=== PATIENT | female | born 1945 | race Caucasian/White ===

== ENCOUNTER 2023-04-01 00:38 | Outpatient (REF) | payer MEDICARE, MEDICAID, SELFPAY ==
[2023-04-01 10:27] LABS: Thyroid Stimulating Hormone <0.007 uIU/mL (0.358-3.740)
== END 2023-04-01 00:39 | disposition home or self-care (01) ==
LOC: LAB 00:38
PROVIDERS: PCP Family Medicine; Visit Provider Family Medicine
DX: E03.9 Hypothyroidism, unspecified (principal)
CPT/HCPCS: 36415; 84443

== ENCOUNTER 2023-05-11 02:02 | Outpatient (REF) | payer MEDICARE, MEDICAID, SELFPAY ==
[2023-05-11 13:11] LABS: Basophils Absolute Auto 0.1 10^3/uL (0.0-0.1); Basophils Percent Auto 0.7 % (0.2-2.0); Eosinophils Absolute Auto 0.3 10^3/uL (0.0-0.7); Eosinophils Percent Auto 3.5 % (0.9-7.0); Hematocrit 42.3 % (36.0-48.0); Hemoglobin 13.4 g/dL (12.0-16.0); Immature Granulocytes Abs Auto 0.02 10^3/uL (0.00-0.03); Immature Granulocytes Pct Auto 0.2 % (0.0-0.5); Lymphocytes Absolute Auto 2.3 10^3/uL (1.2-3.8); Lymphocytes Percent Auto 27.7 % (20.5-60.0); Mean Corpuscular HGB Conc 31.7 g/dL (29.9-35.2); Mean Corpuscular Hemoglobin 33.5 pg (26.7-34.0); Mean Platelet Volume 12.2 fL (9.5-13.5); Monocytes Absolute Auto 0.5 10^3/uL (0.3-0.8); Monocytes Percent Auto 6.5 % (1.7-12.0); Neutrophils Absolute Auto 5.1 10^3/uL (1.4-6.5); Neutrophils Percent Auto 61.4 % (43.0-75.0); Platelet Count 282 10^3/uL (150-450); Red Cell Distribution Width 14.4 % (11.0-15.0); White Blood Count 8.3 10^3/uL (4.0-11.0)
[2023-05-11 13:25] LABS: Mean Corpuscular Volume 105.8 fL (81.0-99.0)
[2023-05-11 15:18] LABS: Alanine Aminotransferase 18 U/L (14-59); Albumin Globulin Ratio 0.9; Albumin Level 3.4 g/dL (3.4-5.0); Alkaline Phosphatase 107 U/L (46-116); Anion Gap 8.5; Aspartate Amino Transferase 13 U/L (15-37); BUN Creatinine Ratio 16.9; Bilirubin Total 0.4 mg/dL (0.2-1.0); Carbon Dioxide 29.4 mmol/L (21.0-32.0); Chloride 104 mmol/L (98-107); Estimated GFR (African America >60 (>=60); Estimated GFR (Non-African Ame >60 (>=60); Globulin 3.7 g/dL; Glucose 87 mg/dL (74-106); Potassium 3.9 mmol/L (3.5-5.1); Sodium 138 mmol/L (136-145); Total Protein 7.1 g/dL (6.4-8.2)
== END 2023-05-11 02:03 | disposition home or self-care (01) ==
LOC: LAB 02:02
PROVIDERS: PCP Family Medicine; Visit Provider Family Medicine
DX: I25.119 Atherosclerotic heart disease of native coronary artery with unspecified angina pectoris (principal); J44.9 Chronic obstructive pulmonary disease, unspecified; I10 Essential (primary) hypertension; I47.1 Supraventricular tachycardia; K21.9 Gastro-esophageal reflux disease without esophagitis
CPT/HCPCS: 36415; 80053; 83880; 85025

== ENCOUNTER 2023-05-13 04:18 | Outpatient (REF) | payer MEDICARE, MEDICAID, SELFPAY ==
[2023-05-13 11:35] LABS: Free T4 1.21 ng/dL (0.76-1.46)
[2023-05-13 12:17] LABS: Thyroid Stimulating Hormone 0.017 uIU/mL (0.358-3.740)
== END 2023-05-13 04:19 | disposition home or self-care (01) ==
LOC: LAB 04:18
PROVIDERS: PCP Family Medicine; Visit Provider Family Medicine
DX: E03.9 Hypothyroidism, unspecified (principal)
CPT/HCPCS: 36415; 84439; 84443

== ENCOUNTER 2023-06-10 00:54 | Outpatient (REF) | payer MEDICARE, MEDICAID, SELFPAY | END 2023-06-10 00:55 | disposition home or self-care (01) | LOC: LAB 00:54 | PROVIDERS: PCP Family Medicine; Visit Provider Family Medicine | DX: E03.9 Hypothyroidism, unspecified (principal) | CPT/HCPCS: 36415; 84443 ==

== ENCOUNTER 2023-08-05 04:22 | Outpatient (REF) | payer MEDICARE, MEDICAID, SELFPAY ==
[2023-08-05 08:05] LABS: Basophils Absolute Auto 0.1 10^3/uL (0.0-0.1); Basophils Percent Auto 0.8 % (0.2-2.0); Eosinophils Absolute Auto 0.3 10^3/uL (0.0-0.7); Eosinophils Percent Auto 3.4 % (0.9-7.0); Immature Granulocytes Abs Auto 0.02 10^3/uL (0.00-0.03); Immature Granulocytes Pct Auto 0.2 % (0.0-0.5); Lymphocytes Absolute Auto 3.1 10^3/uL (1.2-3.8); Lymphocytes Percent Auto 36.4 % (20.5-60.0); Mean Corpuscular HGB Conc 32.5 g/dL (29.9-35.2); Mean Corpuscular Hemoglobin 35.7 pg (26.7-34.0); Mean Platelet Volume 12.3 fL (9.5-13.5); Monocytes Absolute Auto 0.5 10^3/uL (0.3-0.8); Neutrophils Absolute Auto 4.5 10^3/uL (1.4-6.5); Neutrophils Percent Auto 53.2 % (43.0-75.0); Platelet Count 248 10^3/uL (150-450); Red Blood Count 3.64 10^6/uL (4.20-5.40); Red Cell Distribution Width 14.3 % (11.0-15.0); White Blood Count 8.5 10^3/uL (4.0-11.0)
[2023-08-05 08:29] LABS: Mean Corpuscular Volume 109.9 fL (81.0-99.0)
[2023-08-05 08:30] LABS: Anion Gap 13.8; BUN Creatinine Ratio 21.1; Calcium 9.1 mg/dL (8.5-10.1); Carbon Dioxide 27.4 mmol/L (21.0-32.0); Chloride 107 mmol/L (98-107); Estimated GFR (African America >60 (>=60); Estimated GFR (Non-African Ame >60 (>=60); Glucose 83 mg/dL (74-106); Potassium 4.2 mmol/L (3.5-5.1); Sodium 144 mmol/L (136-145)
--- OUTSIDE RECORDS SUMMARY | 2023-09-06 20:02 | XMS_ITS | CCD ---
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 Name Role Phone HOUSE, DR ROSE Primary Care Unavailable PAY ., DR SANDOVAL Admitting Unavailable PAY ., DR SANDOVAL Attending Unavailable ZIEBER, DR ISAIAH Carey Consulting Unavailable PAY ., DR SANDOVAL Consulting Unavailable HOUSE, DR ROSE Primary Care Unavailable HAY ., DR SEGURA Admitting Unavailable HAY ., DR SEGURA Attending Unavailable HAY ., DR SEGURA Consulting Unavailable AILYN, MARIANA Consulting Unavailable TROTTI, RIMA Consulting Unavailable HOUSE, DR ROSE Primary Care Unavailable HOY ., DR GARCIA Admitting Unavailable HOY ., DR GARCIA Attending Unavailable HOY ., DR GARCIA Consulting Unavailable NADERER, DR SHARON Damico Consulting Unavailable MARKER ., DR COONEY Consulting Unavailable KLIPPER, PAPA Consulting Unavailable BERE FONTENOT Consulting Unavailable TISH JURADO Consulting Unavailable Problems Active Problems Problem Classification Problem Date Documented Da te Episodic/Chronic Chronic obstructive pulmonary disease and bronchiectasis (2 sources) Chronic obstructive pulmonary disease, unspecified; Translations: [COPD UNSPECIFIED] Onset: 08-16-2022 Chronic Delirium, dementia, and amnestic and other cognitive disorders (1 source) Unspecified dementia without behavioral disturbance; Translations: [UNSP SAMIRA UNS SEV W/O DSTRB ANXTY] Onset: 01-31-2023 Chronic Esophageal disorders (1 source) Gastro-esophageal reflux disease without esophagitis; Translations: [GERD WITHOUT ESOPHAGITIS] Onset: 08-04-2022 Chronic Menopausal disorders (1 source) Hormone replacement therapy; Translations: [HORMONE REPLACEMENT THERAPY] Onset: 01-31-2023 Episodic Other aftercare (1 source) Other care home (current) drug therapy; Translations: [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 DRUG THERAPY] Onset: 01-31-2023 Episodic Substance-related disorders (1 source) Nicotine dependence, cigarettes, uncomplicated; Translations: [NICOTINE DEPEND CIGARETTES UNCOMP] Onset: 08-04-2022 Chronic Syncope (4 sources) Syncope and collapse; Translations: [SYNCOPE AND COLLAPSE] Onset: 01-28-2023 Episodic Thyroid disorders (1 source) Hypothyroidism, unspecified; Translations: [HYPOTHYROIDISM UNSPECIFIED] Onset: 01-31-2023 Chronic Unclassified (1 source) ACIDOSIS UNSPECIFIED; Translations: [ACIDOSIS UNSPECIFIED] Onset: 08-04-2022 Unclassified (1 source) CONTACT W/AND (SUSP) EXPOS COVID-19; Translations: [CONTACT W/AND (SUSP) EXPOS COVID-19] Onset: 08-04-2022 Past or Other Problems Problem Classification Problem Date Documented Da te Episodic/Chronic Cardiac dysrhythmias (1 source) Tachycardia, unspecified; Translations: [TACHYCARDIA UNSPECIFIED] Onset: 08-04-2022 Episodic Fluid and electrolyte disorders (1 source) Hypokalemia; Translations: [HYPOKALEMIA] Onset: 08-04-2022 Episodic Nonspecific chest pain (4 sources) Chest pain, unspecified; Translations: [CHEST PAIN UNSPECIFIED] Onset: 08-04-2022 Episodic Other lower respiratory disease (1 source) Shortness of breath; Translations: [SHORTNESS OF BREATH] Onset: 08-04-2022 Episodic Other screening for suspected conditions (not mental disorders or infectious disease) (1 source) Other specified abnormal findings of blood chemistry; Translations: [OTH SPEC ABNORMAL FINDINGS BLD CHEM] Onset: 08-04-2022 Episodic Results Test Name Value Interpretation Reference Range Facil ity CBC AUTO DIFFon 01-28-2023 BASO # 0.1 103/ul Normal 0.0-0.1 [facility] Comment on above: Performed By: #### C BC #### [facility] [address] [place] [address] Dr. Mac Koenig Basophils/100 WBC (Bld) 0.7 % Normal 0.2-2.0 [facility] Comment on above: Performed By: #### C BC #### [facility] [address] [place] [address] Dr. aMc Koenig EO # 0.3 103/ul Normal 0.0-0.7 [facility] Comment on above: Performed By: #### C BC #### [facility] [address] [place] [address] Dr. Mac Koenig Eosinophils/100 WBC (Bld) 2.9 % Normal 0.9-7.0 [facility] Comment on above: Performed By: #### C BC #### [facility] [address] [place] [address] Dr. Mac Koenig Erythrocyte distribution wid th (RBC) [Ratio] 13.1 % Normal 11.0-15.0 [facility] Comment on above: Performed By: #### C BC #### [facility] [address] [place] [address] Dr. Mac Koenig Hematocrit (Bld) [Volume fraction] 42.7 % Normal 3 6.0-48.0 [facility] Comment on above: Performed By: #### C BC #### [facility] [address] [place] [address] Dr. Mac Koenig Hemoglobin (Bld) [Mass/Vol] 13.7 g/dL Normal 12.0-16. 0 [facility] Comment on above: Performed By: #### C BC #### [facility] [address] [place] [address] Dr. Mac Koenig IG # 0.04 10e3/ul Critically high 0.00-0.03 [facility] Comment on above: Performed By: #### C BC #### [facility] [address] [place] [address] Dr. Mac Koenig IG % 0.4 % Normal 0.0-0.5 [facility] Comment on above: Performed By: #### C BC #### [facility] [address] [place] [address] Dr. Mac Koenig LYMPH # 3.5 103/ul Normal 1.2-3.8 [facility] Comment on above: Performed By: #### C BC #### [facility] [address] [place] [address] Dr. Mac Koenig Lymphocytes/100 WBC (Bld) 35.1 % Normal 20.5-60.0 [facility] Comment on above: Performed By: #### C BC #### [facility] [address] [place] [address] Dr. Mac Koenig MANUAL DIFF REQ NO Normal [facility] Comment on above: Performed By: #### C BC #### [facility] [address] [place] [address] Dr. Mac Koenig MCH (RBC) [Entitic mass] 33.7 pg Normal 26.7-34.0 [facility] Comment on above: Performed By: #### C BC #### [facility] [address] [place] [address] Dr. Mac Koenig MCHC (RBC) [Mass/Vol] 32.1 g/dL Normal 29.9-35.2 [facility] Comment on above: Performed By: #### C BC #### [facility] [address] [place] [address] Dr. Mac Koenig MCV (RBC) [Entitic vol] 104.9 fL Critically high 81.0-99 .0 [facility] Comment on above: Performed By: #### C BC #### [facility] [address] [place] [address] Dr. Mac Koenig MONO # 0.8 103/ul Normal 0.3-0.8 [facility] Comment on above: Performed By: #### C BC #### [facility] [address] [place] [address] Dr. Mac Koenig Monocytes/100 WBC (Bld) 7.6 % Normal 1.7-12.0 [facility] Comment on above: Performed By: #### C BC #### [facility] [address] [place] [address] Dr. Mac Koenig NEUT # 5.3 103/ul Normal 1.4-6.5 [facility] Comment on above: Performed By: #### C BC #### [facility] [address] [place] [address] Dr. Mac Koenig Neutrophils/100 WBC (Bld) 53.3 % Normal 43.0-75.0 [facility] Comment on above: Performed By: #### C BC #### [facility] [address] [address] [address] Mac Koenig Platelet mean volume (Bld) [ Entitic vol] 12.7 fL Normal 9.5-13.5 [facility] Comment on above: Performed By: #### C BC #### [facility] [address] [address] [address] Mac Koenig PLT 320 103/ul Normal 150-450 [facility] Comment on above: Performed By: #### C BC #### [facility] [address] [address] [address] Mac Koenig RBC 4.07 106/ul Critically low 4.20-5.40 [facility] Comment on above: Performed By: #### C BC #### [facility] [address] [place] [address] Dr. Mac Koenig WBC 9.9 103/ul Normal 4.0-11.0 [facility] Comment on above: Performed By: #### C BC #### [facility] [address] [place] [address] Dr. Mac Koenig PROF 14(COMP METB)on 023 Albumin [Mass/Vol] 3.3 g/dL Critically low 3.4-5.0 [facility] Comment on above: Performed By: #### C BC #### [facility] [address] [place] [address] Dr. Mac Koenig Albumin/Globulin [Mass ratio] 0.8 {ratio} Normal [facility] Comment on above: Performed By: #### C BC #### [facility] [address] [address] [address] Mac Koenig ALP [Catalytic activity/Vol] 123 U/L Critically high 46 -116 [facility] Comment on above: Performed By: #### C BC #### [facility] [address] [place] [address] Dr. Mac Koenig ALT [Catalytic activity/Vol] 22 U/L Normal 14-59 [facility] Comment on above: Performed By: #### C BC #### [facility] [address] [address] [address] Mac Koenig Anion gap [Moles/Vol] 8.9 mmol/L Normal [facility] Comment on above: Performed By: #### C BC #### [facility] [address] [address] [address] Mac Koenig AST [Catalytic activity/Vol] 13 U/L Critically low 15- 37 [facility] Comment on above: Performed By: #### C BC #### [facility] [address] [address] [address] Mac Koenig Bilirubin [Mass/Vol] 0.3 mg/dL Normal 0.2-1.0 [facility] Comment on above: Performed By: #### C BC #### [facility] [address] [address] [address] Mac Koenig Calcium [Mass/Vol] 9.2 mg/dL Normal 8.5-10.1 [facility] Comment on above: Performed By: #### C BC #### [facility] [address] [address] [address] Mac Koenig Chloride [Moles/Vol] 105 mmol/L Normal 98-107 [facility] Comment on above: Performed By: #### C BC #### [facility] [address] [address] [address] Mac Koenig CO2 [Moles/Vol] 30.3 mmol/L Normal 21.0-32.0 [facility] Comment on above: Performed By: #### C BC #### [facility] [address] [address] [address] Mac Koenig Creatinine [Mass/Vol] 0.89 mg/dL Normal 0.55-1.02 [facility] Comment on above: Performed By: #### C BC #### [facility] [address] [address] [address] Mac Koenig EGFR-AF MALAYSIAN >60 Normal >=60 [facility] Comment on above: Performed By: #### C BC #### [facility] [address] [place] [address] Dr. Mac Koenig EGFR-NON AF MALAYSIAN >60 Normal >=60 [facility] Comment on above: Performed By: #### C BC #### [facility] [address] [place] [address] Dr. Mac Koenig Globulin (S) [Mass/Vol] 3.9 g/dL Normal [facility] Comment on above: Performed By: #### C BC #### [facility] [address] [address] [address] Mac Koenig Glucose [Mass/Vol] 81 mg/dL Normal 74-106 [facility] Comment on above: Performed By: #### C BC #### [facility] [address] [place] [address] Dr. Mac Koenig Potassium [Moles/Vol] 4.2 mmol/L Normal 3.5-5.1 [facility] Comment on above: Performed By: #### C BC #### [facility] [address] [place] [address] Dr. Mac Koenig Protein [Mass/Vol] 7.2 g/dL Normal 6.4-8.2 [facility] Comment on above: Performed By: #### C BC #### [facility] [address] [place] [address] Dr. Mac Koenig Sodium [Moles/Vol] 140 mmol/L Normal 136-145 [facility] Comment on above: Performed By: #### C BC #### [facility] [address] [place] [address] Dr. Mac Koenig Urea nitrogen [Mass/Vol] 14.0 mg/dL Normal 7.0-18.0 [facility] Comment on above: Performed By: #### C BC #### [facility] [address] [place] [address] Dr. Mac Koenig Urea nitrogen/Creatinine [Mass ratio] 15.7 mg/mg Normal [facility] Comment on above: Performed By: #### C BC #### [facility] [address] [place] [address] Dr. Mac Koenig TROPONIN, HIGH SENSITIVITYon 05-12-2023 HSTROP 6.4 pg/mL Normal 4.0-51.3 [facility] Comment on above: Result Comment: CUT- OFF POINTS HAVE BEEN ESTABLISHED BASED ON THE FOURTH UNIVERSAL DEFINITIONS OF MYOCARDIAL INFARCTION. THE UPPER REFERENCE LIMIT (URL) OF TROPONIN, DEFINED THE 99TH PERCENTILE OF cTnI DISTRIBUTION IN A REFERENCE POPULATION, HAS BEEN CONFIRMED THE DECISION THRESHOLD FOR HI DIAGNOSIS. Performed By: #### C BC #### [facility] [address] [place] [address] Dr. Mac Koenig XR CHEST 1 Von 01-28-2023 XR CHEST 1 V EXAMINATION: XR CHES T 1 V HISTORY: SHORTNESS OF BREATH COMPARISON: XR chest 08/09/2022 FINDINGS: LUNGS: Mild opacities and stranding within lung bases obscuring the heart margins. VASCULATURE: No increased pulmonary vasculature. PLEURA: No pneumothorax, effusion, or pleural thickening. CARDIAC: No cardiomegaly or cardiac silhouette abnormality. MEDIASTINUM: No visible mass or adenopathy. BONES: No fracture or visible bone lesion. OTHER: Negative. IMPRESSION: 1. Mild-moderate bibasilar infiltrates; new since prior study. Electronically authenticated by: ISAIAH MICHAELS Date: 2023-01-28 14:36 Normal [facility] BNPon 08-09-2022 Natriuretic peptide B (Bld) [Mass/Vol] 427.0 pg/mL Normal <=1,800.0 [facility] Comment on above: Performed By: #### L ACT #### [facility] [address] [place] [address] Dr. Mac Koenig CARDIAC KARINA 3-6on 2 CK [Catalytic activity/Vol] 30 U/L Normal 26-[address] [facility] Comment on above: Performed By: #### T 4 #### [facility] [address] [place] [address] Dr. Mac Koenig CK.MB [Mass/Vol] 1.65 ng/mL Normal <=3.60 [facility] Comment on above: Performed By: #### T 4 #### [facility] [address] [place] [address] Dr. Mac Koenig HSTROP 8.3 pg/mL Normal 4.0-51.3 [facility] Comment on above: Result Comment: CUT- OFF POINTS HAVE BEEN ESTABLISHED BASED ON THE FOURTH UNIVERSAL DEFINITIONS OF MYOCARDIAL INFARCTION. THE UPPER REFERENCE LIMIT (URL) OF TROPONIN, DEFINED THE 99TH PERCENTILE OF cTnI DISTRIBUTION IN A REFERENCE POPULATION, HAS BEEN CONFIRMED THE DECISION THRESHOLD FOR HI DIAGNOSIS. Performed By: #### T 4 #### [facility] [address] [place] [address] Dr. Mac Koenig CBC AUTO DIFFon 08-09-2022 BASO # 0.1 103/ul Normal 0.0-0.1 [facility] Comment on above: Performed By: #### C BC #### [facility] [address] [place] [address] Dr. Mac Koenig Basophils/100 WBC (Bld) 1.0 % Normal 0.2-2.0 [facility] Comment on above: Performed By: #### C BC #### [facility] [address] [place] [address] Dr. Mac Koenig EO # 0.2 103/ul Normal 0.0-0.7 [facility] Comment on above: Performed By: #### C BC #### [facility] [address] [place] [address] Dr. aMc Koenig Eosinophils/100 WBC (Bld) 2.1 % Normal 0.9-7.[address] [facility] Comment on above: Performed By: #### C BC #### [facility] [address] [place] [address] Dr. Mac Koenig Erythrocyte distribution wid th (RBC) [Ratio] 14.1 % Normal 11.0-15.0 [facility] Comment on above: Performed By: #### C BC #### [facility] [address] [place] [address] Dr. Mac Koenig Hematocrit (Bld) [Volume fraction] 45.2 % Normal 3 6.0-48.0 [facility] Comment on above: Performed By: #### C BC #### [facility] [address] [place] [address] Dr. Mac Koenig Hemoglobin (Bld) [Mass/Vol] 15.2 g/dL Normal 12.0-16. [address] [facility] Comment on above: Performed By: #### C BC #### [facility] [address] [place] [address] Dr. Mac Koenig IG # 0.02 10e3/ul Normal 0.00-0.03 [facility] Comment on above: Performed By: #### C BC #### [facility] [address] [place] [address] Dr. Mac Koenig IG % 0.3 % Normal 0.0-0.5 [facility] Comment on above: Performed By: #### C BC #### [facility] [address] [place] [address] Dr. Mac Koenig LYMPH # 2.7 103/ul Normal 1.2-3.8 [facility] Comment on above: Performed By: #### C BC #### [facility] [address] [place] [address] Dr. Mac Koenig Lymphocytes/100 WBC (Bld) 34.9 % Normal 20.5-60.[address] [facility] Comment on above: Performed By: #### C BC #### [facility] [address] [place] [address] Dr. Mac Koenig MANUAL DIFF REQ NO Normal [facility] Comment on above: Performed By: #### C BC #### [facility] [address] [place] [address] Dr. Mac Koenig MCH (RBC) [Entitic mass] 37.1 pg Critically high 26.7-[address] [facility] Comment on above: Performed By: #### C BC #### [facility] [address] [place] [address] Dr. Mac Koenig MCHC (RBC) [Mass/Vol] 33.6 g/dL Normal 29.9-35.[address] [facility] Comment on above: Performed By: #### C BC #### [facility] [address] [place] [address] Dr. Mac Koenig MCV (RBC) [Entitic vol] 110.2 fL Critically high 81.0-[address] [facility] Comment on above: Performed By: #### C BC #### [facility] [address] [address] [address] Mac Koenig MONO # 0.5 103/ul Normal 0.3-0.8 [facility] Comment on above: Performed By: #### C BC #### [facility] [address] [place] [address] Dr. Mac Koenig Monocytes/100 WBC (Bld) 6.3 % Normal 1.7-12.0 [facility] Comment on above: Performed By: #### C BC #### [facility] [address] [place] [address] Dr. Mac Koenig NEUT # 4.3 103/ul Normal 1.4-6.5 [facility] Comment on above: Performed By: #### C BC #### [facility] [address] [place] [address] Dr. Mac Koenig Neutrophils/100 WBC (Bld) 55.4 % Normal 43.0-75.0 [facility] Comment on above: Performed By: #### C BC #### [facility] [address] [place] [address] Dr. Mac Koenig Platelet mean volume (Bld) [ Entitic vol] 12.1 fL Normal 9.5-13.5 [facility] Comment on above: Performed By: #### C BC #### [facility] [address] [place] [address] Dr. Mac Koenig PLT 459 103/ul Critically high 150-450 [facility] Comment on above: Performed By: #### C BC #### [facility] [address] [place] [address] Dr. Mac Koenig RBC 4.10 106/ul Critically low 4.20-5.40 [facility] Comment on above: Performed By: #### C BC #### [facility] [address] [place] [address] Dr. Mac Koenig WBC 7.7 103/ul Normal 4.0-11.0 [facility] Comment on above: Performed By: #### C BC #### [facility] [address] [address] [address] Mac Koenig PROF 14(COMP METB)on 08-09- 022 Albumin [Mass/Vol] 3.7 g/dL Normal 3.4-5.0 [facility] Comment on above: Performed By: #### L ACT #### [facility] [address] [address] [address] Mac Koenig Albumin/Globulin [Mass ratio] 0.8 {ratio} Normal [facility] Comment on above: Performed By: #### L ACT #### [facility] [address] [place] [address] Dr. Mac Koenig ALP [Catalytic activity/Vol] 142 U/L Critically high 46 -116 [facility] Comment on above: Performed By: #### L ACT #### [facility] [address] [address] [address] Mac Koenig ALT [Catalytic activity/Vol] 32 U/L Normal 14-59 [facility] Comment on above: Performed By: #### L ACT #### [facility] [address] [place] [address] Dr. Mac Koenig Anion gap [Moles/Vol] 8.7 mmol/L Normal [facility] Comment on above: Performed By: #### L ACT #### [facility] [address] [address] [address] Mac Koenig AST [Catalytic activity/Vol] 63 U/L Critically high 15 -37 [facility] Comment on above: Performed By: #### L ACT #### [facility] [address] [address] [address] Mac Koenig Bilirubin [Mass/Vol] 0.4 mg/dL Normal 0.2-1.0 [facility] Comment on above: Performed By: #### L ACT #### [facility] [address] [address] [address] Mac Koenig Calcium [Mass/Vol] 10.0 mg/dL Normal 8.5-10.1 [facility] Comment on above: Performed By: #### L ACT #### [facility] [address] [address] [address] Mac Koenig Chloride [Moles/Vol] 99 mmol/L Normal 98-107 [facility] Comment on above: Performed By: #### L ACT #### [facility] [address] [address] [address] Mac Koenig CO2 [Moles/Vol] 31.5 mmol/L Normal 21.0-32.0 [facility] Comment on above: Performed By: #### L ACT #### [facility] [address] [place] [address] Dr. Mac Koenig Creatinine [Mass/Vol] 0.73 mg/dL Normal 0.55-1.02 [facility] Comment on above: Performed By: #### L ACT #### [facility] [address] [place] [address] Dr. Mac Koenig EGFR-AF MALAYSIAN >60 Normal >=60 [facility] Comment on above: Performed By: #### L ACT #### [facility] [address] [place] [address] Dr. Mac Koenig EGFR-NON AF MALAYSIAN >60 Normal >=60 [facility] Comment on above: Performed By: #### L ACT #### [facility] [address] [place] [address] Dr. Mac Koenig Globulin (S) [Mass/Vol] 4.6 g/dL Normal [facility] Comment on above: Performed By: #### L ACT #### [facility] [address] [address] [address] Mac Koenig Glucose [Mass/Vol] 110 mg/dL Critically high 74-106 [facility] Comment on above: Performed By: #### L ACT #### [facility] [address] [place] [address] Dr. Mac Koenig Potassium [Moles/Vol] 4.2 mmol/L Normal 3.5-5.1 [facility] Comment on above: Performed By: #### L ACT #### [facility] [address] [place], [place] [address] Dr. Mac Koenig Protein [Mass/Vol] 8.3 g/dL Critically high 6.4-8.2 [facility] Comment on above: Performed By: #### L ACT #### [facility] [address] [place], [place] [address] Dr. Mac Koenig Sodium [Moles/Vol] 135 mmol/L Critically low 136-145 Th [facility] Comment on above: Performed By: #### L ACT #### [facility] [address] [address] [address] Mac Koenig Urea nitrogen [Mass/Vol] 10.0 mg/dL Normal 7.0-18.0 [facility] Comment on above: Performed By: #### L ACT #### [facility] [address] [address] [address] Mac Koenig Urea nitrogen/Creatinine [Mass ratio] 13.7 mg/mg Normal [facility] Comment on above: Performed By: #### L ACT #### [facility] [id number] Mac Koenig TROPONIN, HIGH SENSITIVITYon 08-09-2022 HSTROP 9.1 pg/mL Normal 4.0-51.3 [facility] Comment on above: Result Comment: CUT- OFF POINTS HAVE BEEN ESTABLISHED BASED ON THE FOURTH UNIVERSAL DEFINITIONS OF MYOCARDIAL INFARCTION. THE UPPER REFERENCE LIMIT (URL) OF TROPONIN, DEFINED THE 99TH PERCENTILE OF cTnI DISTRIBUTION IN A REFERENCE POPULATION, HAS BEEN CONFIRMED THE DECISION THRESHOLD FOR HI DIAGNOSIS. Performed By: #### L ACT #### [facility] [address] [id number] Mac Koenig XR CHEST 1 Von 08-09-2022 XR CHEST 1 V ONE-VIEW CHEST RADIO GRAPH, 08/09/2022 5:01 PM EST COMPARISON: Chest, 07/22/2022. CLINICAL HISTORY: CHEST PAIN, UNSPECIFIED Findings and impression: 1. No acute cardiopulmonary disease. 2. Normal heart size. 3. No acute osseous abnormality. Electronically authenticated by: Aida BLAKE Date: 2022-08-09 17:54 Normal [facility] CBC AUTO DIFFon 07-26-2022 BASO # 0.0 103/ul Normal 0.0-0.1 [facility] Comment on above: Performed By: #### C BC #### [facility] [address] [place] [address] Dr. Mac Koenig Basophils/100 WBC (Bld) 0.3 % Normal 0.2-2.0 [facility] Comment on above: Performed By: #### C BC #### [facility] [address] [place] [address] Dr. Mac Koenig EO # 0.1 103/ul Normal 0.0-0.7 [facility] Comment on above: Performed By: #### C BC #### [facility] [address] [place] [address] Dr. Mac Koenig Eosinophils/100 WBC (Bld) 0.5 % Critically low 0.9-7. 0 [facility] Comment on above: Performed By: #### C BC #### [facility] [address] [place] [address] Dr. Mac Koenig Erythrocyte distribution wid th (RBC) [Ratio] 13.5 % Normal 11.0-15.0 [facility] Comment on above: Performed By: #### C BC #### [facility] [address] [place] [address] Dr. Mac Koenig Hematocrit (Bld) [Volume fraction] 35.5 % Critically low 36.0-48.0 [facility] Comment on above: Performed By: #### C BC #### [facility] [address] [place] [address] Dr. Mac Koenig Hemoglobin (Bld) [Mass/Vol] 12.2 g/dL Normal 12.0-16. 0 [facility] Comment on above: Performed By: #### C BC #### [facility] [address] [place] [address] Dr. Mac Koenig IG # 0.03 10e3/ul Normal 0.00-0.03 [facility] Comment on above: Performed By: #### C BC #### [facility] [address] [address] [address] Mac Koenig IG % 0.3 % Normal 0.0-0.5 [facility] Comment on above: Performed By: #### C BC #### [facility] [address] [address] [address] Mac Koenig LYMPH # 1.4 103/ul Normal 1.2-3.8 [facility] Comment on above: Performed By: #### C BC #### [facility] [address] [place] [address] Dr. Mac Koenig Lymphocytes/100 WBC (Bld) 13.8 % Critically low 20.5-6 0.0 [facility] Comment on above: Performed By: #### C BC #### [facility] [address] [place] [address] Dr. Mac Koenig MANUAL DIFF REQ NO Normal [facility] Comment on above: Performed By: #### C BC #### [facility] [address] [address] [address] Mac Koenig MCH (RBC) [Entitic mass] 36.9 pg Critically high 26.7-3 4.0 [facility] Comment on above: Performed By: #### C BC #### [facility] [address] [place] [address] Dr. Mac Koenig MCHC (RBC) [Mass/Vol] 34.4 g/dL Normal 29.9-35.2 [facility] Comment on above: Performed By: #### C BC #### [facility] [address] [address] [address] Mac Koenig MCV (RBC) [Entitic vol] 107.3 fL Critically high 81.0-99 .0 [facility] Comment on above: Performed By: #### C BC #### [facility] [address] [address] [address] Mac Koenig MONO # 0.6 103/ul Normal 0.3-0.8 [facility] Comment on above: Performed By: #### C BC #### [facility] [address] [place] [address] Dr. Mac Koenig Monocytes/100 WBC (Bld) 5.8 % Normal 1.7-12.0 [facility] Comment on above: Performed By: #### C BC #### [facility] [address] [place] [address] Dr. Mac Koenig NEUT # 8.0 103/ul Critically high 1.4-6.5 [facility] Comment on above: Performed By: #### C BC #### [facility] [address] [place] [address] Dr. Mac Koenig Neutrophils/100 WBC (Bld) 79.3 % Critically high 43.0- 75.0 [facility] Comment on above: Performed By: #### C BC #### [facility] [address] [place] [address] Dr. Mac Koenig Platelet mean volume (Bld) [ Entitic vol] 12.9 fL Normal 9.5-13.5 [facility] Comment on above: Performed By: #### C BC #### [facility] [address] [place] [address] Dr. Mac Koenig PLT 199 103/ul Normal 150-450 [facility] Comment on above: Performed By: #### C BC #### [facility] [address] [place] [address] Dr. Mac Koenig RBC 3.31 106/ul Critically low 4.20-5.40 [facility] Comment on above: Performed By: #### C BC #### [facility] [address] [place] [address] Dr. Mac Koenig WBC 10.0 103/ul Normal 4.0-11.[address] [facility] Comment on above: Performed By: #### C BC #### [facility] [address] [place] [address] Dr. Mac Koenig ECHOCARDIO M/2D COMPLETEon 1 09-25-2021 ECHOCARDIO M/2D COMPLETE Patient: MICHEAL DAVE Exam Date: 07/26/2022 : 1945 Gender:F Ordering : DR RADHA PETERS . Admission #: [id number] Family : DR ROSE DIAZ D.O. Order #: [id number] CLICK HERE TO VIEW EXAM ECHOCARDIOGRAM REPORT PROCEDURE: CARDIO PULMONARY ECHOCARDIO M/2D COMP INDICATIONS: Chest pain, tachycardia COMPARISON: None. DESCRIPTION: COMPLETE ECHOCARDIOGRAM Real-time transthoracic echocardiography with 2D, M-mode, spectral and color flow Doppler performed. QUALITY: Technical quality was good. LEFT VENTRICLE: Normal chamber size. Thickened septal wall. Global left ventricular systolic function is normal. LV EF: Calculated left ventricular ejection fraction is 69% DIASTOLIC: Diastolic function is indeterminate. ATRIAL SEPTUM: LEFT ATRIUM: Mild dilatation. RIGHT ATRIUM: Mild dilatation. RIGHT VENTRICLE: Normal chamber size. Normal right ventricular systolic function. TRICUSPID VALVE: Normal mobility and thickness. No stenosis with mild to moderate regurgitation. No evidence of pulmonary hypertension. RVSP 28 mmHg MITRAL VALVE: Normal mobility and thickness. No mitral valve prolapse. No evidence of mitral valve stenosis. There is no mitral annular calcification. Mild mitral regurgitation. AORTIC VALVE: Normal trileaflet appearance. No visible sclerosis. Normal leaflet mobility. No evidence of aortic valve stenosis. Mild aortic regurgitation. AORTIC ROOT: Normal diameter and appearance. PULMONIC VALVE: Normal thickness and mobility. No stenosis. No regurgitation. PERICARDIUM: No evidence of pericardial effusion. IVC: Collapses with inspirations. Normal size. PLEURA: CONCLUSION: 1. Ventricular systolic function is normal. LVEF is 65 to 70%. 2. Mild biatrial dilatation. 3. Mild to moderate tricuspid regurgitation. 4. Mild mitral and aortic regurgitation. 5. Normal right-sided pressures. 6. No pericardial effusion. Adult Echocardiography Procedure Report Left Ventricle LVEDD (3.7 - 5.6 cm): 3.93 cm LVESD (2.2 - 4.0 cm): 2.53 cm LVIVS thickness (0.6 - 1.2 cm): 1.26 cm LVPW thickness (0.5 - 1.0 cm): 0.90 cm e': 0.08 m/s E - e': 7.69 LVOT Max Gradient: 2.91 mm[Hg] Peak Velocity (LVOT): 0.85 m/s LVOT Diameter 1.97 cm Left Ventricular Ejection Fraction: 65-70% Left Atrium LA Volume Index (2D A2C): 45.52 ml, 45.52 ml Left Atrium Systolic Dimension: 3.32 cm Mitral Valve MV E to A Ratio: 0.73 Mitral Valve A-Wave Peak Velocity: 0.81 m/s Mitral Valve E-Wave Peak Velocity: 0.59 m/s Right Ventricle RV Internal Diastolic Dimension: 2.90 cm Aorta AO Root Diam: 3.05 cm Ascending Ao Diam: 2.60 cm Aortic Valve AoV Area (Peak Sancho): 2.03 cm2, 2.03 cm2 Deceleration Casey: 1.52 m/s2 Pressure Half-Time: 594.74 ms Peak Velocity(Antegrade Flow): 1.28 m/s Peak Gradient(Antegrade Flow): 6.58 mm[Hg] Tricuspid Valve Peak Velocity (Regurgitant Flow): 2.46 m/s, 2.50 m/s, 2.49 m/s Pulmonic Valve Mean Gradient: 2.19 mm[Hg], 2.10 mm[Hg] Mean Velocity: 0.68 m/s, 0.66 m/s Peak Velocity: 1.05 m/s, 1.05 m/s, 1.10 m/s Peak Gradient: 4.85 mm[Hg], 4.39 mm[Hg], 4.39 mm[Hg] Right Atrium Right Atrium Systolic Pressure: 36.62 ml, 36.62 ml Dictated by: Enoc Sofia M.D. on 07/27/2022 at 15:33 Approved by: Enoc Sofia M.D. on 07/27/2022 at 15:37 Normal [facility] PROF 14(COMP METB)on 022 Albumin [Mass/Vol] 2.4 g/dL Critically low 3.4-5.[address] [facility] Comment on above: Performed By: #### C MP #### [facility] [address] [place] [address] Dr. Mac Koenig Albumin/Globulin [Mass ratio] 0.6 {ratio} Normal [facility] Comment on above: Performed By: #### C MP #### [facility] [address] [place] [address] Dr. Mac Koenig ALP [Catalytic activity/Vol] 140 U/L Critically high 46 -116 [facility] Comment on above: Performed By: #### C MP #### [facility] [address] [address] [address] Mac Koenig ALT [Catalytic activity/Vol] 54 U/L Normal 14-59 [facility] Comment on above: Performed By: #### C MP #### [facility] [address] [address] [address] Mac Koenig Anion gap [Moles/Vol] 11.1 mmol/L Normal Th [facility] Comment on above: Performed By: #### C MP #### [facility] [address] [address] [address] Mac Koenig AST [Catalytic activity/Vol] 37 U/L Normal 15-37 [facility] Comment on above: Performed By: #### C MP #### [facility] [address] [address] [address] Mac Koenig Bilirubin [Mass/Vol] 0.6 mg/dL Normal 0.2-1.0 [facility] Comment on above: Performed By: #### C MP #### [facility] [address] [address] [address] Mac Koenig Calcium [Mass/Vol] 8.5 mg/dL Normal 8.5-10.1 [facility] Comment on above: Performed By: #### C MP #### [facility] [address] [address] [address] Mac Koenig Chloride [Moles/Vol] 99 mmol/L Normal 98-107 [facility] Comment on above: Performed By: #### C MP #### [facility] [address] [address] [address] Mac Koenig CO2 [Moles/Vol] 27.5 mmol/L Normal 21.0-32.0 [facility] Comment on above: Performed By: #### C MP #### [facility] [address] [address] [address] Mac Koenig Creatinine [Mass/Vol] 0.57 mg/dL Normal 0.55-1.02 [facility] Comment on above: Performed By: #### C MP #### [facility] [address] [address] [address] Mac Koenig EGFR-AF MALAYSIAN >60 Normal >=60 [facility] Comment on above: Performed By: #### C MP #### [facility] [address] [address] [address] Mac Koenig EGFR-NON AF MALAYSIAN >60 Normal >=60 [facility] Comment on above: Performed By: #### C MP #### [facility] [address] [address] [address] Mac Koengi Globulin (S) [Mass/Vol] 3.7 g/dL Normal T [facility] Comment on above: Performed By: #### C MP #### [facility] [address] [address] [address] Mac Koenig Glucose [Mass/Vol] 96 mg/dL Normal 74-106 [facility] Comment on above: Performed By: #### C MP #### [facility] [address] [address] [address] Mac Koenig Potassium [Moles/Vol] 3.6 mmol/L Normal 3.5-5.1 [facility] Comment on above: Performed By: #### C MP #### [facility] [address] [address] [address] Mac Koenig Protein [Mass/Vol] 6.1 g/dL Critically low 6.4-8.2 [facility] Comment on above: Performed By: #### C MP #### [facility] [address] [address] [address] Mac Koenig Sodium [Moles/Vol] 134 mmol/L Critically low 136-145 [facility] Comment on above: Performed By: #### C MP #### [facility] [address] [address] [address] Mac Koenig Urea nitrogen [Mass/Vol] 7.0 mg/dL Normal 7.0-18.0 [facility] Comment on above: Performed By: #### C MP #### [facility] [address] [place] [address] Dr. Mac Koenig Urea nitrogen/Creatinine [Mass ratio] 12.3 mg/mg Normal [facility] Comment on above: Performed By: #### C MP #### [facility] [address] [place] [address] Dr. Mac Koenig CBC AUTO DIFFon 07-25-2022 BASO # 0.0 103/ul Normal 0.0-0.1 [facility] Comment on above: Performed By: #### C BC #### [facility] [address] [place] [address] Dr. Mac Koenig Basophils/100 WBC (Bld) 0.5 % Normal 0.2-2.0 [facility] Comment on above: Performed By: #### C BC #### [facility] [address] [place] [address] Dr. Mac Koenig EO # 0.1 103/ul Normal 0.0-0.7 [facility] Comment on above: Performed By: #### C BC #### [facility] [address] [place] [address] Dr. Mac Koenig Eosinophils/100 WBC (Bld) 1.0 % Normal 0.9-7.[address] [facility] Comment on above: Performed By: #### C BC #### [facility] [address] [place] [address] Dr. Mac Koenig Erythrocyte distribution wid th (RBC) [Ratio] 13.7 % Normal 11.0-15.0 [facility] Comment on above: Performed By: #### C BC #### [facility] [address] [place] [address] Dr. Mac Koenig Hematocrit (Bld) [Volume fraction] 34.7 % Critically low 36.0-48.0 [facility] Comment on above: Performed By: #### C BC #### [facility] [address] [place] [address] Dr. Mac Koenig Hemoglobin (Bld) [Mass/Vol] 11.7 g/dL Critically low 12.0 -16.[address] [facility] Comment on above: Performed By: #### C BC #### [facility] [address] [address] [address] Mac Koenig IG # 0.02 10e3/ul Normal 0.00-0.03 [facility] Comment on above: Performed By: #### C BC #### [facility] [address] [address] [address] Mac Koenig IG % 0.3 % Normal 0.0-0.5 [facility] Comment on above: Performed By: #### C BC #### [facility] [address] [place] [address] Dr. Mac Koenig LYMPH # 1.2 103/ul Normal 1.2-3.8 [facility] Comment on above: Performed By: #### C BC #### [facility] [address] [place] [address] Dr. Mac Koenig Lymphocytes/100 WBC (Bld) 15.6 % Critically low 20.5-6 0.0 [facility] Comment on above: Performed By: #### C BC #### [facility] [address] [place] [address] Dr. Mac Koenig MANUAL DIFF REQ NO Normal [facility] Comment on above: Performed By: #### C BC #### [facility] [address] [place] [address] Dr. Mac Koenig MCH (RBC) [Entitic mass] 36.8 pg Critically high 26.7-3 4.0 [facility] Comment on above: Performed By: #### C BC #### [facility] [address] [place] [address] Dr. Mac Koenig MCHC (RBC) [Mass/Vol] 33.7 g/dL Normal 29.9-35.[address] [facility] Comment on above: Performed By: #### C BC #### [facility] [address] [place] [address] Dr. Mac Koenig MCV (RBC) [Entitic vol] 109.1 fL Critically high 81.0-99 .0 [facility] Comment on above: Performed By: #### C BC #### [facility] [address] [address] [address] Mac Koenig MONO # 0.5 103/ul Normal 0.3-0.8 [facility] Comment on above: Performed By: #### C BC #### [facility] [address] [place] [address] Dr. Mac Koenig Monocytes/100 WBC (Bld) 5.9 % Normal 1.7-12.0 [facility] Comment on above: Performed By: #### C BC #### [facility] [address] [place] [address] Dr. Mac Koenig NEUT # 6.0 103/ul Normal 1.4-6.5 [facility] Comment on above: Performed By: #### C BC #### [facility] [address] [place] [address] Dr. Mac Koenig Neutrophils/100 WBC (Bld) 76.7 % Critically high 43.0- 75.0 [facility] Comment on above: Performed By: #### C BC #### [facility] [address] [place] [address] Dr. Mac Koenig Platelet mean volume (Bld) [ Entitic vol] 12.4 fL Normal 9.5-13.5 [facility] Comment on above: Performed By: #### C BC #### [facility] [address] [place] [address] Dr. Mac Koenig PLT 166 103/ul Normal 150-450 [facility] Comment on above: Performed By: #### C BC #### [facility] [address] [place] [address] Dr. Mac Koenig RBC 3.18 106/ul Critically low 4.20-5.40 [facility] Comment on above: Performed By: #### C BC #### [facility] [address] [place] [address] Dr. Mac Koenig WBC 7.8 103/ul Normal 4.0-11.0 [facility] Comment on above: Performed By: #### C BC #### [facility] [address] [address] [address] Mac Koenig PROF 14(COMP METB)on 022 Albumin [Mass/Vol] 1.9 g/dL Critically low 3.4-5.[address] [facility] Comment on above: Performed By: #### T 4 #### [facility] [address] [place] [address] Dr. Mac Koenig Albumin/Globulin [Mass ratio] 0.5 {ratio} Normal [facility] Comment on above: Performed By: #### T 4 #### [facility] [address] [place] [address] Dr. Mac Koenig ALP [Catalytic activity/Vol] 153 U/L Critically high 46 -116 [facility] Comment on above: Performed By: #### T 4 #### [facility] [address] [place] [address] Dr. Mac Koenig ALT [Catalytic activity/Vol] 63 U/L Critically high 14 -59 [facility] Comment on above: Performed By: #### T 4 #### [facility] [address] [place] [address] Dr. Mac Koenig Anion gap [Moles/Vol] 7.0 mmol/L Normal [facility] Comment on above: Performed By: #### T 4 #### [facility] [address] [place] [address] Dr. Mac Koenig AST [Catalytic activity/Vol] 44 U/L Critically high 15 -37 [facility] Comment on above: Performed By: #### T 4 #### [facility] [address] [place] [address] Dr. Mac Koenig Bilirubin [Mass/Vol] 0.6 mg/dL Normal 0.2-1.0 [facility] Comment on above: Performed By: #### T 4 #### [facility] [address] [place] [address] Dr. Mac Koenig Calcium [Mass/Vol] 8.7 mg/dL Normal 8.5-10.1 [facility] Comment on above: Performed By: #### T 4 #### [facility] [address] [place] [address] Dr. Mac Koenig Chloride [Moles/Vol] 104 mmol/L Normal 98-107 [facility] Comment on above: Performed By: #### T 4 #### [facility] [address] [place] [address] Dr. Mac Koenig CO2 [Moles/Vol] 25.4 mmol/L Normal 21.0-32.0 [facility] Comment on above: Performed By: #### T 4 #### [facility] [address] [place] [address] Dr. Mac Koenig Creatinine [Mass/Vol] 0.74 mg/dL Normal 0.55-1.02 [facility] Comment on above: Performed By: #### T 4 #### [facility] [address] [place] [address] Dr. Mac Koenig EGFR-AF MALAYSIAN >60 Normal >=60 [facility] Comment on above: Performed By: #### T 4 #### [facility] [address] [place] [address] Dr. Mac Koenig EGFR-NON AF MALAYSIAN >60 Normal >=60 [facility] Comment on above: Performed By: #### T 4 #### [facility] [address] [place] [address] Dr. Mac Koenig Globulin (S) [Mass/Vol] 3.5 g/dL Normal T [facility] Comment on above: Performed By: #### T 4 #### [facility] [address] [place] [address] Dr. Mac Koenig Glucose [Mass/Vol] 80 mg/dL Normal 74-106 [facility] Comment on above: Performed By: #### T 4 #### [facility] [address] [place] [address] Dr. Mac Koenig Potassium [Moles/Vol] 3.4 mmol/L Critically low 3.5-5.1 [facility] Comment on above: Performed By: #### T 4 #### [facility] [address] [place] [address] Dr. Mac Koenig Protein [Mass/Vol] 5.4 g/dL Critically low 6.4-8.2 [facility] Comment on above: Performed By: #### T 4 #### [facility] [address] [place] [address] Dr. Mac Koenig Sodium [Moles/Vol] 133 mmol/L Critically low 136-145 Th [facility] Comment on above: Performed By: #### T 4 #### [facility] [address] [place] [address] Dr. Mac Koenig Urea nitrogen [Mass/Vol] 12.0 mg/dL Normal 7.0-18.0 [facility] Comment on above: Performed By: #### T 4 #### [facility] [address] [place] [address] Dr. Mac Koenig Urea nitrogen/Creatinine [Mass ratio] 16.2 mg/mg Normal [facility] Comment on above: Performed By: #### T 4 #### [facility] [address] [place] [address] Dr. Mac Koenig CBC AUTO DIFFon 07-24-2022 BASO # 0.1 103/ul Normal 0.0-0.1 [facility] Comment on above: Performed By: #### T 4 #### [facility] [address] [place] [address] Dr. Mac Koenig Basophils/100 WBC (Bld) 0.6 % Normal 0.2-2.0 [facility] Comment on above: Performed By: #### T 4 #### [facility] [address] [place] [address] Dr. Mac Koenig EO # 0.0 103/ul Normal 0.0-0.7 [facility] Comment on above: Performed By: #### T 4 #### [facility] [address] [place] [address] Dr. Mac Koenig Eosinophils/100 WBC (Bld) 0.1 % Critically low 0.9-7. 0 [facility] Comment on above: Performed By: #### T 4 #### [facility] [address] [place] [address] Dr. Mac Koenig Erythrocyte distribution wid th (RBC) [Ratio] 13.6 % Normal 11.0-15.0 [facility] Comment on above: Performed By: #### T 4 #### [facility] [address] [place] [address] Dr. Mac Koenig Hematocrit (Bld) [Volume fraction] 34.6 % Critically low 36.0-48.0 [facility] Comment on above: Performed By: #### T 4 #### [facility] [address] [place] [address] Dr. Mac Koenig Hemoglobin (Bld) [Mass/Vol] 11.7 g/dL Critically low 12.0 -16.0 [facility] Comment on above: Performed By: #### T 4 #### [facility] [address] [place] [address] Dr. Mac Koenig IG # 0.04 10e3/ul Critically high 0.00-0.03 [facility] Comment on above: Performed By: #### T 4 #### [facility] [address] [place] [address] Dr. Mac Koenig IG % 0.4 % Normal 0.0-0.5 [facility] Comment on above: Performed By: #### T 4 #### [facility] [address] [place] [address] Dr. Mac Koenig LYMPH # 1.1 103/ul Critically low 1.2-3.8 [facility] Comment on above: Performed By: #### T 4 #### [facility] [address] [place] [address] Dr. Mac Koenig Lymphocytes/100 WBC (Bld) 10.1 % Critically low 20.5-6 0.0 [facility] Comment on above: Performed By: #### T 4 #### [facility] [address] [place] [address] Dr. Mac Koenig MANUAL DIFF REQ NO Normal [facility] Comment on above: Performed By: #### T 4 #### [facility] [address] [address] [address] Mac Koenig MCH (RBC) [Entitic mass] 36.7 pg Critically high 26.7-3 4.0 [facility] Comment on above: Performed By: #### T 4 #### [facility] [address] [place] [address] Dr. Mac Koenig MCHC (RBC) [Mass/Vol] 33.8 g/dL Normal 29.9-35.2 [facility] Comment on above: Performed By: #### T 4 #### [facility] [address] [address] [address] Mac Koenig MCV (RBC) [Entitic vol] 108.5 fL Critically high 81.0-99 .0 [facility] Comment on above: Performed By: #### T 4 #### [facility] [address] [place] [address] Dr. Mac Koenig MONO # 0.7 103/ul Normal 0.3-0.8 [facility] Comment on above: Performed By: #### T 4 #### [facility] [address] [place] [address] Dr. Mac Koenig Monocytes/100 WBC (Bld) 6.5 % Normal 1.7-12.0 [facility] Comment on above: Performed By: #### T 4 #### [facility] [address] [place] [address] Dr. Mac Koenig NEUT # 8.6 103/ul Critically high 1.4-6.5 [facility] Comment on above: Performed By: #### T 4 #### [facility] [address] [place] [address] Dr. Mac Koenig Neutrophils/100 WBC (Bld) 82.3 % Critically high 43.0- 75.[address] [facility] Comment on above: Performed By: #### T 4 #### [facility] [address] [place] [address] Dr. Mac Koenig Platelet mean volume (Bld) [ Entitic vol] 12.7 fL Normal 9.5-13.5 [facility] Comment on above: Performed By: #### T 4 #### [facility] [address] [place] [address] Dr. Mac Koenig PLT 204 103/ul Normal 150-450 [facility] Comment on above: Performed By: #### T 4 #### [facility] [address] [place] [address] Dr. Mac Koenig RBC 3.19 106/ul Critically low 4.20-5.40 [facility] Comment on above: Performed By: #### T 4 #### [facility] [address] [place] [address] Dr. Mac Koenig WBC 10.4 103/ul Normal 4.0-11.0 [facility] Comment on above: Performed By: #### T 4 #### [facility] [address] [place] [address] Dr. Mac Koenig FREE T3on 07-24-2022 FREE T3 1.50 pg/mlL Critically low 2.18-3.98 [facility] Comment on above: Performed By: #### C BC #### [facility] [address] [place] [address] Dr. Mac Koenig PROF 14(COMP METB)on 022 Albumin [Mass/Vol] 2.4 g/dL Critically low 3.4-5.0 [facility] Comment on above: Performed By: #### T 4 #### [facility] [address] [place] [address] Dr. Mac Koenig Albumin/Globulin [Mass ratio] 0.7 {ratio} Normal [facility] Comment on above: Performed By: #### T 4 #### [facility] [address] [place] [address] Dr. Mac Koenig ALP [Catalytic activity/Vol] 195 U/L Critically high 46 -116 [facility] Comment on above: Performed By: #### T 4 #### [facility] [address] [place] [address] Dr. Mac Koenig ALT [Catalytic activity/Vol] 97 U/L Critically high 14 -59 [facility] Comment on above: Performed By: #### T 4 #### [facility] [address] [place] [address] Dr. Mac Koenig Anion gap [Moles/Vol] 6.2 mmol/L Normal [facility] Comment on above: Performed By: #### T 4 #### [facility] [address] [address] [address] Mac Koenig AST [Catalytic activity/Vol] 93 U/L Critically high 15 -37 [facility] Comment on above: Performed By: #### T 4 #### [facility] [address] [address] [address] Mac Koenig Bilirubin [Mass/Vol] 1.2 mg/dL Critically high 0.2-1.0 [facility] Comment on above: Performed By: #### T 4 #### [facility] [address] [place] [address] Dr. Mac Koenig Calcium [Mass/Vol] 8.7 mg/dL Normal 8.5-10.1 [facility] Comment on above: Performed By: #### T 4 #### [facility] [address] [place] [address] Dr. Mac Koenig Chloride [Moles/Vol] 100 mmol/L Normal 98-107 [facility] Comment on above: Performed By: #### T 4 #### [facility] [address] [place] [address] Dr. Mac Koenig CO2 [Moles/Vol] 31.4 mmol/L Normal 21.0-32.0 [facility] Comment on above: Performed By: #### T 4 #### [facility] [address] [place] [address] Dr. Mac Koenig Creatinine [Mass/Vol] 0.72 mg/dL Normal 0.55-1.02 [facility] Comment on above: Performed By: #### T 4 #### [facility] [address] [place] [address] Dr. Mac Koenig EGFR-AF MALAYSIAN >60 Normal >=60 [facility] Comment on above: Performed By: #### T 4 #### [facility] [address] [place] [address] Dr. Mac Koenig EGFR-NON AF MALAYSIAN >60 Normal >=60 [facility] Comment on above: Performed By: #### T 4 #### [facility] [address] [place] [address] Dr. Mac Koenig Globulin (S) [Mass/Vol] 3.5 g/dL Normal T [facility] Comment on above: Performed By: #### T 4 #### [facility] [address] [address] [address] Mac Koenig Glucose [Mass/Vol] 94 mg/dL Normal 74-106 [facility] Comment on above: Performed By: #### T 4 #### [facility] [address] [place] [address] Dr. Mac Koenig Potassium [Moles/Vol] 3.6 mmol/L Normal 3.5-5.1 [facility] Comment on above: Performed By: #### T 4 #### [facility] [address] [place] [address] Dr. Mac Koenig Protein [Mass/Vol] 5.9 g/dL Critically low 6.4-8.2 [facility] Comment on above: Performed By: #### T 4 #### [facility] [address] [place] [address] Dr. Mac Koenig Sodium [Moles/Vol] 134 mmol/L Critically low 136-145 [facility] Comment on above: Performed By: #### T 4 #### [facility] [address] [place] [address] Dr. Mac Koenig Urea nitrogen [Mass/Vol] 8.0 mg/dL Normal 7.0-18.0 [facility] Comment on above: Performed By: #### T 4 #### [facility] [address] [place] [address] Dr. Mac Koenig Urea nitrogen/Creatinine [Mass ratio] 11.1 mg/mg Normal [facility] Comment on above: Performed By: #### T 4 #### [facility] [address] [place] [address] Dr. Mac Koenig T4on 07-24-2022 T4 [Mass/Vol] 11.00 ug/dL Normal 4.80-13.90 [facility] Comment on above: Performed By: #### T 4 #### [facility] [address] [place] [address] Dr. Mac Koenig TSHon 07-24-2022 TSH 0.596 uIU/mL Normal 0.358-3.740 [facility] Comment on above: Performed By: #### C BC #### [facility] [address] [place] [address] ABD/PELV W CONon 07-23-[address] ABD/PELV W CON EXAM: CT ABDOMEN PEL VIS WITH IV CONTRAST HISTORY: cardiac arrhythmia, chest pain COMPARISON: None. TECHNIQUE: Axial CT images were obtained through the abdomen and pelvis with IV contrast. Coronal and sagittal reformats were obtained. Dose reduction techniques were achieved by using automated exposure control and/or adjustment of mA and/or kV according to patient size and/or use of iterative reconstruction technique. FINDINGS: Motion limited exam. Lower thorax: A chest CT performed will be reported separately. Liver: Unremarkable as seen. Biliary: The gallbladder is grossly unremarkable. No abnormal biliary dilatation seen. Spleen: Unremarkable. Pancreas: Unremarkable. Adrenals: Unremarkable. Kidneys and bladder: Unremarkable. GI Tract: No gross evidence of obstruction. Mild/moderate stool in the colon. The appendix is not readily visualized. Lymph Nodes: No lymphadenopathy. Mesentery/peritoneum: No free fluid or free air. Retroperitoneum: No mass or fluid collection. Vasculature: Atherosclerotic disease of the aorta and branches without evidence of AAA. Pelvis: No mass visible. Uterus is likely absent. Bones/Soft Tissues: No clearly acute bony abnormalities. Mild degenerative changes. No significant soft tissue abnormality. IMPRESSION: No acute abnormality demonstrated, given the significant constraints of patient motion. Electronically authenticated by: TISH JURADO Date: 2022-07-23 05:08 Normal Th [facility] CTA CHEST WO W CONon 022 CTA CHEST WO W CON EXAMINATION: CTA KELVIN ST WO W CON, 07/23/2022 1:39 AM EDT HISTORY: cardiac arrhythmia COMPARISON: Same day chest x-ray. TECHNIQUE: CT angiography of the chest was performed with IV contrast. MIP (maximum intensity projection) images or 3D post processing was performed. CT dose reduction technique was used, including Automated Exposure Control. FINDINGS: Motion limited exam. PULMONARY ARTERIES: There is good opacification of the pulmonary vasculature. No abnormal vascular cut-offs or filing defects identified to suggest presence of pulmonary emboli. Pulmonary trunk measures 2 CM. AORTA: Thoracic aorta is normal in course and caliber. Moderate atherosclerotic calcifications are seen. MEDIASTINUM: Left thyroid lobe could be enlarged, assessment is limited by motion. Trachea and central airways are grossly patent as seen. Heart appears upper normal in size. Mild/moderate coronary arterial calcifications. No significant pericardial effusion. No visible mediastinal or hilar lymphadenopathy. PLEURAL CAVITY: No pneumothorax. No pleural effusion. LUNGS: Mild dependent atelectasis. Lungs are otherwise grossly clear. CHEST WALL/AXILLA: No visible axillary lymphadenopathy VISUALIZED UPPER ABDOMEN: Please refer to separate CT abdomen report. BONES: No visualized acute abnormality or destructive bone lesion, given exam limitations. Mild degenerative changes. IMPRESSION: Limited study shows no evidence of pulmonary embolus. Electronically authenticated by: TISH JURADO Date: 2022-07-23 05:01 Normal [facility] ER URINE PROFILEon 2 Bilirubin Ql (U) Negative Normal NEGATIVE [facility] Comment on above: Performed By: #### T 4 #### [facility] [address] [place] [address] Dr. Mac Koenig Clarity (U) CLEAR Normal CLEAR [facility] Comment on above: Performed By: #### T 4 #### [facility] [address] [place] [address] Dr. Mac Koenig Color (U) LT. YELLOW Normal YELLOW [facility] Comment on above: Performed By: #### T 4 #### [facility] [address] [place] [address] Dr. Mac Koenig ERUAHD A micrscopic examina tion will be performed if indicated. Normal [facility] Comment on above: Performed By: #### T 4 #### [facility] [address] [place] [address] Dr. Mac Koenig Glucose Ql (U) Negative Normal NEGATIVE [facility] Comment on above: Performed By: #### T 4 #### [facility] [address] [place] [address] Dr. Mac Koenig Hemoglobin Ql (U) Negative Normal NEGATIVE [facility] Comment on above: Performed By: #### T 4 #### [facility] [address] [place] [address] Dr. Mac Koenig Ketones Ql (U) Negative Normal NEGATIVE [facility] Comment on above: Performed By: #### T 4 #### [facility] [address] [place] [address] Dr. Mac Koenig LEUKOCYTES Negative Normal NEGATIVE [facility] Comment on above: Performed By: #### T 4 #### [facility] [address] [place] [address] Dr. Mac Koenig Nitrite Ql (U) Negative Normal NEGATIVE [facility] Comment on above: Performed By: #### T 4 #### [facility] [address] [place] [address] Dr. Mac Koenig pH (U) 6.0 [pH] Normal 5-9 [facility] Comment on above: Performed By: #### T 4 #### [facility] [address] [place] [address] Dr. Mac Koenig SPEC GRAVITY <=1.005 Abnormal 1.005-<=1.025 [facility] Comment on above: Performed By: #### T 4 #### [facility] [address] [place] [address] Dr. Mac Koenig UA PROTEIN Negative Normal NEGATIVE/ TRACE [facility] Comment on above: Performed By: #### T 4 #### [facility] [address] [place] [address] Dr. Mac Koenig UR MICRO IND NOT INDICATED Normal [facility] Comment on above: Performed By: #### T 4 #### [facility] [address] [place] [address] Dr. Mac Koenig Urobilinogen Qn (U) 1.0 {Jd'U}/dL Normal 0.2 - 1. 0 [facility] Comment on above: Performed By: #### T 4 #### [facility] [address] [place] [address] Dr. Mac Koenig LACTATE/LACTIC ACIDon 2021 Lactate [Moles/Vol] 3.1 mmol/L Critically high 0.4-1.9 [facility] Comment on above: Performed By: #### L ACT #### [facility] [address] [place] [address] Dr. Mac Koenig Lactate [Moles/Vol] 3.7 mmol/L Critically high 0.4-1.9 [facility] Comment on above: Performed By: #### T 4 #### [facility] [address] [place] [address] Dr. Mac Koenig Lactate [Moles/Vol] 4.1 mmol/L Critically high 0.4-1.9 [facility] Comment on above: Performed By: #### L ACT #### [facility] [address] [place] [address] Dr. Mac Koenig PROF CHEM 8 (BAS METB)on Anion gap [Moles/Vol] 9.0 mmol/L Normal [facility] Comment on above: Performed By: #### T 4 #### [facility] [address] [place] [address] Dr. Mac Koenig Calcium [Mass/Vol] 8.9 mg/dL Normal 8.5-10.1 [facility] Comment on above: Performed By: #### T 4 #### [facility] [address] [place] [address] Dr. Mac Koenig Chloride [Moles/Vol] 101 mmol/L Normal 98-[address] [facility] Comment on above: Performed By: #### T 4 #### [facility] [address] [place] [address] Dr. Mac Koenig CO2 [Moles/Vol] 30.0 mmol/L Normal 21.0-32.0 [facility] Comment on above: Performed By: #### T 4 #### [facility] [address] [place] [address] Dr. Mac Koenig Creatinine [Mass/Vol] 0.74 mg/dL Normal 0.55-1.02 [facility] Comment on above: Performed By: #### T 4 #### [facility] [address] [place] [address] Dr. Mac Koenig EGFR-AF MALAYSIAN >60 Normal >=60 [facility] Comment on above: Performed By: #### T 4 #### [facility] [address] [address] [address] Mac Koenig EGFR-NON AF MALAYSIAN >60 Normal >=60 [facility] Comment on above: Performed By: #### T 4 #### [facility] [address] [address] [address] Mac Koenig Glucose [Mass/Vol] 133 mg/dL Critically high 74-106 [facility] Comment on above: Performed By: #### T 4 #### [facility] [address] [place] [address] Dr. Mac Koenig Potassium [Moles/Vol] 3.0 mmol/L Critically low 3.5-5.1 [facility] Comment on above: Performed By: #### T 4 #### [facility] [address] [address] [address] Mac Koenig Sodium [Moles/Vol] 137 mmol/L Normal 136-145 [facility] Comment on above: Performed By: #### T 4 #### [facility] [address] [place] [address] Dr. Mac Koenig Urea nitrogen [Mass/Vol] 8.0 mg/dL Normal 7.0-18.0 [facility] Comment on above: Performed By: #### T 4 #### [facility] [address] [place] [address] Dr. Mac Koenig Urea nitrogen/Creatinine [Mass ratio] 10.8 mg/mg Normal [facility] Comment on above: Performed By: #### T 4 #### [facility] [address] [place] [address] Dr. Mac Koenig TROPONIN, HIGH SENSITIVITYon 07-23-2022 HSTROP 26.8 pg/mL Normal 4.0-51.3 [facility] Comment on above: Result Comment: CUT- OFF POINTS HAVE BEEN ESTABLISHED BASED ON THE FOURTH UNIVERSAL DEFINITIONS OF MYOCARDIAL INFARCTION. THE UPPER REFERENCE LIMIT (URL) OF TROPONIN, DEFINED THE 99TH PERCENTILE OF cTnI DISTRIBUTION IN A REFERENCE POPULATION, HAS BEEN CONFIRMED THE DECISION THRESHOLD FOR HI DIAGNOSIS. Performed By: #### H STROPN #### [facility] [address] [place] [address] Dr. Mac Koenig HSTROP 12.0 pg/mL Normal 4.0-51.3 [facility] Comment on above: Result Comment: CUT- OFF POINTS HAVE BEEN ESTABLISHED BASED ON THE FOURTH UNIVERSAL DEFINITIONS OF MYOCARDIAL INFARCTION. THE UPPER REFERENCE LIMIT (URL) OF TROPONIN, DEFINED THE 99TH PERCENTILE OF cTnI DISTRIBUTION IN A REFERENCE POPULATION, HAS BEEN CONFIRMED THE DECISION THRESHOLD FOR HI DIAGNOSIS. Performed By: #### T 4 #### [facility] [address] [place] [address] Dr. Mac Koenig BNPon 07-22-2022 Natriuretic peptide B (Bld) [Mass/Vol] 347.0 pg/mL Normal <=1,800.0 [facility] Comment on above: Performed By: #### L ACT #### [facility] [address] [place] [address] Dr. Mac Koenig CBC AUTO DIFFon 07-22-2022 BASO # 0.1 103/ul Normal 0.0-0.1 [facility] Comment on above: Performed By: #### T 4 #### [facility] [address] [place] [address] Dr. Mac Koenig Basophils/100 WBC (Bld) 0.7 % Normal 0.2-2.0 [facility] Comment on above: Performed By: #### T 4 #### [facility] [address] [place] [address] Dr. Mac Koenig EO # 0.1 103/ul Normal 0.0-0.7 [facility] Comment on above: Performed By: #### T 4 #### [facility] [address] [place] [address] Dr. Mac Koenig Eosinophils/100 WBC (Bld) 1.7 % Normal 0.9-7.0 [facility] Comment on above: Performed By: #### T 4 #### [facility] [address] [place] [address] Dr. Mac Koenig Erythrocyte distribution wid th (RBC) [Ratio] 13.2 % Normal 11.0-15.0 [facility] Comment [facility] above: Performed By: #### T 4 #### [facility] [address] [place] [address] Dr. Mac Koenig Hematocrit (Bld) [Volume fraction] 37.7 % Normal 3 6.0-48.[address] [facility] Comment on above: Performed By: #### T 4 #### [facility] [address] [place] [address] Dr. Mac Koenig Hemoglobin (Bld) [Mass/Vol] 12.6 g/dL Normal 12.0-16. 0 [facility] Comment on above: Performed By: #### T 4 #### [facility] [address] [place] [address] Dr. Mac Koenig IG # 0.03 10e3/ul Normal 0.00-0.03 [facility] Comment on above: Performed By: #### T 4 #### [facility] [address] [place] [address] Dr. Mac Koenig IG % 0.4 % Normal 0.0-0.5 [facility] Comment on above: Performed By: #### T 4 #### [facility] [address] [place] [address] Dr. Mac Koenig LYMPH # 2.6 103/ul Normal 1.2-3.8 [facility] Comment on above: Performed By: #### T 4 #### [facility] [address] [place] [address] Dr. Mac Koenig Lymphocytes/100 WBC (Bld) 31.2 % Normal 20.5-60.0 [facility] Comment on above: Performed By: #### T 4 #### [facility] [address] [place] [address] Dr. Mac Koenig MANUAL DIFF REQ NO Normal [facility] Comment on above: Performed By: #### T 4 #### [facility] [address] [place] [address] Dr. Mac Koenig MCH (RBC) [Entitic mass] 36.5 pg Critically high 26.7-3 4.0 [facility] Comment on above: Performed By: #### T 4 #### [facility] [address] [place] [address] Dr. Mac Koenig MCHC (RBC) [Mass/Vol] 33.4 g/dL Normal 29.9-35.2 [facility] Comment on above: Performed By: #### T 4 #### [facility] [address] [place] [address] Dr. Mac Koenig MCV (RBC) [Entitic vol] 109.3 fL Critically high 81.0-99 .0 [facility] Comment on above: Performed By: #### T 4 #### [facility] [address] [place] [address] Dr. Mac Koenig MONO # 0.5 103/ul Normal 0.3-0.8 [facility] Comment on above: Performed By: #### T 4 #### [facility] [address] [place] [address] Dr. Mac Koenig Monocytes/100 WBC (Bld) 5.5 % Normal 1.7-12.0 [facility] Comment on above: Performed By: #### T 4 #### [facility] [address] [place] [address] Dr. Mac Koenig NEUT # 5.1 103/ul Normal 1.4-6.5 [facility] Comment on above: Performed By: #### T 4 #### [facility] [address] [place] [address] Dr. Mac Koenig Neutrophils/100 WBC (Bld) 60.5 % Normal 43.0-75.0 [facility] Comment on above: Performed By: #### T 4 #### [facility] [address] [place] [address] Dr. Mac Koenig Platelet mean volume (Bld) [ Entitic vol] 12.5 fL Normal 9.5-13.5 [facility] Comment on above: Performed By: #### T 4 #### [facility] [address] [place] [address] Dr. Mac Koenig PLT 309 103/ul Normal 150-450 [facility] Comment on above: Performed By: #### T 4 #### [facility] [address] [address] [address] Mac Koenig RBC 3.45 106/ul Critically low 4.20-5.40 [facility] Comment on above: Performed By: #### T 4 #### [facility] [address] [place] [address] Dr. Mca Koenig WBC 8.4 103/ul Normal 4.0-11.0 [facility] Comment on above: Performed By: #### T 4 #### [facility] [address] [place] [address] HEAD WO CONon 07-22-2022 CT HEAD WO CON Study: CT HEAD WO CO N HISTORY: DISORIENTATION, UNSPECIFIED Technique: CT images of the head were acquired without intravenous contrast. Dose reduction technique used: Automatic exposure control and/or adjustment of the mA and/or kV according to patient size and/or use of degenerative reconstruction technique. Comparisons: None. Findings: BRAIN PARENCHYMA: No acute hemorrhage. No mass effect or herniation. Periventricular and deep white matter patchy hypoattenuation favors chronic microangiopathic changes. Generalized parenchymal volume loss is associated with ex vacuo prominence of the ventricles and CSF spaces.The sellar contents appear normal. VENTRICLE/EXTRA-AXIAL SPACES: No extra-axial fluid collections. EXTRACRANIAL STRUCTURES: No destructive osseous lesion. Normal soft tissues. Mastoids are clear. ORBITS: [place] lenses are surgically absent. PARANASAL SINUSES: Normal. IMPRESSION: 1. No acute intracranial abnormality. 2. 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 Electronically authenticated by: BERE FONTENOT Date: 2022-07-22 21:39 Normal [facility] Covid-19 PCR (CVDTBH)on SARS-CoV-2 (COVID-19) RNA CHIQUITA+probe Ql (Unsp spec) Not detected Normal NOT DETECTED [facility] Comment on above: Result Comment: When diagnostic testing is negative, the possibility of a false negative should be considered in the context of a patient's recent exposures and the presence of clinical signs and symptoms consistent with SARS-CoV-2. This test is not yet approved or cleared by the [place] FDA. When there are no FDA-approved or cleared tests available, and other criteria are met, FDA can make tests available under an emergency access mechanism called an Emergency Use Authorization (EUA). The EUA for this test is supported by the [employer] of Health and Human Service's declaration that circumstances exist to justify the emergency use of in vitro diagnostics for the detection and/or diagnosis of the virus that causes COVID-19. This EUA will remain in effect for the duration of the COVID-19 declaration justifying emergency of IVDs, unless it is terminated or revoked by the FDA (after which the test may no longer be used). Performed By: #### L ACT #### [facility] [address] [place] [address] Dr. Mac Koenig D-DIMERon 07-22-2022 D-DIMER 1.76 mg/L FEU Critically high <=0.59 [facility] Comment on above: Performed By: #### D DIM #### [facility] [address] [place] [address] Dr. Mac Koenig D-DIMER COMMENTS SEE BELOW Normal [facility] Comment on above: Result Comment: Incr eases in D-Dimer concentration observed with thromboembolic events can be variable due to localization, size, and age of the thrombus. Therefore, a thromboembolic event cannot be diagnosed with certainty on the basis of the reference range. D-Dimers may also be elevated for a variety of disorders including: advanced age, , coronary disease, cancer, liver disease, infection, inflammation, hematoma, DIC, trauma, post-surgery, diabetes, thrombolytic or anticoagulant therapy, stress, and generalized hospitalization. Performed By: #### D DIM #### [facility] [address] [place] [address] Dr. Mac Koenig LACTATE/LACTIC ACIDon 2021 Lactate [Moles/Vol] 1.4 mmol/L Normal 0.4-1.9 [facility] Comment on above: Performed By: #### L ACT #### [facility] [address] [place] [address] Dr. Mac Koenig PROF 14(COMP METB)on 022 Albumin [Mass/Vol] 2.8 g/dL Critically low 3.4-5.0 Th [facility] Comment on above: Performed By: #### L ACT #### [facility] [address] [place] [address] Dr. Mac Koenig Albumin/Globulin [Mass ratio] 0.8 {ratio} Normal [facility] Comment on above: Performed By: #### L ACT #### [facility] [address] [place] [address] Dr. Mac Koenig ALP [Catalytic activity/Vol] 120 U/L Critically high 46 -116 [facility] Comment on above: Performed By: #### L ACT #### [facility] [address] [place] [address] Dr. Mac Koenig ALT [Catalytic activity/Vol] 41 U/L Normal 14-59 [facility] Comment on above: Performed By: #### L ACT #### [facility] [address] [place] [address] Dr. Mac Koenig Anion gap [Moles/Vol] 6.2 mmol/L Normal [facility] Comment on above: Performed By: #### L ACT #### [facility] [address] [place] [address] Dr. Mac Koenig AST [Catalytic activity/Vol] 85 U/L Critically high 15 -37 [facility] Comment on above: Performed By: #### L ACT #### [facility] [address] [place] [address] Dr. Mac Koenig Bilirubin [Mass/Vol] 0.8 mg/dL Normal 0.2-1.0 [facility] Comment on above: Performed By: #### L ACT #### [facility] [address] [place] [address] Dr. Mac Koenig Calcium [Mass/Vol] 8.8 mg/dL Normal 8.5-10.1 [facility] Comment on above: Performed By: #### L ACT #### [facility] [address] [place] [address] Dr. Mac Koenig Chloride [Moles/Vol] 99 mmol/L Normal 98-107 [facility] Comment on above: Performed By: #### L ACT #### [facility] [address] [place] [address] Dr. Mac Koenig CO2 [Moles/Vol] 32.3 mmol/L Critically high 21.0-32.0 [facility] Comment on above: Performed By: #### L ACT #### [facility] [address] [place] [address] Dr. Mac Koenig Creatinine [Mass/Vol] 0.68 mg/dL Normal 0.55-1.02 [facility] Comment on above: Performed By: #### L ACT #### [facility] [address] [place] [address] Dr. Mac Koenig EGFR-AF MALAYSIAN >60 Normal >=60 [facility] Comment on above: Performed By: #### L ACT #### [facility] [address] [place] [address] Dr. Mac Koenig EGFR-NON AF MALAYSIAN >60 Normal >=60 [facility] Comment on above: Performed By: #### L ACT #### [facility] [address] [place] [address] Dr. Mac Koenig Globulin (S) [Mass/Vol] 3.6 g/dL Normal [facility] Comment on above: Performed By: #### L ACT #### [facility] [address] [place] [address] Dr. Mac Koenig Glucose [Mass/Vol] 118 mg/dL Critically high 74-106 [facility] Comment on above: Performed By: #### L ACT #### [facility] [address] [place] [address] Dr. Mac Koenig Potassium [Moles/Vol] 2.5 mmol/L Critically low 3.5-5.1 [facility] Comment on above: Performed By: #### L ACT #### [facility] [address] [place], [place] [address] Dr. Mac Koenig Protein [Mass/Vol] 6.4 g/dL Normal 6.4-8.2 [facility] Comment on above: Performed By: #### L ACT #### [facility] [address] [place], [place] [address] Dr. Mac Koenig Sodium [Moles/Vol] 133 mmol/L Critically low 136-145 Th [facility] Comment on above: Performed By: #### L ACT #### [facility] [address] [address] [address] Mac Koenig Urea nitrogen [Mass/Vol] 9.0 mg/dL Normal 7.0-18.0 [facility] Comment on above: Performed By: #### L ACT #### [facility] [address] [place] [address] [address] Mac Koenig Urea nitrogen/Creatinine [Mass ratio] 13.2 mg/mg Normal [facility] Comment on above: Performed By: #### L ACT #### [facility] [address] [place] [address] [address] Mac Koenig TROPONIN, HIGH SENSITIVITYon 07-22-2022 HSTROP 12.3 pg/mL Normal 4.0-51.3 [facility] Comment on above: Result Comment: CUT- OFF POINTS HAVE BEEN ESTABLISHED BASED ON THE FOURTH UNIVERSAL DEFINITIONS OF MYOCARDIAL INFARCTION. THE UPPER REFERENCE LIMIT (URL) OF TROPONIN, DEFINED THE 99TH PERCENTILE OF cTnI DISTRIBUTION IN A REFERENCE POPULATION, HAS BEEN CONFIRMED THE DECISION THRESHOLD FOR HI DIAGNOSIS. Performed By: #### L ACT #### [facility] [address] [place] [address] [address] Mac Koenig XR CHEST 1 Von 07-22-2022 XR CHEST 1 V EXAMINATION: XR CHES T 1 V HISTORY: Shortness of breath COMPARISON: Chest x-ray 08/30/2021 TECHNIQUE: Portable chest FINDINGS: The lung parenchyma is free of consolidation or infiltrate. No pneumothorax or pleural effusion. The cardiac, mediastinal and hilar contours are normal. The visualized osseous structures exhibit no gross abnormality. IMPRESSION: No acute cardiopulmonary abnormality. Electronically authenticated by: PAPA COMER Date: 2022-07-22 21:15 Normal [facility] Encounters Encounter Date Encounter Type Care Provider Facility Start: 01-28-2023 End: 01-28-[address] ROSE DIAZ Facility:[facility] Start: 08-09-2022 End: 08-10-[address] ROSE DIAZ Facility:[facility] Start: 07-23-2022 End: 07-26-[address] ROSE DIAZ Facility:[facility] Payers Date Payer Category Payer Medicaid [id number] 1958 Medicare [id number] 1945 Unknown [id number] 1945 Unknown [id number] 1945 Unknown [id number] Summary Purpose Family History No Family History Records Found Advance Directives No Advanced Directives Records Found Additional Source Comments INFORMATION SOURCE (unrecogn ized section and content) DATE CREATED AUTHOR 02/01/2023 [facility] FOR RECORDS PERTAINING TO PATIENTS WHO ARE OR HAVE BEEN ENROLLED IN A CHEMICAL DEPENDENCY/SUBSTANCEABUSE PROGRAM, SOME INFORMATION MAY BE OMITTED. This clinical summary was aggregated from multiple sources. Caution should be exercised in using it in the provision of clinical care. This summary normalizes information from multiple sources, and as a consequence, information in this document may materially change the coding, format and clinical context of patient data. In addition, data may be omitted in some cases. CLINICAL DECISIONS SHOULD BE BASED ON THE PRIMARY CLINICAL RECORDS. [employer] provides no warranty or guarantee of the accuracy or completeness of information in this document.
== END 2023-08-05 04:23 | disposition home or self-care (01) ==
LOC: LAB 04:22
PROVIDERS: PCP Family Medicine; Visit Provider Family Medicine
DX: M54.9 Dorsalgia, unspecified (principal)
CPT/HCPCS: 36415; 80048; 85025

== ENCOUNTER 2023-08-08 08:42 | Outpatient (REF) | payer MEDICARE, MEDICAID, SELFPAY ==
[2023-08-08 09:33] LABS: Bilirubin Urine NEGATIVE (NEGATIVE); Blood Urine NEGATIVE (NEGATIVE); Clarity Urine CLEAR (CLEAR); Color Urine YELLOW (YELLOW); Glucose Urine UA NEGATIVE (NEGATIVE); Ketones Urine NEGATIVE (NEGATIVE); Leukocyte Esterase Urine NEGATIVE (NEGATIVE); Nitrite Urine NEGATIVE (NEGATIVE); Protein Urine NEGATIVE (NEG/TRACE); Specific Gravity Urine >=1.030 (1.005-1.025); Urine Microscopic Indicated NO; Urobilinogen Urine 0.2 EU/dL (0.2-1.0)
== END 2023-08-08 08:43 | disposition home or self-care (01) ==
LOC: LAB 08:42
PROVIDERS: PCP Family Medicine; Visit Provider Family Medicine
DX: R41.0 Disorientation, unspecified (principal); R35.0 Frequency of micturition; R30.0 Dysuria
CPT/HCPCS: 81003

== ENCOUNTER 2023-09-07 03:43 | Outpatient (REF) | payer MEDICARE, MEDICAID, SELFPAY ==
[2023-09-07 09:31] LABS: Basophils Absolute Auto 0.1 10^3/uL (0.0-0.1); Basophils Percent Auto 1.1 % (0.2-2.0); Eosinophils Absolute Auto 0.3 10^3/uL (0.0-0.7); Eosinophils Percent Auto 4.2 % (0.9-7.0); Hematocrit 39.2 % (36.0-48.0); Hemoglobin 12.5 g/dL (12.0-16.0); Immature Granulocytes Abs Auto 0.02 10^3/uL (0.00-0.03); Immature Granulocytes Pct Auto 0.3 % (0.0-0.5); Lymphocytes Percent Auto 39.7 % (20.5-60.0); Mean Corpuscular HGB Conc 31.9 g/dL (29.9-35.2); Mean Corpuscular Hemoglobin 36.5 pg (26.7-34.0); Mean Platelet Volume 12.4 fL (9.5-13.5); Monocytes Absolute Auto 0.5 10^3/uL (0.3-0.8); Monocytes Percent Auto 6.6 % (1.7-12.0); Neutrophils Absolute Auto 3.7 10^3/uL (1.4-6.5); Neutrophils Percent Auto 48.1 % (43.0-75.0); Platelet Count 240 10^3/uL (150-450); Red Blood Count 3.42 10^6/uL (4.20-5.40); Red Cell Distribution Width 13.6 % (11.0-15.0); White Blood Count 7.6 10^3/uL (4.0-11.0)
[2023-09-07 10:06] LABS: Anion Gap 11.4; BUN Creatinine Ratio 19.4; Calcium 9.2 mg/dL (8.5-10.1); Carbon Dioxide 29.4 mmol/L (21.0-32.0); Chloride 108 mmol/L (98-107); Estimated GFR (African America >60 (>=60); Estimated GFR (Non-African Ame >60 (>=60); Glucose 88 mg/dL (74-106); Potassium 3.8 mmol/L (3.5-5.1); Sodium 145 mmol/L (136-145)
[2023-09-07 10:33] LABS: Free T4 0.65 ng/dL (0.76-1.46)
[2023-09-07 11:29] LABS: Mean Corpuscular Volume 114.6 fL (81.0-99.0)
== END 2023-09-07 03:44 | disposition home or self-care (01) ==
LOC: LAB 03:43
PROVIDERS: PCP Family Medicine; Visit Provider Nurse Practitioner Family
DX: I25.119 Atherosclerotic heart disease of native coronary artery with unspecified angina pectoris (principal); J44.9 Chronic obstructive pulmonary disease, unspecified
CPT/HCPCS: 36415; 80048; 83880; 84439; 84443; 85025

== ENCOUNTER 2024-05-04 03:09 | Outpatient (RCR) | payer MEDICARE, MEDICAID, SELFPAY ==
[2024-05-04 10:04] LABS: Basophils Absolute Auto 0.1 10^3/uL (0.0-0.1); Basophils Percent Auto 0.6 % (0.2-2.0); Eosinophils Absolute Auto 0.1 10^3/uL (0.0-0.7); Eosinophils Percent Auto 0.6 % (0.9-7.0); Hematocrit 42.8 % (36.0-48.0); Hemoglobin 13.9 g/dL (12.0-16.0); Immature Granulocytes Abs Auto 0.03 10^3/uL (0.00-0.03); Immature Granulocytes Pct Auto 0.2 % (0.0-0.5); Lymphocytes Absolute Auto 4.1 10^3/uL (1.2-3.8); Lymphocytes Percent Auto 32.6 % (20.5-60.0); Mean Corpuscular HGB Conc 32.5 g/dL (29.9-35.2); Mean Corpuscular Hemoglobin 33.5 pg (26.7-34.0); Mean Corpuscular Volume 103.1 fL (81.0-99.0); Mean Platelet Volume 12.3 fL (9.5-13.5); Monocytes Absolute Auto 0.7 10^3/uL (0.3-0.8); Monocytes Percent Auto 5.9 % (1.7-12.0); Neutrophils Absolute Auto 7.5 10^3/uL (1.4-6.5); Neutrophils Percent Auto 60.1 % (43.0-75.0); Platelet Count 278 10^3/uL (150-450); Red Blood Count 4.15 10^6/uL (4.20-5.40); Red Cell Distribution Width 12.1 % (11.0-15.0); White Blood Count 12.5 10^3/uL (4.0-11.0)
[2024-05-04 10:49] LABS: Alanine Aminotransferase 21 U/L (14-59); Albumin Globulin Ratio 0.9; Albumin Level 3.3 g/dL (3.4-5.0); Alkaline Phosphatase 104 U/L (46-116); Anion Gap 10.3; Aspartate Amino Transferase 20 U/L (15-37); BUN Creatinine Ratio 13.6; Bilirubin Total 0.5 mg/dL (0.2-1.0); Calcium 9.8 mg/dL (8.5-10.1); Carbon Dioxide 30.6 mmol/L (21.0-32.0); Chloride 105 mmol/L (98-107); Estimated GFR (African America >60 (>=60); Estimated GFR (Non-African Ame >60 (>=60); Globulin 3.8 g/dL; Glucose 94 mg/dL (74-106); Potassium 3.9 mmol/L (3.5-5.1); Sodium 142 mmol/L (136-145); Total Protein 7.1 g/dL (6.4-8.2)
== END 2024-05-19 23:59 | disposition home or self-care (01) ==
LOC: LAB 03:09
PROVIDERS: Visit Provider Family Medicine
DX: J44.1 Chronic obstructive pulmonary disease with (acute) exacerbation (principal); R41.82 Altered mental status, unspecified
CPT/HCPCS: 36415; 80053; 85025

== ENCOUNTER 2024-05-04 11:13 | Outpatient (REF) | payer MEDICARE, MEDICAID, SELFPAY ==
--- OUTSIDE RECORDS SUMMARY | 2024-05-04 11:21 | XMS_ITS | CCD ---
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 Comment on above: Performed By: #### C BC #### [facility] [address] [place] [address] Dr. Mac Koenig Basophils/100 WBC (Bld) 0.7 % Normal 0.2-2.[address] [facility] Comment on above: Performed By: #### C BC #### [facility] [address] [place] [address] Dr. Mac Koenig EO # 0.3 103/ul Normal 0.0-0.[address] [facility] Comment on above: Performed By: #### C BC #### [facility] [address] [place] [address] Dr. Mac Koenig Eosinophils/100 WBC (Bld) 2.9 % Normal 0.9-7.[address] [facility] Comment on above: Performed By: #### C BC #### [facility] [address] [place] [address] Dr. Mac Koenig Erythrocyte distribution width (RBC) [Ratio] 13.1 % Normal 11.0-15.[address] [facility] Comment on above: Performed By: #### C BC #### [facility] [address] [place] [address] Dr. Mac Koenig Hematocrit (Bld) [Volume fraction] 42.7 % Normal 36.0-48.[address] [facility] Comment on above: Performed By: #### C BC #### [facility] [address] [place] [address] Dr. Mac Koenig Hemoglobin (Bld) [Mass/Vol] 13.7 g/dL Normal 12.0-16.[address] [facility] Comment on above: Performed By: #### C BC #### [facility] [address] [place] [address] Dr. Mac Koenig IG # 0.04 10e3/ul Critically high 0.00-0.03 [facility] Comment on above: Performed By: #### C BC #### [facility] [address] [place] [address] Dr. Mac Koenig IG % 0.4 % Normal 0.0-0.5 [facility] Comment on above: Performed By: #### C BC #### [facility] [address] [place] [address] Dr. Mac Koenig LYMPH # 3.5 103/ul Normal 1.2-3.8 [facility] Comment on above: Performed By: #### C BC #### [facility] [address] [place] [address] Dr. Mac Koenig Lymphocytes/100 WBC (Bld) 35.1 % Normal 20.5-60.[address] [facility] Comment on above: Performed By: #### C BC #### [facility] [address] [place] [address] Dr. Mac Koenig MANUAL DIFF REQ NO Normal [facility] Comment on above: Performed By: #### C BC #### [facility] [address] [place] [address] Dr. aMc Koenig MCH (RBC) [Entitic mass] 33.7 pg Normal 26.7-34.[address] [facility] Comment on above: Performed By: #### C BC #### [facility] [address] [place] [address] Dr. Mac Koenig MCHC (RBC) [Mass/Vol] 32.1 g/dL Normal 29.9-35.2 [facility] Comment on above: Performed By: #### C BC #### [facility] [address] [place] [address] Dr. Mac Koenig MCV (RBC) [Entitic vol] 104.9 fL Critically high 81.0-99.[address] [facility] Comment on above: Performed By: #### C BC #### [facility] [address] [place] [address] Dr. Mac Koenig MONO # 0.8 103/ul Normal 0.3-0.[address] [facility] Comment on above: Performed By: #### C BC #### [facility] [address] [place] [address] Dr. Mac Koenig Monocytes/100 WBC (Bld) 7.6 % Normal 1.7-12.[address] [facility] Comment on above: Performed By: #### C BC #### [facility] [address] [place] [address] Dr. Mac Koenig NEUT # 5.3 103/ul Normal 1.4-6.5 [facility] Comment on above: Performed By: #### C BC #### [facility] [address] [place] [address] Dr. Mac Koenig Neutrophils/100 WBC (Bld) 53.3 % Normal 43.0-75.[address] [facility] Comment on above: Performed By: #### C BC #### [facility] [address] [place] [address] Dr. Mac Koenig Platelet mean volume (Bld) [Entitic vol] 12.7 fL Normal 9.5-13.[address] [facility] Comment on above: Performed By: #### C BC #### [facility] [address] [place] [address] Dr. Mac Koenig PLT 320 103/ul Normal 150-[address] [facility] Comment on above: Performed By: #### C BC #### [facility] [address] [place] [address] Dr. Mac Koenig RBC 4.07 106/ul Critically low 4.20-5.40 [facility] Comment on above: Performed By: #### C BC #### [facility] [address] [place] [address] Dr. Mac Koenig WBC 9.9 103/ul Normal 4.0-11.[address] [facility] Comment on above: Performed By: #### C BC #### [facility] [address] [place] [address] Dr. Mac Koenig PROF 14(COMP METB)on 023 Albumin [Mass/Vol] 3.3 g/dL Critically low 3.4-5.0 [facility] Comment on above: Performed By: #### C BC #### [facility] [address] [place] [address] Dr. Mac Koenig Albumin/Globulin [Mass ratio] 0.8 {ratio} Normal [facility] Comment on above: Performed By: #### C BC #### [facility] [address] [place] [address] Dr. Mac Koenig ALP [Catalytic activity/Vol] 123 U/L Critically high 46-[address] [facility] Comment on above: Performed By: #### C BC #### [facility] [address] [place] [address] Dr. Mac Koenig ALT [Catalytic activity/Vol] 22 U/L Normal 14-[address] [facility] Comment on above: Performed By: #### C BC #### [facility] [address] [place] [address] Dr. Mac Koenig Anion gap [Moles/Vol] 8.9 mmol/L Normal [facility] Comment on above: Performed By: #### C BC #### [facility] [address] [address] [address] Mac Koenig AST [Catalytic activity/Vol] 13 U/L Critically low 15-[address] [facility] Comment on above: Performed By: #### C BC #### [facility] [address] [address] [address] Mac Koenig Bilirubin [Mass/Vol] 0.3 mg/dL Normal 0.2-1.[address] [facility] Comment on above: Performed By: #### C BC #### [facility] [address] [address] [address] Mac Koenig Calcium [Mass/Vol] 9.2 mg/dL Normal 8.5-10.1 [facility] Comment on above: Performed By: #### C BC #### [facility] [address] [address] [address] Mac Koenig Chloride [Moles/Vol] 105 mmol/L Normal 98-[address] [facility] Comment on above: Performed By: #### C BC #### [facility] [address] [address] [address] Mac Koenig CO2 [Moles/Vol] 30.3 mmol/L Normal 21.0-32.0 [facility] Comment on above: Performed By: #### C BC #### [facility] [address] [address] [address] Mac Koenig Creatinine [Mass/Vol] 0.89 mg/dL Normal 0.55-1.[address] [facility] Comment on above: Performed By: #### C BC #### [facility] [address] [address] [address] Mac Koenig EGFR-AF YEMENI >60 Normal >=60 [facility] Comment on above: Performed By: #### C BC #### [facility] [address] [address] [address] Mac Koenig EGFR-NON AF YEMENI >60 Normal >=[address] [facility] Comment on above: Performed By: #### C BC #### [facility] [address] [address] [address] Mac Koenig Globulin (S) [Mass/Vol] 3.9 g/dL Normal [facility] Comment on above: Performed By: #### C BC #### [facility] [address] [address] [address] Mac Koenig Glucose [Mass/Vol] 81 mg/dL Normal 74-106 [facility] Comment on above: Performed By: #### C BC #### [facility] [address] [address] [address] Mac Koenig Potassium [Moles/Vol] 4.2 mmol/L Normal 3.5-5.[address] [facility] Comment on above: Performed By: #### C BC #### [facility] [address] [address] [address] Mac Koenig Protein [Mass/Vol] 7.2 g/dL Normal 6.4-8.2 [facility] Comment on above: Performed By: #### C BC #### [facility] [address] [address] [address] Mac Koenig Sodium [Moles/Vol] 140 mmol/L Normal 136-145 [facility] Comment on above: Performed By: #### C BC #### [facility] [address] [address] [address] Mac Koenig Urea nitrogen [Mass/Vol] 14.0 mg/dL Normal 7.0-18.0 [facility] Comment on above: Performed By: #### C BC #### [facility] [address] [address] [address] Mac Koenig Urea nitrogen/Creatinine [Mass ratio] 15.7 mg/mg Normal [facility] Comment on above: Performed By: #### C BC #### [facility] [address] [place] [address] Dr. Mac Koenig TROPONIN, HIGH SENSITIVITYon 01-28-2023 HSTROP 6.4 pg/mL Normal 4.0-51.3 [facility] Comment on above: Result Comment: CUT- OFF POINTS HAVE BEEN ESTABLISHED BASED ON THE FOURTH UNIVERSAL DEFINITIONS OF MYOCARDIAL INFARCTION. THE UPPER REFERENCE LIMIT (URL) OF TROPONIN, DEFINED THE 99TH PERCENTILE OF cTnI DISTRIBUTION IN A REFERENCE POPULATION, HAS BEEN CONFIRMED THE DECISION THRESHOLD FOR [place] DIAGNOSIS. Performed By: #### C BC #### [facility] [address] [place] [address] Dr. Mac Koenig XR CHEST 1 Von [...] ISAIAH MICHAELS Date: 2023-01-28 14:36 Normal [facility] BNPon 08-09-2022 Natriuretic peptide B (Bld) [Mass/Vol] 427.0 pg/mL Normal <=1,800.0 [facility] Comment on above: Performed By: #### L ACT #### [facility] [address] [place] [address] Dr. Mac Koenig CARDIAC KARINA 3-6on 2 CK [Catalytic activity/Vol] 30 U/L Normal 26-192 [facility] Comment on above: Performed By: #### T 4 #### [facility] [address] [place] [address] Dr. Mac Koenig CK.MB [Mass/Vol] 1.65 ng/mL Normal <=3.60 [facility] Comment on above: Performed By: #### T 4 #### [facility] [address] [place] [address] Dr. Mac Koenig HSTROP 8.3 pg/mL Normal 4.0-51.[address] [facility] Comment on above: Result Comment: CUT- OFF POINTS HAVE BEEN ESTABLISHED BASED ON THE FOURTH UNIVERSAL DEFINITIONS OF MYOCARDIAL INFARCTION. THE UPPER REFERENCE LIMIT (URL) OF TROPONIN, DEFINED THE 99TH PERCENTILE OF cTnI DISTRIBUTION IN A REFERENCE POPULATION, HAS BEEN CONFIRMED THE DECISION THRESHOLD FOR [place] DIAGNOSIS. Performed By: #### T 4 #### [facility] [address] [place] [address] Dr. Mac oKenig CBC AUTO DIFFon 08-09-2022 BASO # 0.1 103/ul Normal 0.0-0.[address] [facility] Comment on above: Performed By: #### C BC #### [facility] [address] [place] [address] Dr. Mac Koenig Basophils/100 WBC (Bld) 1.0 % Normal 0.2-2.0 [facility] Comment on above: Performed By: #### C BC #### [facility] [address] [place] [address] Dr. Mac Koenig EO # 0.2 103/ul Normal 0.0-0.[address] [facility] Comment on above: Performed By: #### C BC #### [facility] [address] [place] [address] Dr. Mac Koenig Eosinophils/100 WBC (Bld) 2.1 % Normal 0.9-7.0 [facility] Comment on above: Performed By: #### C BC #### [facility] [address] [place] [address] Dr. Mac Koenig Erythrocyte distribution width (RBC) [Ratio] 14.1 % Normal 11.0-15.[address] [facility] Comment on above: Performed By: #### C BC #### [facility] [address] [place] [address] Dr. Mac Koenig Hematocrit (Bld) [Volume fraction] 45.2 % Normal 36.0-48.0 [facility] Comment on above: Performed By: #### C BC #### [facility] [address] [place] [address] Dr. Mac Koenig Hemoglobin (Bld) [Mass/Vol] 15.2 g/dL Normal 12.0-16.[address] [facility] Comment on above: Performed By: #### C BC #### [facility] [address] [place] [address] Dr. Mac Koenig IG # 0.02 10e3/ul Normal 0.00-0.[address] [facility] Comment on above: Performed By: #### C BC #### [facility] [address] [place] [address] Dr. Mac Koenig IG % 0.3 % Normal 0.0-0.[address] [facility] Comment on above: Performed By: #### C BC #### [facility] [address] [place] [address] Dr. Mac Koenig LYMPH # 2.7 103/ul Normal 1.2-3.[address] [facility] Comment on above: Performed By: #### C BC #### [facility] [address] [place] [address] Dr. Mac Koenig Lymphocytes/100 WBC (Bld) 34.9 % Normal 20.5-60.[address] [facility] Comment on above: Performed By: #### C BC #### [facility] [address] [place] [address] Dr. Mac Koenig MANUAL DIFF REQ NO Normal [facility] Comment on above: Performed By: #### C BC #### [facility] [address] [place] [address] Dr. Mac Koenig MCH (RBC) [Entitic mass] 37.1 pg Critically high 26.7-34.[address] [facility] Comment on above: Performed By: #### C BC #### [facility] [address] [place] [address] Dr. Mac Koenig MCHC (RBC) [Mass/Vol] 33.6 g/dL Normal 29.9-35.[address] [facility] Comment on above: Performed By: #### C BC #### [facility] [address] [place] [address] Dr. Mac Koenig MCV (RBC) [Entitic vol] 110.2 fL Critically high 81.0-99.[address] [facility] Comment on above: Performed By: #### C BC #### [facility] [address] [place] [address] Dr. Mac Koenig MONO # 0.5 103/ul Normal 0.3-0.[address] [facility] Comment on above: Performed By: #### C BC #### [facility] [address] [place] [address] Dr. Mac Koenig Monocytes/100 WBC (Bld) 6.3 % Normal 1.7-12.[address] [facility] Comment on above: Performed By: #### C BC #### [facility] [address] [place] [address] Dr. Mac Koenig NEUT # 4.3 103/ul Normal 1.4-6.[address] [facility] Comment on above: Performed By: #### C BC #### [facility] [address] [place] [address] Dr. Mac Koenig Neutrophils/100 WBC (Bld) 55.4 % Normal 43.0-75.[address] [facility] Comment on above: Performed By: #### C BC #### [facility] [address] [place] [address] Dr. Mac Koenig Platelet mean volume (Bld) [Entitic vol] 12.1 fL Normal 9.5-13.[address] [facility] Comment on above: Performed By: #### C BC #### [facility] [address] [place] [address] Dr. Mac Koenig PLT 459 103/ul Critically high 150-450 [facility] Comment on above: Performed By: #### C BC #### [facility] [address] [place] [address] Dr. Mac Koenig RBC 4.10 106/ul Critically low 4.20-5.40 [facility] Comment on above: Performed By: #### C BC #### [facility] [address] [place] [address] Dr. Mac Koenig WBC 7.7 103/ul Normal 4.0-11.0 [facility] Comment on above: Performed By: #### C BC #### [facility] [address] [place] [address] Dr. Mac Koenig PROF 14(COMP METB)on 11-21-2 022 Albumin [Mass/Vol] 3.7 g/dL Normal 3.4-5.0 [facility] Comment on above: Performed By: #### L ACT #### [facility] [address] [place] [address] Dr. Mac Koenig Albumin/Globulin [Mass ratio] 0.8 {ratio} Normal [facility] Comment on above: Performed By: #### L ACT #### [facility] [address] [address] [address] Mac Koenig ALP [Catalytic activity/Vol] 142 U/L Critically high 46-[address] [facility] Comment on above: Performed By: #### L ACT #### [facility] [address] [place] [address] Dr. Mac Koenig ALT [Catalytic activity/Vol] 32 U/L Normal 14-[address] [facility] Comment on above: Performed By: #### L ACT #### [facility] [address] [place] [address] Dr. Mac Koenig Anion gap [Moles/Vol] 8.7 mmol/L Normal [facility] Comment on above: Performed By: #### L ACT #### [facility] [address] [place] [address] Dr. Mac Koenig AST [Catalytic activity/Vol] 63 U/L Critically high 15-[address] [facility] Comment on above: Performed By: #### L ACT #### [facility] [address] [place] [address] Dr. Mac Koenig Bilirubin [Mass/Vol] 0.4 mg/dL Normal 0.2-1.[address] [facility] Comment on above: Performed By: #### L ACT #### [facility] [address] [place] [address] Dr. Mac Koenig Calcium [Mass/Vol] 10.0 mg/dL Normal 8.5-10.1 [facility] Comment on above: Performed By: #### L ACT #### [facility] [address] [place] [address] Dr. Mac Koenig Chloride [Moles/Vol] 99 mmol/L Normal 98-[address] [facility] Comment on above: Performed By: #### L ACT #### [facility] [address] [address] [address] Mac Koenig CO2 [Moles/Vol] 31.5 mmol/L Normal 21.0-32.0 [facility] Comment on above: Performed By: #### L ACT #### [facility] [address] [address] [address] Mac Koenig Creatinine [Mass/Vol] 0.73 mg/dL Normal 0.55-1.[address] [facility] Comment on above: Performed By: #### L ACT #### [facility] [address] [address] [address] Mac Koenig EGFR-AF YEMENI >60 Normal >=60 [facility] Comment on above: Performed By: #### L ACT #### [facility] [address] [place] [address] Dr. Mac Koenig EGFR-NON AF YEMENI >60 Normal >=[address] [facility] Comment on above: Performed By: #### L ACT #### [facility] [address] [place] [address] Dr. Mac Koenig Globulin (S) [Mass/Vol] 4.6 g/dL Normal [facility] Comment on above: Performed By: #### L ACT #### [facility] [address] [place] [address] Dr. Mac Koenig Glucose [Mass/Vol] 110 mg/dL Critically high 74-106 [facility] Comment on above: Performed By: #### L ACT #### [facility] [address] [place] [address] Dr. Mac Koenig Potassium [Moles/Vol] 4.2 mmol/L Normal 3.5-5.[address] [facility] Comment on above: Performed By: #### L ACT #### [facility] [address] [place] [address] Dr. Mac Koenig Protein [Mass/Vol] 8.3 g/dL Critically high 6.4-8.2 [facility] Comment on above: Performed By: #### L ACT #### [facility] [address] [address] [address] Mac Koenig Sodium [Moles/Vol] 135 mmol/L Critically low 136-145 [facility] Comment on above: Performed By: #### L ACT #### [facility] [address] [address] [address] Mac Koenig Urea nitrogen [Mass/Vol] 10.0 mg/dL Normal 7.0-18.[address] [facility] Comment on above: Performed By: #### L ACT #### [facility] [address] [address] [address] Mac Koenig Urea nitrogen/Creatinine [Mass ratio] 13.7 mg/mg Normal [facility] Comment on above: Performed By: #### L ACT #### [facility] [address] [address] [address] Mac Koenig TROPONIN, HIGH SENSITIVITYon 08-09-2022 HSTROP 9.1 pg/mL Normal 4.0-51.3 [facility] Comment on above: Result Comment: CUT- OFF POINTS HAVE BEEN ESTABLISHED BASED ON THE FOURTH UNIVERSAL DEFINITIONS OF MYOCARDIAL INFARCTION. THE UPPER REFERENCE LIMIT (URL) OF TROPONIN, DEFINED THE 99TH PERCENTILE OF cTnI DISTRIBUTION IN A REFERENCE POPULATION, HAS BEEN CONFIRMED THE DECISION THRESHOLD FOR [place] DIAGNOSIS. Performed By: #### L ACT #### [facility] [address] [place] [address] Dr. Mac Koenig XR CHEST 1 Von 08-09-2022 XR CHEST 1 V ONE-VIEW CHEST RADIOGRAPH, 08/09/2022 5:01 PM EST COMPARISON: Chest, 07/22/2022. CLINICAL HISTORY: CHEST PAIN, UNSPECIFIED Findings and impression: 1. No acute cardiopulmonary disease. 2. Normal heart size. 3. No acute osseous abnormality. Electronically authenticated by: Aida BLAKE Date: 2022-08-09 17:54 Normal [facility] CBC AUTO DIFFon 07-26-2022 BASO # 0.0 103/ul Normal 0.0-0.[address] [facility] Comment on above: Performed By: #### C BC #### [facility] [address] [address] [address] Mac Koenig Basophils/100 WBC (Bld) 0.3 % Normal 0.2-2.[address] [facility] Comment on above: Performed By: #### C BC #### [facility] [address] [place] [address] Dr. Mac Koenig EO # 0.1 103/ul Normal 0.0-0.[address] [facility] Comment on above: Performed By: #### C BC #### [facility] [address] [place] [address] Dr. Mac Koenig Eosinophils/100 WBC (Bld) 0.5 % Critically low 0.9-7.[address] [facility] Comment on above: Performed By: #### C BC #### [facility] [address] [place] [address] Dr. Mac Koenig Erythrocyte distribution width (RBC) [Ratio] 13.5 % Normal 11.0-15.[address] [facility] Comment on above: Performed By: #### C BC #### [facility] [address] [place] [address] Dr. Mac Koenig Hematocrit (Bld) [Volume fraction] 35.5 % Critically low 36.0-48.[address] [facility] Comment on above: Performed By: #### C BC #### [facility] [address] [place] [address] Dr. Mac Koenig Hemoglobin (Bld) [Mass/Vol] 12.2 g/dL Normal 12.0-16.[address] [facility] Comment on above: Performed By: #### C BC #### [facility] [address] [place] [address] Dr. Mac Koenig IG # 0.03 10e3/ul Normal 0.00-0.[address] [facility] Comment on above: Performed By: #### C BC #### [facility] [address] [place] [address] Dr. Mac Koenig IG % 0.3 % Normal 0.0-0.[address] [facility] Comment on above: Performed By: #### C BC #### [facility] [address] [place] [address] Dr. Mac Koenig LYMPH # 1.4 103/ul Normal 1.2-3.[address] [facility] Comment on above: Performed By: #### C BC #### [facility] [address] [place] [address] Dr. Mac Koenig Lymphocytes/100 WBC (Bld) 13.8 % Critically low 20.5-60.[address] [facility] Comment on above: Performed By: #### C BC #### [facility] [address] [place] [address] Dr. Mac Koenig MANUAL DIFF REQ NO Normal [facility] Comment on above: Performed By: #### C BC #### [facility] [address] [place] [address] Dr. Mac Koenig MCH (RBC) [Entitic mass] 36.9 pg Critically high 26.7-34.[address] [facility] Comment on above: Performed By: #### C BC #### [facility] [address] [place] [address] Dr. Mac Koenig MCHC (RBC) [Mass/Vol] 34.4 g/dL Normal 29.9-35.[address] [facility] Comment on above: Performed By: #### C BC #### [facility] [address] [place] [address] Dr. Mac Koenig MCV (RBC) [Entitic vol] 107.3 fL Critically high 81.0-99.[address] [facility] Comment on above: Performed By: #### C BC #### [facility] [address] [place] [address] Dr. Mac Koenig MONO # 0.6 103/ul Normal 0.3-0.[address] [facility] Comment on above: Performed By: #### C BC #### [facility] [address] [place] [address] Dr. Mac Koenig Monocytes/100 WBC (Bld) 5.8 % Normal 1.7-12.[address] [facility] Comment on above: Performed By: #### C BC #### [facility] [address] [place] [address] Dr. Mac Koenig NEUT # 8.0 103/ul Critically high 1.4-6.5 [facility] Comment on above: Performed By: #### C BC #### [facility] [address] [address] [address] Mac Koenig Neutrophils/100 WBC (Bld) 79.3 % Critically high 43.0-75.[address] [facility] Comment on above: Performed By: #### C BC #### [facility] [address] [address] [address] Mac Koenig Platelet mean volume (Bld) [Entitic vol] 12.9 fL Normal 9.5-13.[address] [facility] Comment on above: Performed By: #### C BC #### [facility] [address] [place] [address] Dr. Mac Koenig PLT 199 103/ul Normal 150-[address] [facility] Comment on above: Performed By: #### C BC #### [facility] [address] [place] [address] Dr. Mac Koenig RBC 3.31 106/ul Critically low 4.20-5.40 [facility] Comment on above: Performed By: #### C BC #### [facility] [address] [place] [address] Dr. Mac Koenig WBC 10.0 103/ul Normal 4.0-11.[address] [facility] Comment on above: Performed By: #### C BC #### [facility] [address] [place] [address] Dr. Mac Koenig ECHOCARDIO M/2D COMPLETEon 1 09-25-2021 ECHOCARDIO M/2D COMPLETE Patient: MICHEAL DAVE Exam Date: 07/26/2022 : 1945 Gender:F Ordering : DR RADHA PETERS . Admission #: [id number] Family : DR ROSE DIAZ D.O. Order #: [id number] CLICK HERE TO VIEW EXAM ECHOCARDIOGRAM REPORT [...] (Peak Sancho): 2.03 cm2, 2.03 cm2 Deceleration Haralson: 1.52 m/s2 Pressure Half-Time: 594.74 ms Peak [...] Sofia M.D. on 07/27/2022 at 15:[address] [facility] PROF 14(COMP METB)on 022 Albumin [Mass/Vol] 2.4 g/dL Critically low 3.4-5.0 [facility] Comment on above: Performed By: #### C MP #### [facility] [address] [place] [address] Dr. Mac Koenig Albumin/Globulin [Mass ratio] 0.6 {ratio} Normal [facility] Comment on above: Performed By: #### C MP #### [facility] [address] [place] [address] Dr. Mac Koenig ALP [Catalytic activity/Vol] 140 U/L Critically high 46-[address] [facility] Comment on above: Performed By: #### C MP #### [facility] [address] [place] [address] Dr. Mac Koenig ALT [Catalytic activity/Vol] 54 U/L Normal 14-[address] [facility] Comment on above: Performed By: #### C MP #### [facility] [address] [place] [address] Dr. Mac Koenig Anion gap [Moles/Vol] 11.1 mmol/L Normal [facility] Comment on above: Performed By: #### C MP #### [facility] [address] [address] [address] Mac Koenig AST [Catalytic activity/Vol] 37 U/L Normal 15-[address] [facility] Comment on above: Performed By: #### C MP #### [facility] [address] [address] [address] Mac Koenig Bilirubin [Mass/Vol] 0.6 mg/dL Normal 0.2-1.[address] [facility] Comment on above: Performed By: #### C MP #### [facility] [address] [address] [address] Mac Koenig Calcium [Mass/Vol] 8.5 mg/dL Normal 8.5-10.1 [facility] Comment on above: Performed By: #### C MP #### [facility] [address] [address] [address] Mac Koenig Chloride [Moles/Vol] 99 mmol/L Normal 98-[address] [facility] Comment on above: Performed By: #### C MP #### [facility] [address] [address] [address] Mac Koenig CO2 [Moles/Vol] 27.5 mmol/L Normal 21.0-32.0 [facility] Comment on above: Performed By: #### C MP #### [facility] [address] [address] [address] Mac Koenig Creatinine [Mass/Vol] 0.57 mg/dL Normal 0.55-1.[address] [facility] Comment on above: Performed By: #### C MP #### [facility] [address] [address] [address] Mac Koenig EGFR-AF YEMENI >60 Normal >=60 [facility] Comment on above: Performed By: #### C MP #### [facility] [address] [address] [address] Mac Koenig EGFR-NON AF YEMENI >60 Normal >=[address] [facility] Comment on above: Performed By: #### C MP #### [facility] [address] [address] [address] Mac Koenig Globulin (S) [Mass/Vol] 3.7 g/dL Normal [facility] Comment on above: Performed By: #### C MP #### [facility] [address] [address] [address] Mac Koenig Glucose [Mass/Vol] 96 mg/dL Normal 74-106 [facility] Comment on above: Performed By: #### C MP #### [facility] [address] [address] [address] Mac Koenig Potassium [Moles/Vol] 3.6 mmol/L Normal 3.5-5.[address] [facility] Comment on above: Performed By: #### C MP #### [facility] [address] [address] [address] Mac Koenig Protein [Mass/Vol] 6.1 g/dL Critically low 6.4-8.2 [facility] Comment on above: Performed By: #### C MP #### [facility] [address] [place] [address] Dr. Mac Koenig Sodium [Moles/Vol] 134 mmol/L Critically low 136-145 [facility] Comment on above: Performed By: #### C MP #### [facility] [address] [place] [address] Dr. Mac Koenig Urea nitrogen [Mass/Vol] 7.0 mg/dL Normal 7.0-18.[address] [facility] Comment on above: Performed By: #### C MP #### [facility] [address] [place] [address] Dr. Mac Koenig Urea nitrogen/Creatinine [Mass ratio] 12.3 mg/mg Normal [facility] Comment on above: Performed By: #### C MP #### [facility] [address] [place] [address] Dr. Mac Koenig CBC AUTO DIFFon 07-25-2022 BASO # 0.0 103/ul Normal 0.0-0.[address] [facility] Comment on above: Performed By: #### C BC #### [facility] [address] [place] [address] Dr. Mac Koenig Basophils/100 WBC (Bld) 0.5 % Normal 0.2-2.[address] [facility] Comment on above: Performed By: #### C BC #### [facility] [address] [place] [address] Dr. Mac Koenig EO # 0.1 103/ul Normal 0.0-0.7 [facility] Comment on above: Performed By: #### C BC #### [facility] [address] [place] [address] Dr. Mac Koenig Eosinophils/100 WBC (Bld) 1.0 % Normal 0.9-7.[address] [facility] Comment on above: Performed By: #### C BC #### [facility] [address] [place] [address] Dr. Mac Koenig Erythrocyte distribution width (RBC) [Ratio] 13.7 % Normal 11.0-15.[address] [facility] Comment on above: Performed By: #### C BC #### [facility] [address] [place] [address] Dr. Mac Koenig Hematocrit (Bld) [Volume fraction] 34.7 % Critically low 36.0-48.[address] [facility] Comment on above: Performed By: #### C BC #### [facility] [address] [place] [address] Dr. Mac Koenig Hemoglobin (Bld) [Mass/Vol] 11.7 g/dL Critically low 12.0-16.0 [facility] Comment on above: Performed By: #### C BC #### [facility] [address] [place] [address] Dr. Mac Koenig IG # 0.02 10e3/ul Normal 0.00-0.03 [facility] Comment on above: Performed By: #### C BC #### [facility] [address] [place] [address] Dr. Mac Koenig IG % 0.3 % Normal 0.0-0.5 [facility] Comment on above: Performed By: #### C BC #### [facility] [address] [address] [address] Mac Koenig LYMPH # 1.2 103/ul Normal 1.2-3.[address] [facility] Comment on above: Performed By: #### C BC #### [facility] [address] [address] [address] Mac Koenig Lymphocytes/100 WBC (Bld) 15.6 % Critically low 20.5-60.[address] [facility] Comment on above: Performed By: #### C BC #### [facility] [address] [address] [address] Mac Koenig MANUAL DIFF REQ NO Normal [facility] Comment on above: Performed By: #### C BC #### [facility] [address] [place] [address] Dr. Mac Koenig MCH (RBC) [Entitic mass] 36.8 pg Critically high 26.7-34.[address] [facility] Comment on above: Performed By: #### C BC #### [facility] [address] [place] [address] Dr. Mac Koenig MCHC (RBC) [Mass/Vol] 33.7 g/dL Normal 29.9-35.[address] [facility] Comment on above: Performed By: #### C BC #### [facility] [address] [place] [address] Dr. Mac Koenig MCV (RBC) [Entitic vol] 109.1 fL Critically high 81.0-99.[address] [facility] Comment on above: Performed By: #### C BC #### [facility] [address] [place] [address] Dr. Mac Koenig MONO # 0.5 103/ul Normal 0.3-0.8 [facility] Comment on above: Performed By: #### C BC #### [facility] [address] [place] [address] Dr. Mac Koenig Monocytes/100 WBC (Bld) 5.9 % Normal 1.7-12.[address] [facility] Comment on above: Performed By: #### C BC #### [facility] [address] [address] [address] Mac Koenig NEUT # 6.0 103/ul Normal 1.4-6.[address] [facility] Comment on above: Performed By: #### C BC #### [facility] [address] [place] [address] Dr. Mac Koenig Neutrophils/100 WBC (Bld) 76.7 % Critically high 43.0-75.[address] [facility] Comment on above: Performed By: #### C BC #### [facility] [address] [place] [address] Dr. Mac Koenig Platelet mean volume (Bld) [Entitic vol] 12.4 fL Normal 9.5-13.[address] [facility] Comment on above: Performed By: #### C BC #### [facility] [address] [place] [address] Dr. Mac Koenig PLT 166 103/ul Normal 150-[address] [facility] Comment on above: Performed By: #### C BC #### [facility] [address] [place] [address] Dr. Mac Koenig RBC 3.18 106/ul Critically low 4.20-5.40 [facility] Comment on above: Performed By: #### C BC #### [facility] [address] [place] [address] Dr. Mac Koenig WBC 7.8 103/ul Normal 4.0-11.[address] [facility] Comment on above: Performed By: #### C BC #### [facility] [address] [place] [address] Dr. Mac Koenig PROF 14(COMP METB)on 022 Albumin [Mass/Vol] 1.9 g/dL Critically low 3.4-5.0 [facility] Comment on above: Performed By: #### T 4 #### [facility] [address] [place] [address] Dr. Mac Koenig Albumin/Globulin [Mass ratio] 0.5 {ratio} Normal [facility] Comment on above: Performed By: #### T 4 #### [facility] [address] [place], [place] [id number] Dr. Mac Koenig ALP [Catalytic activity/Vol] 153 U/L Critically high 46-[address] [facility] Comment on above: Performed By: #### T 4 #### [facility] [address] [place] [address] Dr. Mac Koenig ALT [Catalytic activity/Vol] 63 U/L Critically high 14-[address] [facility] Comment on above: Performed By: #### T 4 #### [facility] [address] [address] [address] Mac Koenig Anion gap [Moles/Vol] 7.0 mmol/L Normal [facility] Comment on above: Performed By: #### T 4 #### [facility] [address] [place] [address] Dr. Mac Koenig AST [Catalytic activity/Vol] 44 U/L Critically high 15-[address] [facility] Comment on above: Performed By: #### T 4 #### [facility] [address] [place] [address] Dr. Mac Koenig Bilirubin [Mass/Vol] 0.6 mg/dL Normal 0.2-1.[address] [facility] Comment on above: Performed By: #### T 4 #### [facility] [address] [place] [address] Dr. Mac Koenig Calcium [Mass/Vol] 8.7 mg/dL Normal 8.5-10.1 [facility] Comment on above: Performed By: #### T 4 #### [facility] [address] [place] [address] Dr. Mac Koenig Chloride [Moles/Vol] 104 mmol/L Normal 98-107 [facility] Comment on above: Performed By: #### T 4 #### [facility] [address] [place] [address] Dr. Mac Koenig CO2 [Moles/Vol] 25.4 mmol/L Normal 21.0-32.0 [facility] Comment on above: Performed By: #### T 4 #### [facility] [address] [place] [address] Dr. Mac Koenig Creatinine [Mass/Vol] 0.74 mg/dL Normal 0.55-1.[address] [facility] Comment on above: Performed By: #### T 4 #### [facility] [address] [address] [address] Mac Koenig EGFR-AF YEMENI >60 Normal >=60 [facility] Comment on above: Performed By: #### T 4 #### [facility] [address] [address] [address] Mac Koenig EGFR-NON AF YEMENI >60 Normal >=[address] [facility] Comment on above: Performed By: #### T 4 #### [facility] [address] [address] [address] Mac Koenig Globulin (S) [Mass/Vol] 3.5 g/dL Normal [facility] Comment on above: Performed By: #### T 4 #### [facility] [address] [place] [address] Dr. Mac Koenig Glucose [Mass/Vol] 80 mg/dL Normal 74-106 [facility] Comment on above: Performed By: #### T 4 #### [facility] [address] [place] [address] Dr. Mac Koenig Potassium [Moles/Vol] 3.4 mmol/L Critically low 3.5-5.[address] [facility] Comment on above: Performed By: #### T 4 #### [facility] [address] [place] [address] Dr. Mac Koenig Protein [Mass/Vol] 5.4 g/dL Critically low 6.4-8.2 [facility] Comment on above: Performed By: #### T 4 #### [facility] [address] [place] [address] Dr. Mac Koenig Sodium [Moles/Vol] 133 mmol/L Critically low 136-145 [facility] Comment on above: Performed By: #### T 4 #### [facility] [address] [place] [address] Dr. Mac Koenig Urea nitrogen [Mass/Vol] 12.0 mg/dL Normal 7.0-18.[address] [facility] Comment on above: Performed By: #### T 4 #### [facility] [address] [address] [address] Mac Koenig Urea nitrogen/Creatinine [Mass ratio] 16.2 mg/mg Normal [facility] Comment on above: Performed By: #### T 4 #### [facility] [address] [place] [address] Dr. Mac Koenig CBC AUTO DIFFon 07-24-2022 BASO # 0.1 103/ul Normal 0.0-0.[address] [facility] Comment on above: Performed By: #### T 4 #### [facility] [address] [place] [address] Dr. Mac Koenig Basophils/100 WBC (Bld) 0.6 % Normal 0.2-2.[address] [facility] Comment on above: Performed By: #### T 4 #### [facility] [address] [place] [address] Dr. Mac Koenig EO # 0.0 103/ul Normal 0.0-0.[address] [facility] Comment on above: Performed By: #### T 4 #### [facility] [address] [place] [address] Dr. Mac Koenig Eosinophils/100 WBC (Bld) 0.1 % Critically low 0.9-7.[address] [facility] Comment on above: Performed By: #### T 4 #### [facility] [address] [place] [address] Dr. Mac Koenig Erythrocyte distribution width (RBC) [Ratio] 13.6 % Normal 11.0-15.[address] [facility] Comment on above: Performed By: #### T 4 #### [facility] [address] [place] [address] Dr. Mac Koenig Hematocrit (Bld) [Volume fraction] 34.6 % Critically low 36.0-48.[address] [facility] Comment on above: Performed By: #### T 4 #### [facility] [address] [place] [address] Dr. Mac Koenig Hemoglobin (Bld) [Mass/Vol] 11.7 g/dL Critically low 12.0-16.[address] [facility] Comment on above: Performed By: #### T 4 #### [facility] [address] [address] [address] Mac Koenig IG # 0.04 10e3/ul Critically high 0.00-0.03 [facility] Comment on above: Performed By: #### T 4 #### [facility] [address] [address] [address] Mac Koenig IG % 0.4 % Normal 0.0-0.[address] [facility] Comment on above: Performed By: #### T 4 #### [facility] [address] [address] [address] Mac Koenig LYMPH # 1.1 103/ul Critically low 1.2-3.8 [facility] Comment on above: Performed By: #### T 4 #### [facility] [address] [place] [address] Dr. Mac Koenig Lymphocytes/100 WBC (Bld) 10.1 % Critically low 20.5-60.[address] [facility] Comment on above: Performed By: #### T 4 #### [facility] [address] [address] [address] Mac Koenig MANUAL DIFF REQ NO Normal [facility] Comment on above: Performed By: #### T 4 #### [facility] [address] [place] [address] Dr. Mac Koenig MCH (RBC) [Entitic mass] 36.7 pg Critically high 26.7-34.[address] [facility] Comment on above: Performed By: #### T 4 #### [facility] [address] [address] [address] Mac Koenig MCHC (RBC) [Mass/Vol] 33.8 g/dL Normal 29.9-35.[address] [facility] Comment on above: Performed By: #### T 4 #### [facility] [address] [place] [address] Dr. Mac Koenig MCV (RBC) [Entitic vol] 108.5 fL Critically high 81.0-99.[address] [facility] Comment on above: Performed By: #### T 4 #### [facility] [address] [address] [address] Mac Koenig MONO # 0.7 103/ul Normal 0.3-0.[address] [facility] Comment on above: Performed By: #### T 4 #### [facility] [address] [address] [address] Mac Koenig Monocytes/100 WBC (Bld) 6.5 % Normal 1.7-12.[address] [facility] Comment on above: Performed By: #### T 4 #### [facility] [address] [place] [address] Dr. Mac Koenig NEUT # 8.6 103/ul Critically high 1.4-6.5 [facility] Comment on above: Performed By: #### T 4 #### [facility] [address] [place] [address] Dr. Mac Koenig Neutrophils/100 WBC (Bld) 82.3 % Critically high 43.0-75.[address] [facility] Comment on above: Performed By: #### T 4 #### [facility] [address] [place] [address] Dr. Mac Koenig Platelet mean volume (Bld) [Entitic vol] 12.7 fL Normal 9.5-13.[address] [facility] Comment on above: Performed By: #### T 4 #### [facility] [address] [place] [address] Dr. Mac Koenig PLT 204 103/ul Normal 150-450 [facility] Comment on above: Performed By: #### T 4 #### [facility] [address] [place] [address] Dr. Mac Koenig RBC 3.19 106/ul Critically low 4.20-5.40 [facility] Comment on above: Performed By: #### T 4 #### [facility] [address] [place] [address] Dr. Mac Koenig WBC 10.4 103/ul Normal 4.0-11.0 [facility] Comment on above: Performed By: #### T 4 #### [facility] [address] [place] [address] Dr. Mac Koenig FREE T3on 07-24-2022 FREE T3 1.50 pg/mlL Critically low 2.18-3.98 [facility] Comment on above: Performed By: #### C BC #### [facility] [address] [place] [address] Dr. Mac Koenig PROF 14(COMP METB)on 022 Albumin [Mass/Vol] 2.4 g/dL Critically low 3.4-5.0 [facility] Comment on above: Performed By: #### T 4 #### [facility] [address] [place] [address] Dr. Mac Koenig Albumin/Globulin [Mass ratio] 0.7 {ratio} Normal [facility] Comment on above: Performed By: #### T 4 #### [facility] [address] [place] [address] Dr. Mac Koenig ALP [Catalytic activity/Vol] 195 U/L Critically high 46-[address] [facility] Comment on above: Performed By: #### T 4 #### [facility] [address] [place] [address] Dr. Mac Koenig ALT [Catalytic activity/Vol] 97 U/L Critically high 14-[address] [facility] Comment on above: Performed By: #### T 4 #### [facility] [address] [place] [address] Dr. Mac Koenig Anion gap [Moles/Vol] 6.2 mmol/L Normal [facility] Comment on above: Performed By: #### T 4 #### [facility] [address] [place] [address] Dr. Mac Koenig AST [Catalytic activity/Vol] 93 U/L Critically high 15-[address] [facility] Comment on above: Performed By: #### T 4 #### [facility] [address] [place] [address] Dr. Mac Koenig Bilirubin [Mass/Vol] 1.2 mg/dL Critically high 0.2-1.[address] [facility] Comment on above: Performed By: #### T 4 #### [facility] [address] [address] [address] Mac Koenig Calcium [Mass/Vol] 8.7 mg/dL Normal 8.5-10.1 [facility] Comment on above: Performed By: #### T 4 #### [facility] [address] [address] [address] Mac Koenig Chloride [Moles/Vol] 100 mmol/L Normal 98-107 [facility] Comment on above: Performed By: #### T 4 #### [facility] [address] [place] [address] Dr. Mac Koenig CO2 [Moles/Vol] 31.4 mmol/L Normal 21.0-32.0 [facility] Comment on above: Performed By: #### T 4 #### [facility] [address] [place] [address] Dr. Mac Koenig Creatinine [Mass/Vol] 0.72 mg/dL Normal 0.55-1.[address] [facility] Comment on above: Performed By: #### T 4 #### [facility] [address] [place] [address] Dr. Mac Koenig EGFR-AF YEMENI >60 Normal >=60 [facility] Comment on above: Performed By: #### T 4 #### [facility] [address] [place] [address] Dr. Mac Koenig EGFR-NON AF YEMENI >60 Normal >=60 [facility] Comment on above: Performed By: #### T 4 #### [facility] [address] [place] [address] Dr. Mac Koenig Globulin (S) [Mass/Vol] 3.5 g/dL Normal [facility] Comment on above: Performed By: #### T 4 #### [facility] [address] [place] [address] Dr. Mac Koenig Glucose [Mass/Vol] 94 mg/dL Normal 74-106 [facility] Comment on above: Performed By: #### T 4 #### [facility] [address] [place] [address] Dr. Mac Koenig Potassium [Moles/Vol] 3.6 mmol/L Normal 3.5-5.[address] [facility] Comment on above: Performed By: #### T 4 #### [facility] [address] [place] [address] Dr. Mac Koenig Protein [Mass/Vol] 5.9 g/dL Critically low 6.4-8.2 [facility] Comment on above: Performed By: #### T 4 #### [facility] [address] [place] [address] Dr. Mac Koenig Sodium [Moles/Vol] 134 mmol/L Critically low 136-145 [facility] Comment on above: Performed By: #### T 4 #### [facility] [address] [place] [address] Dr. Mac Koenig Urea nitrogen [Mass/Vol] 8.0 mg/dL Normal 7.0-18.[address] [facility] Comment on above: Performed By: #### T 4 #### [facility] [address] [place] [address] Dr. Mac Koenig Urea nitrogen/Creatinine [Mass ratio] 11.1 mg/mg Normal [facility] Comment on above: Performed By: #### T 4 #### [facility] [address] [place] [address] Dr. Mac Koenig T4on 07-24-2022 T4 [Mass/Vol] 11.00 ug/dL Normal 4.80-13.90 [facility] Comment on above: Performed By: #### T 4 #### [facility] [address] [place] [address] Dr. Mac Koenig TSHon 07-24-2022 TSH 0.596 uIU/mL Normal 0.358-3.740 [facility] Comment on above: Performed By: #### C BC #### [facility] [address] [place] [address] ABD/PELV W CONon 07-23-[address] ABD/PELV W CON EXAM: CT ABDOMEN PELVIS WITH IV CONTRAST HISTORY: cardiac arrhythmia, chest [...] by: TISH JURADO Date: 2022-07-23 05:[address] [facility] CTA CHEST WO W CONon 022 CTA CHEST WO W CON EXAMINATION: CTA [facility] WO W CON, 07/23/2022 1:39 AM [...] TISH JURADO Date: 2022-07-23 05:01 Normal [facility] URINE PROFILEon 2 Bilirubin Ql (U) Negative Normal NEGATIVE [facility] Comment on above: Performed By: #### T 4 #### [facility] [address] [place] [address] Dr. Mac Koenig Clarity (U) CLEAR Normal CLEAR [facility] Comment on above: Performed By: #### T 4 #### [facility] [address] [place] [address] Dr. Mac Koenig Color (U) LT. YELLOW Normal YELLOW [facility] Comment on above: Performed By: #### T 4 #### [facility] [address] [place] [address] Dr. Mac DEAN A micrscopic examination will be performed if indicated. Normal [facility] Comment on above: Performed By: #### T 4 #### [facility] [address] [place] [address] Dr. Mac Koenig Glucose Ql (U) Negative Normal NEGATIVE [facility] Comment on above: Performed By: #### T 4 #### [facility] [address] [place] [address] Dr. Mac Koenig Hemoglobin Ql (U) Negative Normal NEGATIVE [facility] Comment on above: Performed By: #### T 4 #### [facility] [address] [place] [address] Dr. Mac Koenig Ketones Ql (U) Negative Normal NEGATIVE [facility] Comment on above: Performed By: #### T 4 #### [facility] [address] [place] [address] Dr. Mac Koenig LEUKOCYTES Negative Normal NEGATIVE [facility] Comment on above: Performed By: #### T 4 #### [facility] [address] [place] [address] Dr. Mac Koenig Nitrite Ql (U) Negative Normal NEGATIVE [facility] Comment on above: Performed By: #### T 4 #### [facility] [address] [place] [address] Dr. Mac Koenig pH (U) 6.0 [pH] Normal 5-9 [facility] Comment on above: Performed By: #### T 4 #### [facility] [address] [place] [address] Dr. Mac Koenig SPEC GRAVITY <=1.005 Abnormal 1.005-<=1.025 [facility] Comment on above: Performed By: #### T 4 #### [facility] [address] [place] [address] Dr. Mac Koenig UA PROTEIN Negative Normal NEGATIVE/ TRACE [facility] Comment on above: Performed By: #### T 4 #### [facility] [address] [place] [address] Dr. Mac Koenig UR MICRO IND NOT INDICATED Normal [facility] Comment on above: Performed By: #### T 4 #### [facility] [address] [place] [address] Dr. Mac Koenig Urobilinogen Qn (U) 1.0 {Jd'U}/dL Normal 0.2 - 1. [address] [facility] Comment on above: Performed By: #### T 4 #### [facility] [address] [place] [address] Dr. Mac Koenig LACTATE/LACTIC ACIDon 2021 Lactate [Moles/Vol] 3.1 mmol/L Critically high 0.4-1.[address] [facility] Comment on above: Performed By: #### L ACT #### [facility] [address] [place] [address] Dr. Mac Koenig Lactate [Moles/Vol] 3.7 mmol/L Critically high 0.4-1.[address] [facility] Comment on above: Performed By: #### T 4 #### [facility] [address] [place] [address] Dr. Mac Koenig Lactate [Moles/Vol] 4.1 mmol/L Critically high 0.4-1.[address] [facility] Comment on above: Performed By: #### L ACT #### [facility] [address] [address] [address] Mac Koenig PROF CHEM 8 (BAS METB)on Anion gap [Moles/Vol] 9.0 mmol/L Normal [facility] Comment on above: Performed By: #### T 4 #### [facility] [address] [place] [address] Dr. Mac Koenig Calcium [Mass/Vol] 8.9 mg/dL Normal 8.5-10.1 [facility] Comment on above: Performed By: #### T 4 #### [facility] [address] [place] [address] Dr. Mac Koenig Chloride [Moles/Vol] 101 mmol/L Normal 98-[address] [facility] Comment on above: Performed By: #### T 4 #### [facility] [address] [place] [address] Dr. Mac Koenig CO2 [Moles/Vol] 30.0 mmol/L Normal 21.0-32.0 [facility] Comment on above: Performed By: #### T 4 #### [facility] [address] [place] [address] Dr. Mac Koenig Creatinine [Mass/Vol] 0.74 mg/dL Normal 0.55-1.[address] [facility] Comment on above: Performed By: #### T 4 #### [facility] [address] [place] [address] Dr. Mac Koenig EGFR-AF YEMENI >60 Normal >=60 [facility] Comment on above: Performed By: #### T 4 #### [facility] [address] [place] [address] Dr. Mac Koenig EGFR-NON AF YEMENI >60 Normal >=[address] [facility] Comment on above: Performed By: #### T 4 #### [facility] [address] [place] [address] Dr. Mac Koenig Glucose [Mass/Vol] 133 mg/dL Critically high 74-106 [facility] Comment on above: Performed By: #### T 4 #### [facility] [address] [address] [address] Mac Koenig Potassium [Moles/Vol] 3.0 mmol/L Critically low 3.5-5.1 [facility] Comment on above: Performed By: #### T 4 #### [facility] [address] [place] [address] Dr. Mac Koenig Sodium [Moles/Vol] 137 mmol/L Normal 136-145 [facility] Comment on above: Performed By: #### T 4 #### [facility] [address] [place] [address] Dr. Mac Koenig Urea nitrogen [Mass/Vol] 8.0 mg/dL Normal 7.0-18.[address] [facility] Comment on above: Performed By: #### T 4 #### [facility] [address] [place] [address] Dr. Mac Koenig Urea nitrogen/Creatinine [Mass ratio] 10.8 mg/mg Normal [facility] Comment on above: Performed By: #### T 4 #### [facility] [address] [place] [address] Dr. Mac Koenig TROPONIN, HIGH SENSITIVITYon 07-23-2022 HSTROP 26.8 pg/mL Normal 4.0-51.3 [facility] Comment on above: Result Comment: CUT- OFF POINTS HAVE BEEN ESTABLISHED BASED ON THE FOURTH UNIVERSAL DEFINITIONS OF MYOCARDIAL INFARCTION. THE UPPER REFERENCE LIMIT (URL) OF TROPONIN, DEFINED THE 99TH PERCENTILE OF cTnI DISTRIBUTION IN A REFERENCE POPULATION, HAS BEEN CONFIRMED THE DECISION THRESHOLD FOR [place] DIAGNOSIS. Performed By: #### H STROPN #### [facility] [address] [place] [address] Dr. Mac Koenig HSTROP 12.0 pg/mL Normal 4.0-51.3 [facility] Comment on above: Result Comment: CUT- OFF POINTS HAVE BEEN ESTABLISHED BASED ON THE FOURTH UNIVERSAL DEFINITIONS OF MYOCARDIAL INFARCTION. THE UPPER REFERENCE LIMIT (URL) OF TROPONIN, DEFINED THE 99TH PERCENTILE OF cTnI DISTRIBUTION IN A REFERENCE POPULATION, HAS BEEN CONFIRMED THE DECISION THRESHOLD FOR [place] DIAGNOSIS. Performed By: #### T 4 #### [facility] [address] [place] [address] Dr. Mac Koenig BNPon 07-22-2022 Natriuretic peptide B (Bld) [Mass/Vol] 347.0 pg/mL Normal <=1,800.0 [facility] Comment on above: Performed By: #### L ACT #### [facility] [address] [place] [address] Dr. Mac Koenig CBC AUTO DIFFon 07-22-2022 BASO # 0.1 103/ul Normal 0.0-0.[address] [facility] Comment on above: Performed By: #### T 4 #### [facility] [address] [place] [address] Dr. Mac Koenig Basophils/100 WBC (Bld) 0.7 % Normal 0.2-2.[address] [facility] Comment on above: Performed By: #### T 4 #### [facility] [address] [place] [address] Dr. Mac Koenig EO # 0.1 103/ul Normal 0.0-0.7 [facility] Comment on above: Performed By: #### T 4 #### [facility] [address] [place] [address] Dr. Mac Koenig Eosinophils/100 WBC (Bld) 1.7 % Normal 0.9-7.[address] [facility] Comment on above: Performed By: #### T 4 #### [facility] [address] [place] [address] Dr. Mac Koenig Erythrocyte distribution width (RBC) [Ratio] 13.2 % Normal 11.0-15.0 [facility] Comment on above: Performed By: #### T 4 #### [facility] [address] [place] [address] Dr. Mac Koenig Hematocrit (Bld) [Volume fraction] 37.7 % Normal 36.0-48.[address] [facility] Comment on above: Performed By: #### T 4 #### [facility] [address] [place] [address] Dr. Mac Koenig Hemoglobin (Bld) [Mass/Vol] 12.6 g/dL Normal 12.0-16.0 [facility] Comment on above: Performed By: #### T 4 #### [facility] [address] [place] [address] Dr. Mac Koenig IG # 0.03 10e3/ul Normal 0.00-0.[address] [facility] Comment on above: Performed By: #### T 4 #### [facility] [address] [place] [address] Dr. Mac Koenig IG % 0.4 % Normal 0.0-0.[address] [facility] Comment on above: Performed By: #### T 4 #### [facility] [address] [place] [address] Dr. Mac Koenig LYMPH # 2.6 103/ul Normal 1.2-3.[address] [facility] Comment on above: Performed By: #### T 4 #### [facility] [address] [place] [address] Dr. Mac Koenig Lymphocytes/100 WBC (Bld) 31.2 % Normal 20.5-60.[address] [facility] Comment on above: Performed By: #### T 4 #### [facility] [address] [place] [address] Dr. Mac Koenig MANUAL DIFF REQ NO Normal [facility] Comment on above: Performed By: #### T 4 #### [facility] [address] [place] [address] Dr. Mac Koenig MCH (RBC) [Entitic mass] 36.5 pg Critically high 26.7-34.[address] [facility] Comment on above: Performed By: #### T 4 #### [facility] [address] [place] [address] Dr. Mac Koenig MCHC (RBC) [Mass/Vol] 33.4 g/dL Normal 29.9-35.2 [facility] Comment on above: Performed By: #### T 4 #### [facility] [address] [place] [address] Dr. Mac Koenig MCV (RBC) [Entitic vol] 109.3 fL Critically high 81.0-99.[address] [facility] Comment on above: Performed By: #### T 4 #### [facility] [address] [place] [address] Dr. Mac Koenig MONO # 0.5 103/ul Normal 0.3-0.8 [facility] Comment on above: Performed By: #### T 4 #### [facility] [address] [place] [address] Dr. Mac Koenig Monocytes/100 WBC (Bld) 5.5 % Normal 1.7-12.0 [facility] Comment on above: Performed By: #### T 4 #### [facility] [address] [place] [address] Dr. Mac Koenig NEUT # 5.1 103/ul Normal 1.4-6.5 [facility] Comment on above: Performed By: #### T 4 #### [facility] [address] [place] [address] Dr. Mac Koenig Neutrophils/100 WBC (Bld) 60.5 % Normal 43.0-75.0 [facility] Comment on above: Performed By: #### T 4 #### [facility] [address] [place] [address] Dr. Mac Koenig Platelet mean volume (Bld) [Entitic vol] 12.5 fL Normal 9.5-13.5 [facility] Comment on above: Performed By: #### T 4 #### [facility] [address] [place] [address] Dr. Mac Koenig PLT 309 103/ul Normal 150-450 [facility] Comment on above: Performed By: #### T 4 #### [facility] [address] [place] [address] Dr. Mac Koenig RBC 3.45 106/ul Critically low 4.20-5.40 [facility] Comment on above: Performed By: #### T 4 #### [facility] [address] [place] [address] Dr. Mac Koenig WBC 8.4 103/ul Normal 4.0-11.0 [facility] Comment on above: Performed By: #### T 4 #### [facility] [address] [place] [address] HEAD WO CONon [...] Normal soft tissues. Mastoids are clear. ORBITS: [place] lenses are surgically absent. PARANASAL SINUSES: Normal. IMPRESSION: 1. No acute intracranial abnormality. 2. 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 Electronically authenticated by: BERE FONTENOT Date: 2022-07-22 21:39 Normal [facility] Covid-19 PCR (CVDTBH)on SARS-CoV-2 (COVID-19) RNA CHIQUITA+probe Ql (Unsp spec) Not detected Normal NOT DETECTED [facility] Comment on above: Result Comment: When diagnostic [...] for this test is supported by the [employer] of [employer] and Human Service's declaration that [...] used). Performed By: #### L ACT #### [facility] [address] [place] [address] Dr. Mac Koenig D-DIMERon 07-22-2022 D-DIMER 1.76 mg/L FEU Critically high <=0.59 [facility] Comment on above: Performed By: #### D DIM #### [facility] [address] [place] [address] Dr. Mac Koenig D-DIMER COMMENTS SEE BELOW Normal [facility] Comment on above: Result Comment: Incr eases [...] hospitalization. Performed By: #### D DIM #### [facility] [address] [place] [address] Dr. Mac Koenig LACTATE/LACTIC ACIDon 2021 Lactate [Moles/Vol] 1.4 mmol/L Normal 0.4-1.9 [facility] Comment on above: Performed By: #### L ACT #### [facility] [address] [place] [address] Dr. Mac Koenig PROF 14(COMP METB)on 022 Albumin [Mass/Vol] 2.8 g/dL Critically low 3.4-5.0 [facility] Comment on above: Performed By: #### L ACT #### [facility] [address] [place] [address] Dr. Mac Koenig Albumin/Globulin [Mass ratio] 0.8 {ratio} Normal [facility] Comment on above: Performed By: #### L ACT #### [facility] [address] [place] [address] Dr. Mac Koenig ALP [Catalytic activity/Vol] 120 U/L Critically high 46-[address] [facility] Comment on above: Performed By: #### L ACT #### [facility] [address] [place] [address] Dr. Mac Koenig ALT [Catalytic activity/Vol] 41 U/L Normal 14-[address] [facility] Comment on above: Performed By: #### L ACT #### [facility] [address] [address] [address] Mac Koenig Anion gap [Moles/Vol] 6.2 mmol/L Normal [facility] Comment on above: Performed By: #### L ACT #### [facility] [address] [address] [address] Mac Koenig AST [Catalytic activity/Vol] 85 U/L Critically high 15-[address] [facility] Comment on above: Performed By: #### L ACT #### [facility] [address] [address] [address] Mac Koenig Bilirubin [Mass/Vol] 0.8 mg/dL Normal 0.2-1.[address] [facility] Comment on above: Performed By: #### L ACT #### [facility] [address] [address] [address] Mac Koenig Calcium [Mass/Vol] 8.8 mg/dL Normal 8.5-10.1 [facility] Comment on above: Performed By: #### L ACT #### [facility] [address] [address] [address] Mac Koenig Chloride [Moles/Vol] 99 mmol/L Normal 98-[address] [facility] Comment on above: Performed By: #### L ACT #### [facility] [address] [address] [address] Mac Koenig CO2 [Moles/Vol] 32.3 mmol/L Critically high 21.0-32.0 [facility] Comment on above: Performed By: #### L ACT #### [facility] [address] [address] [address] Mac Koenig Creatinine [Mass/Vol] 0.68 mg/dL Normal 0.55-1.[address] [facility] Comment on above: Performed By: #### L ACT #### [facility] [address] [address] [address] Mac Koenig EGFR-AF YEMENI >60 Normal >=60 [facility] Comment on above: Performed By: #### L ACT #### [facility] [address] [address] [address] Mac Koenig EGFR-NON AF YEMENI >60 Normal >=[address] [facility] Comment on above: Performed By: #### L ACT #### [facility] [address] [address] [address] Mac Koenig Globulin (S) [Mass/Vol] 3.6 g/dL Normal [facility] Comment on above: Performed By: #### L ACT #### [facility] [address] [address] [address] Mac Koenig Glucose [Mass/Vol] 118 mg/dL Critically high 74-[address] [facility] Comment on above: Performed By: #### L ACT #### [facility] [address] [address] [address] Mac Koenig Potassium [Moles/Vol] 2.5 mmol/L Critically low 3.5-5.[address] [facility] Comment on above: Performed By: #### L ACT #### [facility] [address] [address] [address] Mac Koenig Protein [Mass/Vol] 6.4 g/dL Normal 6.4-8.2 [facility] Comment on above: Performed By: #### L ACT #### [facility] [address] [address] [address] Mac Koenig Sodium [Moles/Vol] 133 mmol/L Critically low 136-145 [facility] Comment on above: Performed By: #### L ACT #### [facility] [address] [address] [address] Mac Koenig Urea nitrogen [Mass/Vol] 9.0 mg/dL Normal 7.0-18.[address] [facility] Comment on above: Performed By: #### L ACT #### [facility] [address] [address] [address] Mac Koenig Urea nitrogen/Creatinine [Mass ratio] 13.2 mg/mg Normal [facility] Comment on above: Performed By: #### L ACT #### [facility] [address] [place], [place] [address] Dr. Mac Koenig TROPONIN, HIGH SENSITIVITYon 07-22-2022 HSTROP 12.3 pg/mL Normal 4.0-51.[address] [facility] Comment on above: Result Comment: CUT- OFF POINTS HAVE BEEN ESTABLISHED BASED ON THE FOURTH UNIVERSAL DEFINITIONS OF MYOCARDIAL INFARCTION. THE UPPER REFERENCE LIMIT (URL) OF TROPONIN, DEFINED THE 99TH PERCENTILE OF cTnI DISTRIBUTION IN A REFERENCE POPULATION, HAS BEEN CONFIRMED THE DECISION THRESHOLD FOR [place] DIAGNOSIS. Performed By: #### L ACT #### [facility] [address], [place] [address] Dr. Mac Koenig XR CHEST 1 Von [...] by: PAPA COMER Date: 2022-07-22 21:[address] [facility] Encounters Encounter Date Encounter Type Care Provider Facility Start: 01-28-2023 End: 01-28-[address] ROSE DIAZ Facility:[facility] Start: 08-09-2022 End: 08-10-[address] ROSE DIAZ Facility:[facility] Start: 07-23-2022 End: 07-26-[address] ROSE DIAZ Facility:[facility] Payers Date Payer Category Payer Medicaid [id number] 1958 Medicare [id number] 1945 Unknown [id number] 1945 Unknown [id number] 1945 Unknown [id number] Summary Purpose Family History No Family History Records Found Advance Directives No Advanced Directives Records Found Additional Source Comments INFORMATION SOURCE (unrecogn ized section and content) DATE CREATED AUTHOR 02/01/2023 The Jeff maciel FOR RECORDS PERTAINING TO PATIENTS WHO ARE [...] BE BASED ON THE PRIMARY CLINICAL RECORDS. [facility] [employer] [facility]. provides no warranty or guarantee of the accuracy or completeness of information in this document.
[2024-05-04 16:43] LABS: Bilirubin Urine NEGATIVE (NEGATIVE); Blood Urine NEGATIVE (NEGATIVE); Clarity Urine CLEAR (CLEAR); Color Urine LT. YELLOW (YELLOW); Glucose Urine UA NEGATIVE (NEGATIVE); Ketones Urine NEGATIVE (NEGATIVE); Leukocyte Esterase Urine NEGATIVE (NEGATIVE); Nitrite Urine NEGATIVE (NEGATIVE); Protein Urine NEGATIVE (NEG/TRACE); Specific Gravity Urine 1.015 (1.005-1.025); Urobilinogen Urine 0.2 EU/dL (0.2-1.0)
[2024-05-04 17:19] LABS: Urine Microscopic Indicated NO
== END 2024-05-04 11:14 | disposition home or self-care (01) ==
LOC: LAB 11:13
PROVIDERS: Visit Provider Family Medicine
DX: J44.1 Chronic obstructive pulmonary disease with (acute) exacerbation (principal); R41.82 Altered mental status, unspecified; R53.81 Other malaise
CPT/HCPCS: 36415; 80053; 81003; 85025

== ENCOUNTER 2024-09-19 09:11 | Inpatient (IN) | payer MEDICARE, MEDICAID, SELFPAY ==
[2024-09-19] VITALS (77 sets, daily range): BP systolic 104–141; BP diastolic 51–88; PULSE 78–116; RESP 16; TEMP 36.2–37; O2SAT 87–100; BMI 29.2; BMI 24.0
--- NOTE | 2024-09-19 09:13 | ECG_ITS ---
The [facility] Test Date: 2024-09-19 Pat Name: MICHEAL DAVE Department: Room: - Gender: Female [employer]: : 1945 Requested By: [id number] Order Number: [id number] Reading MD: YEISON VALVERDE Measurements Intervals Closplint Rate: 101 P: -71 MD: 146 QRS: 47 QRSD: 72 T: 60 QT: 330 QTc: 388 Interpretive Statements 1220 Rapid atrial rhythm 8102 Low QRS voltage in chest leads 9140 abnormal rhythm ECG Compared to ECG 01/28/2023 13:40:25 Low QRS voltage now present Sinus bradycardia no longer present Electronically Signed On 09-20-2024 16:31:57 EST by YEISON VALVERDE
--- NOTE | 2024-09-19 09:13 | XR_ITS ---
The [address] [address] Patient Name: MICHEAL DAVE MRN: [id number] date: 1945 Sex: F Assigned Patient Location: ED.MAIN Current Patient Location: ED.MAIN Accession/Order Number: [id number] Exam Date: 09/19/2024 09:22 Report Date: 09/19/2024 09:43 At the request of: GENE GILLIAM Procedure: XR chest 1V EXAM: XR chest 1V HISTORY: sob COMPARISON: 01/28/2023 TECHNIQUE: AP portable FINDINGS: LUNGS: Minimal right and mild left basilar infiltrates. VASCULATURE: No increased pulmonary vasculature. PLEURA: No pneumothorax, effusion, or pleural thickening. CARDIAC: No cardiomegaly or cardiac silhouette abnormality. MEDIASTINUM: No visible mass or adenopathy. BONES: No fracture or visible bone lesion. OTHER: Negative. XR/XR chest 1V IMPRESSION: Bibasilar infiltrates, left greater than right Electronically authenticated by: PAPA BURK Date: 09/19/2024 09:43
[2024-09-19] MEDS: IPRATROPIUM/ALBUTEROL SULFATE 3 ML AMPUL.NEB IH ×4 (09:16→22:23)
--- NOTE | 2024-09-19 09:31 | RESP.RT ---
Pt wears 2L NC at home
--- OUTSIDE RECORDS SUMMARY | 2024-09-19 09:37 | XMS_ITS | CCD ---
Author Organization [facility] Care Team Providers Care Programmer Analyst Name Role Phone HOUSE, DR ROSE Primary [...] 01-31-2023 Episodic Other aftercare (1 source) Other snf (current) drug therapy; Translations: [OTH GROOVER AND TURNER CURRENT DRUG THERAPY] Onset: 01-31-2023 Episodic Substance-related [...] 01-28-2023 BASO # 0.1 103/ul Normal 0.0-0.1 [facility] Comment on above: Performed By: #### C BC #### [facility] [address] [place] [address] Dr. Mac Koenig Basophils/100 WBC (Bld) 0.7 % Normal 0.2-2.0 [facility] Comment on above: Performed By: #### C BC #### [facility] [address] [place] [address] Dr. Mac Koenig EO # 0.3 103/ul Normal 0.0-0.7 [facility] Comment on above: Performed By: #### C BC #### [facility] [address] [place] [address] Dr. Mac Koenig Eosinophils/100 WBC (Bld) 2.9 % Normal 0.9-7.0 [facility] Comment on above: Performed By: #### C BC #### [facility] [address] [place] [address] Dr. Mac Koenig Erythrocyte distribution width (RBC) [Ratio] 13.1 % Normal 11.0-15.0 [facility] Comment on above: Performed By: #### C BC #### [facility] [address] [place] [address] Dr. Mac Koenig Hematocrit (Bld) [Volume fraction] 42.7 % Normal 36.0-48.0 [facility] Comment on above: Performed By: #### C BC #### [facility] [address] [place] [address] Dr. Mac Koenig Hemoglobin (Bld) [Mass/Vol] 13.7 g/dL Normal 12.0-16.0 [facility] Comment on above: Performed By: #### C BC #### [facility] [address] [place] [address] Dr. Mac Koenig IG # 0.04 10e3/ul Critically high 0.00-0.[address] [facility] Comment on above: Performed By: #### C BC #### [facility] [address] [place] [address] Dr. Mac Koenig IG % 0.4 % Normal 0.0-0.5 [facility] Comment on above: Performed By: #### C BC #### [facility] [address] [place] [address] Dr. Mac Koenig LYMPH # 3.5 103/ul Normal 1.2-3.8 [facility] Comment on above: Performed By: #### C BC #### [facility] [address] [place] [address] Dr. Mac Koenig Lymphocytes/100 WBC (Bld) 35.1 % Normal 20.5-60.0 [facility] Comment on above: Performed By: #### C BC #### [facility] [address] [place] [address] Dr. Mac Koenig MANUAL DIFF REQ NO Normal [facility] Comment on above: Performed By: #### C BC #### [facility] [address] [place] [address] Dr. Mac Koenig MCH (RBC) [Entitic mass] 33.7 pg Normal 26.7-34.0 [facility] Comment on above: Performed By: #### C BC #### [facility] [address] [place] [address] Dr. Mac Koenig MCHC (RBC) [Mass/Vol] 32.1 g/dL Normal 29.9-35.2 [facility] Comment on above: Performed By: #### C BC #### [facility] [address] [place] [address] Dr. Mac Koenig MCV (RBC) [Entitic vol] 104.9 fL Critically high 81.0-99.0 [facility] Comment on above: Performed By: #### C BC #### [facility] [address] [place] [address] Dr. Mac Koenig MONO # 0.8 103/ul Normal 0.3-0.8 [facility] Comment on above: Performed By: #### C BC #### [facility] [address] [place] [address] Dr. Mac Koenig Monocytes/100 WBC (Bld) 7.6 % Normal 1.7-12.0 [facility] Comment on above: Performed By: #### C BC #### [facility] [address] [place] [address] Dr. Mac Koenig NEUT # 5.3 103/ul Normal 1.4-6.5 [facility] Comment on above: Performed By: #### C BC #### [facility] [address] [place] [address] Dr. Mac Koenig Neutrophils/100 WBC (Bld) 53.3 % Normal 43.0-75.0 [facility] Comment on above: Performed By: #### C BC #### [facility] [address] [place] [address] Dr. Mac Koenig Platelet mean volume (Bld) [Entitic vol] 12.7 fL Normal 9.5-13.5 [facility] Comment on above: Performed By: #### C BC #### [facility] [address] [place] [address] Dr. Mac Koenig PLT 320 103/ul Normal 150-450 [facility] Comment on above: Performed By: #### C BC #### [facility] [address] [place] [address] Dr. Mac Koenig RBC 4.07 106/ul Critically low 4.20-5.40 [facility] Comment on above: Performed By: #### C BC #### [facility] [address] [place] [address] Dr. Mac Koenig WBC 9.9 103/ul Normal 4.0-11.0 [facility] Comment on above: Performed By: #### C BC #### [facility] [address] [place] [address] Dr. Mac Koenig PROF 14(COMP METB)on 023 Albumin [Mass/Vol] 3.3 g/dL Critically low 3.4-5.0 [facility] Comment on above: Performed By: #### C BC #### [facility] [address] [place] [address] Dr. Mac Koenig Albumin/Globulin [Mass ratio] 0.8 {ratio} Normal [facility] Comment on above: Performed By: #### C BC #### [facility] [address] [place] [address] Dr. Mac Koenig ALP [Catalytic activity/Vol] 123 U/L Critically high 46-116 [facility] Comment on above: Performed By: #### C BC #### [facility] [address] [place] [address] Dr. Mac Koenig ALT [Catalytic activity/Vol] 22 U/L Normal 14-59 [facility] Comment on above: Performed By: #### C BC #### [facility] [address] [place] [address] Dr. Mac Koenig Anion gap [Moles/Vol] 8.9 mmol/L Normal [facility] Comment on above: Performed By: #### C BC #### [facility] [address] [address] [address] Mac Koenig AST [Catalytic activity/Vol] 13 U/L Critically low 15-37 [facility] Comment on above: Performed By: #### C BC #### [facility] [address] [address] [address] Mac Koenig Bilirubin [Mass/Vol] 0.3 mg/dL Normal 0.2-1.0 [facility] Comment on above: Performed By: #### C BC #### [facility] [address] [address] [address] Mac Koenig Calcium [Mass/Vol] 9.2 mg/dL Normal 8.5-10.1 [facility] Comment on above: Performed By: #### C BC #### [facility] [address] [address] [address] Mac Koenig Chloride [Moles/Vol] 105 mmol/L Normal 98-107 [facility] Comment on above: Performed By: #### C BC #### [facility] [address] [address] [address] Mac Koenig CO2 [Moles/Vol] 30.3 mmol/L Normal 21.0-32.0 [facility] Comment on above: Performed By: #### C BC #### [facility] [address] [address] [address] Mac Koenig Creatinine [Mass/Vol] 0.89 mg/dL Normal 0.55-1.02 [facility] Comment on above: Performed By: #### C BC #### [facility] [address] [address] [address] Mac Koenig EGFR-AF SINGAPOREAN >60 Normal >=60 [facility] Comment on above: Performed By: #### C BC #### [facility] [address] [address] [address] Mac Koenig EGFR-NON AF SINGAPOREAN >60 Normal >=60 [facility] Comment on above: Performed By: #### C BC #### [facility] [address] [address] [address] Mac Koenig Globulin (S) [Mass/Vol] 3.9 g/dL Normal [facility] Comment on above: Performed By: #### C BC #### [facility] [address] [address] [address] Mac Koenig Glucose [Mass/Vol] 81 mg/dL Normal 74-106 [facility] Comment on above: Performed By: #### C BC #### [facility] [address] [address] [address] Mac Koenig Potassium [Moles/Vol] 4.2 mmol/L Normal 3.5-5.1 [facility] Comment on above: Performed By: #### C BC #### [facility] [address] [address] [address] Mac Koenig Protein [Mass/Vol] 7.2 g/dL Normal 6.4-8.2 [facility] Comment on above: Performed By: #### C BC #### [facility] [address] [address] [address] Mac Koenig Sodium [Moles/Vol] 140 mmol/L Normal 136-145 [facility] Comment on above: Performed By: #### C BC #### [facility] [address] [address] [address] Mac Koenig Urea nitrogen [Mass/Vol] 14.0 mg/dL Normal 7.0-18.0 [facility] Comment on above: Performed By: #### C BC #### [facility] [address] [address] [address] Mac Koenig Urea nitrogen/Creatinine [Mass ratio] 15.7 mg/mg Normal [facility] Comment on above: Performed By: #### C BC #### [facility] [address] [place] [address] Dr. Mac Koenig TROPONIN, HIGH SENSITIVITYon 01-28-2023 HSTROP 6.4 pg/mL Normal 4.0-51.3 [facility] Comment on above: Result Comment: CUT- OFF POINTS HAVE BEEN ESTABLISHED BASED ON THE FOURTH UNIVERSAL DEFINITIONS OF MYOCARDIAL INFARCTION. THE UPPER REFERENCE LIMIT (URL) OF TROPONIN, DEFINED THE 99TH PERCENTILE OF cTnI DISTRIBUTION IN A REFERENCE POPULATION, HAS BEEN CONFIRMED THE DECISION THRESHOLD FOR IA DIAGNOSIS. Performed By: #### C BC #### [facility] [address] [place] [address] Dr. Mac Koenig XR CHEST 1 Von [...] ISAIAH MICHAELS Date: 2023-01-28 14:36 Normal [facility] BNPon 08-09-2022 Natriuretic peptide B (Bld) [Mass/Vol] 427.0 pg/mL Normal <=1,800.0 [facility] Comment on above: Performed By: #### L ACT #### [facility] [address] [place] [address] Dr. Mac Koenig CARDIAC KARINA 3-6on 2 CK [Catalytic activity/Vol] 30 U/L Normal 26-192 [facility] Comment on above: Performed By: #### T 4 #### [facility] [address] [place] [address] Dr. Mac Koenig CK.MB [Mass/Vol] 1.65 ng/mL Normal <=3.60 [facility] Comment on above: Performed By: #### T 4 #### [facility] [address] [place] [address] Dr. Mac Koenig HSTROP 8.3 pg/mL Normal 4.0-51.3 [facility] Comment on above: Result Comment: CUT- OFF POINTS HAVE BEEN ESTABLISHED BASED ON THE FOURTH UNIVERSAL DEFINITIONS OF MYOCARDIAL INFARCTION. THE UPPER REFERENCE LIMIT (URL) OF TROPONIN, DEFINED THE 99TH PERCENTILE OF cTnI DISTRIBUTION IN A REFERENCE POPULATION, HAS BEEN CONFIRMED THE DECISION THRESHOLD FOR IA DIAGNOSIS. Performed By: #### T 4 #### [facility] [address] [place] [address] Dr. Mac Koenig CBC AUTO DIFFon 08-09-2022 BASO # 0.1 103/ul Normal 0.0-0.1 [facility] Comment on above: Performed By: #### C BC #### [facility] [address] [place] [address] Dr. Mac Koenig Basophils/100 WBC (Bld) 1.0 % Normal 0.2-2.0 [facility] Comment on above: Performed By: #### C BC #### [facility] [address] [place] [address] Dr. Mac Koenig EO # 0.2 103/ul Normal 0.0-0.7 [facility] Comment on above: Performed By: #### C BC #### [facility] [address] [place] [address] Dr. Mac Koenig Eosinophils/100 WBC (Bld) 2.1 % Normal 0.9-7.0 [facility] Comment on above: Performed By: #### C BC #### [facility] [address] [place] [address] Dr. Mac Koenig Erythrocyte distribution width (RBC) [Ratio] 14.1 % Normal 11.0-15.0 [facility] Comment on above: Performed By: #### C BC #### [facility] [address] [place] [address] Dr. Mac Koenig Hematocrit (Bld) [Volume fraction] 45.2 % Normal 36.0-48.0 [facility] Comment on above: Performed By: #### C BC #### [facility] [address] [place] [address] Dr. Mac Koenig Hemoglobin (Bld) [Mass/Vol] 15.2 g/dL Normal 12.0-16.0 [facility] Comment on above: Performed By: #### C BC #### [facility] [address] [place] [address] Dr. Mac Koenig IG # 0.02 10e3/ul Normal 0.00-0.03 [facility] Comment on above: Performed By: #### C BC #### [facility] [address] [place] [address] Dr. Mac Koenig IG % 0.3 % Normal 0.0-0.5 [facility] Comment on above: Performed By: #### C BC #### [facility] [address] [place] [address] Dr. Mac Koenig LYMPH # 2.7 103/ul Normal 1.2-3.8 [facility] Comment on above: Performed By: #### C BC #### [facility] [address] [place] [address] Dr. Mac Koenig Lymphocytes/100 WBC (Bld) 34.9 % Normal 20.5-60.0 [facility] Comment on above: Performed By: #### C BC #### [facility] [address] [place] [address] Dr. Mac Koenig MANUAL DIFF REQ NO Normal [facility] Comment on above: Performed By: #### C BC #### [facility] [address] [place] [address] Dr. Mac Koenig MCH (RBC) [Entitic mass] 37.1 pg Critically high 26.7-34.0 [facility] Comment on above: Performed By: #### C BC #### [facility] [address] [place] [address] Dr. Mac Koenig MCHC (RBC) [Mass/Vol] 33.6 g/dL Normal 29.9-35.2 [facility] Comment on above: Performed By: #### C BC #### [facility] [address] [place] [address] Dr. Mac Koenig MCV (RBC) [Entitic vol] 110.2 fL Critically high 81.0-99.0 [facility] Comment on above: Performed By: #### C BC #### [facility] [address] [place] [address] Dr. Mac Koenig MONO # 0.5 103/ul Normal 0.3-0.8 [facility] Comment on above: Performed By: #### C BC #### [facility] [address] [place] [address] Dr. Mac Koenig Monocytes/100 WBC (Bld) 6.3 % Normal 1.7-12.0 [facility] Comment on above: Performed By: #### C BC #### [facility] [address] [place] [address] Dr. Mac Koenig NEUT # 4.3 103/ul Normal 1.4-6.5 [facility] Comment on above: Performed By: #### C BC #### [facility] [address] [place] [address] Dr. Mac Koenig Neutrophils/100 WBC (Bld) 55.4 % Normal 43.0-75.0 [facility] Comment on above: Performed By: #### C BC #### [facility] [address] [place] [address] Dr. Mac Koenig Platelet mean volume (Bld) [Entitic vol] 12.1 fL Normal 9.5-13.5 [facility] Comment on above: Performed By: #### C BC #### [facility] [address] [place] [address] Dr. Mac Koenig PLT 459 103/ul Critically high 150-450 [facility] Comment on above: Performed By: #### C BC #### [facility] [address] [place] [address] Dr. Mac Koenig RBC 4.10 106/ul Critically low 4.20-5.40 [facility] Comment on above: Performed By: #### C BC #### [facility] [address] [place] [address] Dr. Mac Koenig WBC 7.7 103/ul Normal 4.0-11.0 [facility] Comment on above: Performed By: #### C BC #### [facility] [address] [place] [address] Dr. Mac Koenig PROF 14(COMP METB)on 11-21-2 022 Albumin [Mass/Vol] 3.7 g/dL Normal 3.4-5.0 [facility] Comment on above: Performed By: #### L ACT #### [facility] [address] [place] [address] Dr. Mac Koenig Albumin/Globulin [Mass ratio] 0.8 {ratio} Normal [facility] Comment on above: Performed By: #### L ACT #### [facility] [address] [address] [address] Mac Koenig ALP [Catalytic activity/Vol] 142 U/L Critically high 46-116 [facility] Comment on above: Performed By: #### L ACT #### [facility] [address] [place] [address] Dr. Mac Koenig ALT [Catalytic activity/Vol] 32 U/L Normal 14-59 [facility] Comment on above: Performed By: #### L ACT #### [facility] [address] [place] [address] Dr. Mac Koenig Anion gap [Moles/Vol] 8.7 mmol/L Normal [facility] Comment on above: Performed By: #### L ACT #### [facility] [address] [place] [address] Dr. Mac Koenig AST [Catalytic activity/Vol] 63 U/L Critically high 15-37 [facility] Comment on above: Performed By: #### L ACT #### [facility] [address] [place] [address] Dr. Mac Koenig Bilirubin [Mass/Vol] 0.4 mg/dL Normal 0.2-1.0 [facility] Comment on above: Performed By: #### L ACT #### [facility] [address] [place] [address] Dr. Mac Koenig Calcium [Mass/Vol] 10.0 mg/dL Normal 8.5-10.1 [facility] Comment on above: Performed By: #### L ACT #### [facility] [address] [place] [address] Dr. Mac Koenig Chloride [Moles/Vol] 99 mmol/L Normal 98-107 [facility] Comment on above: Performed By: #### L ACT #### [facility] [address] [address] [address] Mac Koenig CO2 [Moles/Vol] 31.5 mmol/L Normal 21.0-32.0 [facility] Comment on above: Performed By: #### L ACT #### [facility] [address] [address] [address] Mac Koenig Creatinine [Mass/Vol] 0.73 mg/dL Normal 0.55-1.02 [facility] Comment on above: Performed By: #### L ACT #### [facility] [address] [address] [address] Mac Koenig EGFR-AF SINGAPOREAN >60 Normal >=60 [facility] Comment on above: Performed By: #### L ACT #### [facility] [address] [place] [address] Dr. Mac Koenig EGFR-NON AF SINGAPOREAN >60 Normal >=60 [facility] Comment on above: Performed By: #### L ACT #### [facility] [address] [place] [address] Dr. Mac Koenig Globulin (S) [Mass/Vol] 4.6 g/dL Normal [facility] Comment on above: Performed By: #### L ACT #### [facility] [address] [place] [address] Dr. Mac Koenig Glucose [Mass/Vol] 110 mg/dL Critically high 74-106 [facility] Comment on above: Performed By: #### L ACT #### [facility] [address] [place] [address] Dr. Mac Koenig Potassium [Moles/Vol] 4.2 mmol/L Normal 3.5-5.1 [facility] Comment on above: Performed By: #### L ACT #### [facility] [address] [place] [address] Dr. Mac Koenig Protein [Mass/Vol] 8.3 g/dL Critically high 6.4-8.2 [facility] Comment on above: Performed By: #### L ACT #### [facility] [address] [address] [address] Mac Koenig Sodium [Moles/Vol] 135 mmol/L Critically low 136-145 [facility] Comment on above: Performed By: #### L ACT #### [facility] [address] [address] [address] Mac Koenig Urea nitrogen [Mass/Vol] 10.0 mg/dL Normal 7.0-18.0 [facility] Comment on above: Performed By: #### L ACT #### [facility] [address] [address] [address] Mac Koenig Urea nitrogen/Creatinine [Mass ratio] 13.7 mg/mg Normal [facility] Comment on above: Performed By: #### L ACT #### [facility] [address] [address] [address] Mac Koenig TROPONIN, HIGH SENSITIVITYon 08-09-2022 HSTROP 9.1 pg/mL Normal 4.0-51.3 [facility] Comment on above: Result Comment: CUT- OFF POINTS HAVE BEEN ESTABLISHED BASED ON THE FOURTH UNIVERSAL DEFINITIONS OF MYOCARDIAL INFARCTION. THE UPPER REFERENCE LIMIT (URL) OF TROPONIN, DEFINED THE 99TH PERCENTILE OF cTnI DISTRIBUTION IN A REFERENCE POPULATION, HAS BEEN CONFIRMED THE DECISION THRESHOLD FOR IA DIAGNOSIS. Performed By: #### L ACT #### [facility] [address] [place] [address] Dr. Mac Koenig XR CHEST 1 Von 08-09-2022 XR CHEST 1 V ONE-VIEW CHEST RADIOGRAPH, 08/09/2022 5:01 PM EST COMPARISON: Chest, 07/22/2022. CLINICAL HISTORY: CHEST PAIN, UNSPECIFIED Findings and impression: 1. No acute cardiopulmonary disease. 2. Normal heart size. 3. No acute osseous abnormality. Electronically authenticated by: Aida BLAKE Date: 2022-08-09 17:54 Normal [facility] CBC AUTO DIFFon 07-26-2022 BASO # 0.0 103/ul Normal 0.0-0.1 [facility] Comment on above: Performed By: #### C BC #### [facility] [address] [address] [address] Mac Koenig Basophils/100 WBC (Bld) 0.3 % Normal 0.2-2.0 [facility] Comment on above: Performed By: #### C BC #### [facility] [address] [place] [address] Dr. Mac Koenig EO # 0.1 103/ul Normal 0.0-0.7 [facility] Comment on above: Performed By: #### C BC #### [facility] [address] [place] [address] Dr. Mac Koenig Eosinophils/100 WBC (Bld) 0.5 % Critically low 0.9-7.0 [facility] Comment on above: Performed By: #### C BC #### [facility] [address] [place] [address] Dr. Mac Koenig Erythrocyte distribution width (RBC) [Ratio] 13.5 % Normal 11.0-15.0 [facility] Comment on above: Performed By: #### C BC #### [facility] [address] [place] [address] Dr. Mac Koenig Hematocrit (Bld) [Volume fraction] 35.5 % Critically low 36.0-48.0 [facility] Comment on above: Performed By: #### C BC #### [facility] [address] [place] [address] Dr. Mac Koenig Hemoglobin (Bld) [Mass/Vol] 12.2 g/dL Normal 12.0-16.0 [facility] Comment on above: Performed By: #### C BC #### [facility] [address] [place] [address] Dr. Mac Koenig IG # 0.03 10e3/ul Normal 0.00-0.03 [facility] Comment on above: Performed By: #### C BC #### [facility] [address] [place] [address] Dr. Mac Koenig IG % 0.3 % Normal 0.0-0.5 [facility] Comment on above: Performed By: #### C BC #### [facility] [address] [place] [address] Dr. Mac Koenig LYMPH # 1.4 103/ul Normal 1.2-3.8 [facility] Comment on above: Performed By: #### C BC #### [facility] [address] [place] [address] Dr. Mac Koenig Lymphocytes/100 WBC (Bld) 13.8 % Critically low 20.5-60.0 [facility] Comment on above: Performed By: #### C BC #### [facility] [address] [place] [address] Dr. Mac Koenig MANUAL DIFF REQ NO Normal [facility] Comment on above: Performed By: #### C BC #### [facility] [address] [place] [address] Dr. Mac Koenig MCH (RBC) [Entitic mass] 36.9 pg Critically high 26.7-34.0 [facility] Comment on above: Performed By: #### C BC #### [facility] [address] [place] [address] Dr. Mac Koenig MCHC (RBC) [Mass/Vol] 34.4 g/dL Normal 29.9-35.2 [facility] Comment on above: Performed By: #### C BC #### [facility] [address] [place] [address] Dr. Mac Koenig MCV (RBC) [Entitic vol] 107.3 fL Critically high 81.0-99.0 [facility] Comment on above: Performed By: #### C BC #### [facility] [address] [place] [address] Dr. Mac Koenig MONO # 0.6 103/ul Normal 0.3-0.8 [facility] Comment on above: Performed By: #### C BC #### [facility] [address] [place] [address] Dr. Mac Koenig Monocytes/100 WBC (Bld) 5.8 % Normal 1.7-12.0 [facility] Comment on above: Performed By: #### C BC #### [facility] [address] [place] [address] Dr. Mac Koenig NEUT # 8.0 103/ul Critically high 1.4-6.5 [facility] Comment on above: Performed By: #### C BC #### [facility] [address] [address] [address] Mac Koenig Neutrophils/100 WBC (Bld) 79.3 % Critically high 43.0-75.0 [facility] Comment on above: Performed By: #### C BC #### [facility] [address] [address] [address] Mac Koenig Platelet mean volume (Bld) [Entitic vol] 12.9 fL Normal 9.5-13.5 [facility] Comment on above: Performed By: #### C BC #### [facility] [address] [place] [address] Dr. Mac Koenig PLT 199 103/ul Normal 150-450 [facility] Comment on above: Performed By: #### C BC #### [facility] [address] [place] [address] Dr. Mac Koenig RBC 3.31 106/ul Critically low 4.20-5.40 [facility] Comment on above: Performed By: #### C BC #### [facility] [address] [place] [address] Dr. Mac Koenig WBC 10.0 103/ul Normal 4.0-11.0 [facility] Comment on above: Performed By: #### C BC #### [facility] [address] [place] [address] Dr. Mac Koenig ECHOCARDIO M/2D COMPLETEon 1 09-25-2021 ECHOCARDIO M/2D COMPLETE Patient: MICHEAL DAVE Exam Date: 07/26/2022 : 1945 Gender:F Ordering : DR RADHA PETERS . Admission #: [id number] Family : DR ROSE DIAZ D.O. Order #: [id number] CLICK HERE TO VIEW EXAM ECHOCARDIOGRAM REPORT [...] (Peak Sancho): 2.03 cm2, 2.03 cm2 Deceleration [place]: 1.52 m/s2 Pressure Half-Time: 594.74 ms Peak [...] Sofia M.D. on 07/27/2022 at 15:37 Normal [facility] PROF 14(COMP METB)on 022 Albumin [Mass/Vol] 2.4 g/dL Critically low 3.4-5.0 [facility] Comment on above: Performed By: #### C MP #### [facility] [address] [place] [address] Dr. Mac Koenig Albumin/Globulin [Mass ratio] 0.6 {ratio} Normal [facility] Comment on above: Performed By: #### C MP #### [facility] [address] [place] [address] Dr. Mac Koenig ALP [Catalytic activity/Vol] 140 U/L Critically high 46-116 [facility] Comment on above: Performed By: #### C MP #### [facility] [address] [place] [address] Dr. Mac Koenig ALT [Catalytic activity/Vol] 54 U/L Normal 14-59 [facility] Comment on above: Performed By: #### C MP #### [facility] [address] [place] [address] Dr. Mac Koenig Anion gap [Moles/Vol] 11.1 mmol/L Normal [facility] Comment on above: Performed By: #### C MP #### [facility] [address] [address] [address] Mac Koenig AST [Catalytic activity/Vol] 37 U/L Normal 15-37 [facility] Comment on above: Performed By: #### C MP #### [facility] [address] [address] [address] Mac Koenig Bilirubin [Mass/Vol] 0.6 mg/dL Normal 0.2-1.0 [facility] Comment on above: Performed By: #### C MP #### [facility] [address] [address] [address] Mac Koenig Calcium [Mass/Vol] 8.5 mg/dL Normal 8.5-10.1 [facility] Comment on above: Performed By: #### C MP #### [facility] [address] [address] [address] Mac Koenig Chloride [Moles/Vol] 99 mmol/L Normal 98-107 [facility] Comment on above: Performed By: #### C MP #### [facility] [address] [address] [address] Mac Koenig CO2 [Moles/Vol] 27.5 mmol/L Normal 21.0-32.0 [facility] Comment on above: Performed By: #### C MP #### [facility] [address] [address] [address] Mac Koenig Creatinine [Mass/Vol] 0.57 mg/dL Normal 0.55-1.02 [facility] Comment on above: Performed By: #### C MP #### [facility] [address] [address] [address] Mac Koenig EGFR-AF [place]INGAPOREAN >60 Normal >=60 [facility] Comment on above: Performed By: #### C MP #### [facility] [address] [address] [address] Mac Koenig EGFR-NON AF [place]ING[place]AN >60 Normal >=60 [facility] Comment on above: Performed By: #### C MP #### [facility] [address] [address] [address] Mac Koenig Globulin (S) [Mass/Vol] 3.7 g/dL Normal [facility] Comment on above: Performed By: #### C MP #### [facility] [address] [address] [address] Mac Koenig Glucose [Mass/Vol] 96 mg/dL Normal 74-106 [facility] Comment on above: Performed By: #### C MP #### [facility] [address] [address] [address] Mac Koenig Potassium [Moles/Vol] 3.6 mmol/L Normal 3.5-5.1 [facility] Comment on above: Performed By: #### C MP #### [facility] [address] [address] [address] Mac Koenig Protein [Mass/Vol] 6.1 g/dL Critically low 6.4-8.2 [facility] Comment on above: Performed By: #### C MP #### [facility] [address] [place] [address] Dr. Mac Koenig Sodium [Moles/Vol] 134 mmol/L Critically low 136-145 [facility] Comment on above: Performed By: #### C MP #### [facility] [address] [place] [address] Dr. Mac Koenig Urea nitrogen [Mass/Vol] 7.0 mg/dL Normal 7.0-18.0 [facility] Comment on above: Performed By: #### C MP #### [facility] [address] [place] [address] Dr. Mac Koenig Urea nitrogen/Creatinine [Mass ratio] 12.3 mg/mg Normal [facility] Comment on above: Performed By: #### C MP #### [facility] [address] [place] [address] Dr. Mac Koenig CBC AUTO DIFFon 07-25-2022 BASO # 0.0 103/ul Normal 0.0-0.1 [facility] Comment on above: Performed By: #### C BC #### [facility] [address] [place] [address] Dr. Mac Koenig Basophils/100 WBC (Bld) 0.5 % Normal 0.2-2.0 [facility] Comment on above: Performed By: #### C BC #### [facility] [address] [place] [address] Dr. Mac Koenig EO # 0.1 103/ul Normal 0.0-0.7 [facility] Comment on above: Performed By: #### C BC #### [facility] [address] [place] [address] Dr. Mac Koenig Eosinophils/100 WBC (Bld) 1.0 % Normal 0.9-7.0 [facility] Comment on above: Performed By: #### C BC #### [facility] [address] [place] [address] Dr. Mac Koenig Erythrocyte distribution width (RBC) [Ratio] 13.7 % Normal 11.0-15.0 [facility] Comment on above: Performed By: #### C BC #### [facility] [address] [place] [address] Dr. Mac Koenig Hematocrit (Bld) [Volume fraction] 34.7 % Critically low 36.0-48.0 [facility] Comment on above: Performed By: #### C BC #### [facility] [address] [place] [address] Dr. Mac Koenig Hemoglobin (Bld) [Mass/Vol] 11.7 g/dL Critically low 12.0-16.0 [facility] Comment on above: Performed By: #### C BC #### [facility] [address] [place] [address] Dr. Mac Koenig IG # 0.02 10e3/ul Normal 0.00-0.03 [facility] Comment on above: Performed By: #### C BC #### [facility] [address] [place] [address] Dr. Mac Koenig IG % 0.3 % Normal 0.0-0.5 [facility] Comment on above: Performed By: #### C BC #### [facility] [address] [address] [address] Mac Koenig LYMPH # 1.2 103/ul Normal 1.2-3.8 [facility] Comment on above: Performed By: #### C BC #### [facility] [address] [address] [address] Mac Koenig Lymphocytes/100 WBC (Bld) 15.6 % Critically low 20.5-60.0 [facility] Comment on above: Performed By: #### C BC #### [facility] [address] [address] [address] Mac Koenig MANUAL DIFF REQ NO Normal [facility] Comment on above: Performed By: #### C BC #### [facility] [address] [place] [address] Dr. Mac Koenig MCH (RBC) [Entitic mass] 36.8 pg Critically high 26.7-34.0 [facility] Comment on above: Performed By: #### C BC #### [facility] [address] [place] [address] Dr. Mac Koenig MCHC (RBC) [Mass/Vol] 33.7 g/dL Normal 29.9-35.2 [facility] Comment on above: Performed By: #### C BC #### [facility] [address] [place] [address] Dr. Mac Koenig MCV (RBC) [Entitic vol] 109.1 fL Critically high 81.0-99.0 [facility] Comment on above: Performed By: #### C BC #### [facility] [address] [place] [address] Dr. Mac Koenig MONO # 0.5 103/ul Normal 0.3-0.8 [facility] Comment on above: Performed By: #### C BC #### [facility] [address] [place] [address] Dr. Mac Koenig Monocytes/100 WBC (Bld) 5.9 % Normal 1.7-12.0 [facility] Comment on above: Performed By: #### C BC #### [facility] [address] [address] [address] Mac Koenig NEUT # 6.0 103/ul Normal 1.4-6.5 [facility] Comment on above: Performed By: #### C BC #### [facility] [address] [place] [address] Dr. Mac Koenig Neutrophils/100 WBC (Bld) 76.7 % Critically high 43.0-75.0 [facility] Comment on above: Performed By: #### C BC #### [facility] [address] [place] [address] Dr. Mac Koenig Platelet mean volume (Bld) [Entitic vol] 12.4 fL Normal 9.5-13.5 [facility] Comment on above: Performed By: #### C BC #### [facility] [address] [place] [address] Dr. Mac Koenig PLT 166 103/ul Normal 150-450 [facility] Comment on above: Performed By: #### C BC #### [facility] [address] [place] [address] Dr. Mac Koenig RBC 3.18 106/ul Critically low 4.20-5.40 [facility] Comment on above: Performed By: #### C BC #### [facility] [address] [place] [address] Dr. Mac Koenig WBC 7.8 103/ul Normal 4.0-11.0 [facility] Comment on above: Performed By: #### C BC #### [facility] [address] [place] [address] Dr. Mac Koenig PROF 14(COMP METB)on 022 Albumin [Mass/Vol] 1.9 g/dL Critically low 3.4-5.0 [facility] Comment on above: Performed By: #### T 4 #### [facility] [address] [place] [address] Dr. Mac Koenig Albumin/Globulin [Mass ratio] 0.5 {ratio} Normal [facility] Comment on above: Performed By: #### T 4 #### [facility] [address] [place], [place] [id number] Dr. Mac Koenig ALP [Catalytic activity/Vol] 153 U/L Critically high 46-116 [facility] Comment on above: Performed By: #### T 4 #### [facility] [address] [place] [address] Dr. Mac Koenig ALT [Catalytic activity/Vol] 63 U/L Critically high 14-59 [facility] Comment on above: Performed By: #### T 4 #### [facility] [address] [address] [address] Mac Koenig Anion gap [Moles/Vol] 7.0 mmol/L Normal [facility] Comment on above: Performed By: #### T 4 #### [facility] [address] [place] [address] Dr. aMc Koenig AST [Catalytic activity/Vol] 44 U/L Critically high 15-37 [facility] Comment on above: Performed By: #### T 4 #### [facility] [address] [place] [address] Dr. Mac Koenig Bilirubin [Mass/Vol] 0.6 mg/dL Normal 0.2-1.0 [facility] Comment on above: Performed By: #### T 4 #### [facility] [address] [place] [address] Dr. Mac Koenig Calcium [Mass/Vol] 8.7 mg/dL Normal 8.5-10.1 [facility] Comment on above: Performed By: #### T 4 #### [facility] [address] [place] [address] Dr. Mac Koenig Chloride [Moles/Vol] 104 mmol/L Normal 98-107 [facility] Comment on above: Performed By: #### T 4 #### [facility] [address] [place] [address] Dr. Mac Koenig CO2 [Moles/Vol] 25.4 mmol/L Normal 21.0-32.0 [facility] Comment on above: Performed By: #### T 4 #### [facility] [address] [place] [address] Dr. Mac Koenig Creatinine [Mass/Vol] 0.74 mg/dL Normal 0.55-1.02 [facility] Comment on above: Performed By: #### T 4 #### [facility] [address] [address] [address] Mac Koenig EGFR-AF [place]AN >60 Normal >=60 [facility] Comment on above: Performed By: #### T 4 #### [facility] [address] [address] [address] Mac Koenig EGFR-NON AF [place]AN >60 Normal >=60 [facility] Comment on above: Performed By: #### T 4 #### [facility] [address] [address] [address] Mac Koenig Globulin (S) [Mass/Vol] 3.5 g/dL Normal [facility] Comment on above: Performed By: #### T 4 #### [facility] [address] [place] [address] Dr. Mac Koenig Glucose [Mass/Vol] 80 mg/dL Normal 74-106 [facility] Comment on above: Performed By: #### T 4 #### [facility] [address] [place] [address] Dr. Mac Koenig Potassium [Moles/Vol] 3.4 mmol/L Critically low 3.5-5.1 [facility] Comment on above: Performed By: #### T 4 #### [facility] [address] [place] [address] Dr. Mac Koenig Protein [Mass/Vol] 5.4 g/dL Critically low 6.4-8.2 [facility] Comment on above: Performed By: #### T 4 #### [facility] [address] [place] [address] Dr. Mac Koenig Sodium [Moles/Vol] 133 mmol/L Critically low 136-145 [facility] Comment on above: Performed By: #### T 4 #### [facility] [address] [place] [address] Dr. Mac Koenig Urea nitrogen [Mass/Vol] 12.0 mg/dL Normal 7.0-18.0 [facility] Comment on above: Performed By: #### T 4 #### [facility] [address] [address] [address] Mac Koenig Urea nitrogen/Creatinine [Mass ratio] 16.2 mg/mg Normal [facility] Comment on above: Performed By: #### T 4 #### [facility] [address] [place] [address] Dr. Mac Koenig CBC AUTO DIFFon 07-24-2022 BASO # 0.1 103/ul Normal 0.0-0.1 [facility] Comment on above: Performed By: #### T 4 #### [facility] [address] [place] [address] Dr. Mac Koenig Basophils/100 WBC (Bld) 0.6 % Normal 0.2-2.0 [facility] Comment on above: Performed By: #### T 4 #### [facility] [address] [place] [address] Dr. Mac Koenig EO # 0.0 103/ul Normal 0.0-0.7 [facility] Comment on above: Performed By: #### T 4 #### [facility] [address] [place] [address] Dr. Mac Koenig Eosinophils/100 WBC (Bld) 0.1 % Critically low 0.9-7.0 [facility] Comment on above: Performed By: #### T 4 #### [facility] [address] [place] [address] Dr. Mac Koenig Erythrocyte distribution width (RBC) [Ratio] 13.6 % Normal 11.0-15.0 [facility] Comment on above: Performed By: #### T 4 #### [facility] [address] [place] [address] Dr. Mac Koenig Hematocrit (Bld) [Volume fraction] 34.6 % Critically low 36.0-48.0 [facility] Comment on above: Performed By: #### T 4 #### [facility] [address] [place] [address] Dr. Mac Koenig Hemoglobin (Bld) [Mass/Vol] 11.7 g/dL Critically low 12.0-16.0 [facility] Comment on above: Performed By: #### T 4 #### [facility] [address] [address] [address] Mac Koenig IG # 0.04 10e3/ul Critically high 0.00-0.[address] [facility] Comment on above: Performed By: #### T 4 #### [facility] [address] [address] [address] Mac Koenig IG % 0.4 % Normal 0.0-0.5 [facility] Comment on above: Performed By: #### T 4 #### [facility] [address] [address] [address] Mac Koenig LYMPH # 1.1 103/ul Critically low 1.2-3.8 [facility] Comment on above: Performed By: #### T 4 #### [facility] [address] [place] [address] Dr. Mac Koenig Lymphocytes/100 WBC (Bld) 10.1 % Critically low 20.5-60.0 [facility] Comment on above: Performed By: #### T 4 #### [facility] [address] [address] [address] Mac Koenig MANUAL DIFF REQ NO Normal [facility] Comment on above: Performed By: #### T 4 #### [facility] [address] [place] [address] Dr. Mac Koenig MCH (RBC) [Entitic mass] 36.7 pg Critically high 26.7-34.0 [facility] Comment on above: Performed By: #### T 4 #### [facility] [address] [address] [address] Mac Koenig MCHC (RBC) [Mass/Vol] 33.8 g/dL Normal 29.9-35.2 [facility] Comment on above: Performed By: #### T 4 #### [facility] [address] [place] [address] Dr. Mac Koenig MCV (RBC) [Entitic vol] 108.5 fL Critically high 81.0-99.0 [facility] Comment on above: Performed By: #### T 4 #### [facility] [address] [address] [address] Mac Koenig MONO # 0.7 103/ul Normal 0.3-0.8 [facility] Comment on above: Performed By: #### T 4 #### [facility] [address] [address] [address] Mac Koenig Monocytes/100 WBC (Bld) 6.5 % Normal 1.7-12.0 [facility] Comment on above: Performed By: #### T 4 #### [facility] [address] [place] [address] Dr. Mac Koenig NEUT # 8.6 103/ul Critically high 1.4-6.5 [facility] Comment on above: Performed By: #### T 4 #### [facility] [address] [place] [address] Dr. Mac Koenig Neutrophils/100 WBC (Bld) 82.3 % Critically high 43.0-75.0 [facility] Comment on above: Performed By: #### T 4 #### [facility] [address] [place] [address] Dr. Mac Koenig Platelet mean volume (Bld) [Entitic vol] 12.7 fL Normal 9.5-13.5 [facility] Comment on above: Performed By: #### T 4 #### [facility] [address] [place] [address] Dr. Mac Koenig PLT 204 103/ul Normal 150-450 [facility] Comment on above: Performed By: #### T 4 #### [facility] [address] [place] [address] Dr. Mac Koenig RBC 3.19 106/ul Critically low 4.20-5.40 [facility] Comment on above: Performed By: #### T 4 #### [facility] [address] [place] [address] Dr. Mac Koenig WBC 10.4 103/ul Normal 4.0-11.0 [facility] Comment on above: Performed By: #### T 4 #### [facility] [address] [place] [address] Dr. Mac Koenig FREE T3on 07-24-2022 FREE T3 1.50 pg/mlL Critically low 2.18-3.98 [facility] Comment on above: Performed By: #### C BC #### [facility] [address] [place] [address] Dr. Mac Koenig PROF 14(COMP METB)on 022 Albumin [Mass/Vol] 2.4 g/dL Critically low 3.4-5.0 [facility] Comment on above: Performed By: #### T 4 #### [facility] [address] [place] [address] Dr. Mac Koenig Albumin/Globulin [Mass ratio] 0.7 {ratio} Normal [facility] Comment on above: Performed By: #### T 4 #### [facility] [address] [place] [address] Dr. Mac Koenig ALP [Catalytic activity/Vol] 195 U/L Critically high 46-116 [facility] Comment on above: Performed By: #### T 4 #### [facility] [address] [place] [address] Dr. Mac Koenig ALT [Catalytic activity/Vol] 97 U/L Critically high 14-59 [facility] Comment on above: Performed By: #### T 4 #### [facility] [address] [place] [address] Dr. Mac Koenig Anion gap [Moles/Vol] 6.2 mmol/L Normal [facility] Comment on above: Performed By: #### T 4 #### [facility] [address] [place] [address] Dr. Mac Koenig AST [Catalytic activity/Vol] 93 U/L Critically high 15-37 [facility] Comment on above: Performed By: #### T 4 #### [facility] [address] [place] [address] Dr. Mac Koenig Bilirubin [Mass/Vol] 1.2 mg/dL Critically high 0.2-1.0 [facility] Comment on above: Performed By: #### T 4 #### [facility] [address] [address] [address] Mac Koenig Calcium [Mass/Vol] 8.7 mg/dL Normal 8.5-10.1 [facility] Comment on above: Performed By: #### T 4 #### [facility] [address] [address] [address] Mac Koenig Chloride [Moles/Vol] 100 mmol/L Normal 98-107 [facility] Comment on above: Performed By: #### T 4 #### [facility] [address] [place] [address] Dr. Mac Koenig CO2 [Moles/Vol] 31.4 mmol/L Normal 21.0-32.0 [facility] Comment on above: Performed By: #### T 4 #### [facility] [address] [place] [address] Dr. Mac Koenig Creatinine [Mass/Vol] 0.72 mg/dL Normal 0.55-1.02 [facility] Comment on above: Performed By: #### T 4 #### [facility] [address] [place] [address] Dr. Mac Koenig EGFR-AF [place]AN >60 Normal >=60 [facility] Comment on above: Performed By: #### T 4 #### [facility] [address] [place] [address] Dr. Mac Koenig EGFR-NON AF [place]AN >60 Normal >=60 [facility] Comment on above: Performed By: #### T 4 #### [facility] [address] [place] [address] Dr. Mac Koenig Globulin (S) [Mass/Vol] 3.5 g/dL Normal [facility] Comment on above: Performed By: #### T 4 #### [facility] [address] [place] [address] Dr. Mac Koenig Glucose [Mass/Vol] 94 mg/dL Normal 74-106 [facility] Comment on above: Performed By: #### T 4 #### [facility] [address] [place] [address] Dr. Mac Koenig Potassium [Moles/Vol] 3.6 mmol/L Normal 3.5-5.1 [facility] Comment on above: Performed By: #### T 4 #### [facility] [address] [place] [address] Dr. Mac Koenig Protein [Mass/Vol] 5.9 g/dL Critically low 6.4-8.2 Th [facility] Comment on above: Performed By: #### T 4 #### [facility] [address] [place] [address] Dr. Mac Koenig Sodium [Moles/Vol] 134 mmol/L Critically low 136-145 Th [facility] Comment on above: Performed By: #### T 4 #### [facility] [address] [place] [address] Dr. Mac Koenig Urea nitrogen [Mass/Vol] 8.0 mg/dL Normal 7.0-18.0 [facility] Comment on above: Performed By: #### T 4 #### [facility] [address] [place] [address] Dr. Mac Koenig Urea nitrogen/Creatinine [Mass ratio] 11.1 mg/mg Normal [facility] Comment on above: Performed By: #### T 4 #### [facility] [address] [place] [address] Dr. Mac Koenig T4on 07-24-2022 T4 [Mass/Vol] 11.00 ug/dL Normal 4.80-13.90 [facility] Comment on above: Performed By: #### T 4 #### [facility] [address] [place] [address] Dr. Mac Koenig TSHon 07-24-2022 TSH 0.596 uIU/mL Normal 0.358-3.740 [facility] Comment on above: Performed By: #### C BC #### [facility] [address] [place] [address] ABD/PELV W CONon [...] by: TISH JURADO Date: 2022-07-23 05:08 Normal [facility] CTA CHEST WO W CONon 022 CTA CHEST WO W CON EXAMINATION: CTA [facility] ST WO W CON, 07/23/2022 1:39 [...] TISH JURADO Date: 2022-07-23 05:01 Normal [facility] ER URINE PROFILEon 2 Bilirubin Ql (U) Negative Normal NEGATIVE [facility] Comment on above: Performed By: #### T 4 #### [facility] [address] [place] [address] Dr. Mac Koenig Clarity (U) CLEAR Normal CLEAR [facility] Comment on above: Performed By: #### T 4 #### [facility] [address] [place] [address] Dr. Mac Koenig Color (U) LT. YELLOW Normal YELLOW [facility] Comment on above: Performed By: #### T 4 #### [facility] [address] [place] [address] Dr. Mac DEAN A micrscopic examination will be performed if indicated. Normal [facility] Comment on above: Performed By: #### T 4 #### [facility] [address] [place] [address] Dr. Mac Koenig Glucose Ql (U) Negative Normal NEGATIVE [facility] Comment on above: Performed By: #### T 4 #### [facility] [address] [place] [address] Dr. Mac Koenig Hemoglobin Ql (U) Negative Normal NEGATIVE The [facility] Comment on above: Performed By: #### T 4 #### [facility] [address] [place] [address] Dr. Mac Koenig Ketones Ql (U) Negative Normal NEGATIVE [facility] Comment on above: Performed By: #### T 4 #### [facility] [address] [place] [address] Dr. Mac Koenig LEUKOCYTES Negative Normal NEGATIVE [facility] Comment on above: Performed By: #### T 4 #### [facility] [address] [place] [address] Dr. Mac Koenig Nitrite Ql (U) Negative Normal NEGATIVE [facility] Comment on above: Performed By: #### T 4 #### [facility] [address] [place] [address] Dr. Mac Koenig pH (U) 6.0 [pH] Normal 5-9 [facility] Comment on above: Performed By: #### T 4 #### [facility] [address] [place] [address] Dr. Mac Koenig SPEC GRAVITY <=1.005 Abnormal 1.005-<=1.025 [facility] Comment on above: Performed By: #### T 4 #### [facility] [address] [place] [address] Dr. Mac Koenig UA PROTEIN Negative Normal NEGATIVE/ TRACE [facility] Comment on above: Performed By: #### T 4 #### [facility] [address] [place] [address] Dr. Mac Koenig UR MICRO IND NOT INDICATED Normal [facility] Comment on above: Performed By: #### T 4 #### [facility] [address] [place] [address] Dr. Mac Koenig Urobilinogen Qn (U) 1.0 {Jd'U}/dL Normal 0.2 - 1. 0 [facility] Comment on above: Performed By: #### T 4 #### [facility] [address] [place] [address] Dr. Mac Koenig LACTATE/LACTIC ACIDon 2021 Lactate [Moles/Vol] 3.1 mmol/L Critically high 0.4-1.9 [facility] Comment on above: Performed By: #### L ACT #### [facility] [address] [place] [address] Dr. Mac Koenig Lactate [Moles/Vol] 3.7 mmol/L Critically high 0.4-1.9 [facility] Comment on above: Performed By: #### T 4 #### [facility] [address] [place] [address] Dr. Mac Koenig Lactate [Moles/Vol] 4.1 mmol/L Critically high 0.4-1.9 [facility] Comment on above: Performed By: #### L ACT #### [facility] [address] [address] [address] Mac Koenig PROF CHEM 8 (BAS METB)on Anion gap [Moles/Vol] 9.0 mmol/L Normal [facility] Comment on above: Performed By: #### T 4 #### [facility] [address] [place] [address] Dr. Mac Koenig Calcium [Mass/Vol] 8.9 mg/dL Normal 8.5-10.1 [facility] Comment on above: Performed By: #### T 4 #### [facility] [address] [place] [address] Dr. Mac Koenig Chloride [Moles/Vol] 101 mmol/L Normal 98-107 [facility] Comment on above: Performed By: #### T 4 #### [facility] [address] [place] [address] Dr. Mac Koenig CO2 [Moles/Vol] 30.0 mmol/L Normal 21.0-32.0 [facility] Comment on above: Performed By: #### T 4 #### [facility] [address] [place] [address] Dr. Mac Koenig Creatinine [Mass/Vol] 0.74 mg/dL Normal 0.55-1.02 [facility] Comment on above: Performed By: #### T 4 #### [facility] [address] [place] [address] Dr. Mac Koenig EGFR-AF SINGAPOREAN >60 Normal >=60 [facility] Comment on above: Performed By: #### T 4 #### [facility] [address] [place] [address] Dr. Mac Koenig EGFR-NON AF SINGAPOREAN >60 Normal >=60 [facility] Comment on above: Performed By: #### T 4 #### [facility] [address] [place] [address] Dr. Mac Koenig Glucose [Mass/Vol] 133 mg/dL Critically high 74-106 [facility] Comment on above: Performed By: #### T 4 #### [facility] [address] [address] [address] Mac Koenig Potassium [Moles/Vol] 3.0 mmol/L Critically low 3.5-5.1 [facility] Comment on above: Performed By: #### T 4 #### [facility] [address] [place] [address] Dr. Mac Koenig Sodium [Moles/Vol] 137 mmol/L Normal 136-145 [facility] Comment on above: Performed By: #### T 4 #### [facility] [address] [place] [address] Dr. Mac Koenig Urea nitrogen [Mass/Vol] 8.0 mg/dL Normal 7.0-18.0 [facility] Comment on above: Performed By: #### T 4 #### [facility] [address] [place] [address] Dr. Mac Koenig Urea nitrogen/Creatinine [Mass ratio] 10.8 mg/mg Normal [facility] Comment on above: Performed By: #### T 4 #### [facility] [address] [place] [address] Dr. Mac Koenig TROPONIN, HIGH SENSITIVITYon 07-23-2022 HSTROP 26.8 pg/mL Normal 4.0-51.3 [facility] Comment on above: Result Comment: CUT- OFF POINTS HAVE BEEN ESTABLISHED BASED ON THE FOURTH UNIVERSAL DEFINITIONS OF MYOCARDIAL INFARCTION. THE UPPER REFERENCE LIMIT (URL) OF TROPONIN, DEFINED THE 99TH PERCENTILE OF cTnI DISTRIBUTION IN A REFERENCE POPULATION, HAS BEEN CONFIRMED THE DECISION THRESHOLD FOR IA DIAGNOSIS. Performed By: #### H STROPN #### [facility] [address] [place] [address] Dr. Mac Koenig HSTROP 12.0 pg/mL Normal 4.0-51.3 [facility] Comment on above: Result Comment: CUT- OFF POINTS HAVE BEEN ESTABLISHED BASED ON THE FOURTH UNIVERSAL DEFINITIONS OF MYOCARDIAL INFARCTION. THE UPPER REFERENCE LIMIT (URL) OF TROPONIN, DEFINED THE 99TH PERCENTILE OF cTnI DISTRIBUTION IN A REFERENCE POPULATION, HAS BEEN CONFIRMED THE DECISION THRESHOLD FOR IA DIAGNOSIS. Performed By: #### T 4 #### [facility] [address] [place] [address] Dr. Mac Koenig BNPon 07-22-2022 Natriuretic peptide B (Bld) [Mass/Vol] 347.0 pg/mL Normal <=1,800.0 [facility] Comment on above: Performed By: #### L ACT #### [facility] [address] [place] [address] Dr. Mac Koenig CBC AUTO DIFFon 07-22-2022 BASO # 0.1 103/ul Normal 0.0-0.1 [facility] Comment on above: Performed By: #### T 4 #### [facility] [address] [place] [address] Dr. Mac Koenig Basophils/100 WBC (Bld) 0.7 % Normal 0.2-2.0 [facility] Comment on above: Performed By: #### T 4 #### [facility] [address] [place] [address] Dr. Mac Koenig EO # 0.1 103/ul Normal 0.0-0.7 [facility] Comment on above: Performed By: #### T 4 #### [facility] [address] [place] [address] Dr. Mac Koenig Eosinophils/100 WBC (Bld) 1.7 % Normal 0.9-7.0 [facility] Comment on above: Performed By: #### T 4 #### [facility] [address] [place] [address] Dr. Mac Koenig Erythrocyte distribution width (RBC) [Ratio] 13.2 % Normal 11.0-15.0 [facility] Comment on above: Performed By: #### T 4 #### [facility] [address] [place] [address] Dr. Mac Koenig Hematocrit (Bld) [Volume fraction] 37.7 % Normal 36.0-48.0 [facility] Comment on above: Performed By: #### T 4 #### [facility] [address] [place] [address] Dr. Mac Koenig Hemoglobin (Bld) [Mass/Vol] 12.6 g/dL Normal 12.0-16.0 [facility] Comment on above: Performed By: #### T 4 #### [facility] [address] [place] [address] Dr. Mac Koenig IG # 0.03 10e3/ul Normal 0.00-0.03 [facility] Comment on above: Performed By: #### T 4 #### [facility] [address] [place] [address] Dr. Mac Koenig IG % 0.4 % Normal 0.0-0.5 [facility] Comment on above: Performed By: #### T 4 #### [facility] [address] [place] [address] Dr. Mac Koenig LYMPH # 2.6 103/ul Normal 1.2-3.8 [facility] Comment on above: Performed By: #### T 4 #### [facility] [address] [place] [address] Dr. Mac Koenig Lymphocytes/100 WBC (Bld) 31.2 % Normal 20.5-60.0 [facility] Comment on above: Performed By: #### T 4 #### [facility] [address] [place] [address] Dr. Mac Koenig MANUAL DIFF REQ NO Normal [facility] Comment on above: Performed By: #### T 4 #### [facility] [address] [place] [address] Dr. Mac Koenig MCH (RBC) [Entitic mass] 36.5 pg Critically high 26.7-34.0 [facility] Comment on above: Performed By: #### T 4 #### [facility] [address] [place] [address] Dr. Mac Koenig MCHC (RBC) [Mass/Vol] 33.4 g/dL Normal 29.9-35.2 [facility] Comment on above: Performed By: #### T 4 #### [facility] [address] [place] [address] Dr. Mac Koenig MCV (RBC) [Entitic vol] 109.3 fL Critically high 81.0-99.0 [facility] Comment on above: Performed By: #### T 4 #### [facility] [address] [place] [address] Dr. Mac Koenig MONO # 0.5 103/ul Normal 0.3-0.8 [facility] Comment on above: Performed By: #### T 4 #### [facility] [address] [place] [address] Dr. Mac Koenig Monocytes/100 WBC (Bld) 5.5 % Normal 1.7-12.0 [facility] Comment on above: Performed By: #### T 4 #### [facility] [address] [place] [address] Dr. Mac Koenig NEUT # 5.1 103/ul Normal 1.4-6.5 [facility] Comment on above: Performed By: #### T 4 #### [facility] [address] [place] [address] Dr. Mac Koenig Neutrophils/100 WBC (Bld) 60.5 % Normal 43.0-75.0 [facility] Comment on above: Performed By: #### T 4 #### [facility] [address] [place] [address] Dr. Mac Koenig Platelet mean volume (Bld) [Entitic vol] 12.5 fL Normal 9.5-13.5 [facility] Comment on above: Performed By: #### T 4 #### [facility] [address] [place] [address] Dr. Mac Koenig PLT 309 103/ul Normal 150-450 [facility] Comment on above: Performed By: #### T 4 #### [facility] [address] [place] [address] Dr. Mac Koenig RBC 3.45 106/ul Critically low 4.20-5.40 [facility] Comment on above: Performed By: #### T 4 #### [facility] [address] [place] [address] Dr. Mac Koenig WBC 8.4 103/ul Normal 4.0-11.0 [facility] Comment on above: Performed By: #### T 4 #### [facility] [address] [place] [address] HEAD WO CONon [...] Normal soft tissues. Mastoids are clear. ORBITS: [place] lenses are surgically absent. PARANASAL SINUSES: Normal. IMPRESSION: 1. No acute intracranial abnormality. 2. 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 Electronically authenticated by: BERE FONTENOT Date: 2022-07-22 21:39 Normal [facility] Covid-19 PCR (CVDTBH)on SARS-CoV-2 (COVID-19) RNA CHIQUITA+probe Ql (Unsp spec) Not detected Normal NOT DETECTED [facility] Comment on above: Result Comment: When diagnostic [...] for this test is supported by the Infrastructure Manager of Health and Human Service's declaration that [...] used). Performed By: #### L ACT #### [facility] [address] [place] [address] Dr. Mac Koenig D-DIMERon 07-22-2022 D-DIMER 1.76 mg/L FEU Critically high <=0.59 [facility] Comment on above: Performed By: #### D DIM #### [facility] [address] [place] [address] Dr. Mac Koenig D-DIMER COMMENTS SEE BELOW Normal [facility] Comment on above: Result Comment: Incr eases [...] hospitalization. Performed By: #### D DIM #### [facility] [address] [place] [address] Dr. Mac Koenig LACTATE/LACTIC ACIDon 2021 Lactate [Moles/Vol] 1.4 mmol/L Normal 0.4-1.9 [facility] Comment on above: Performed By: #### L ACT #### [facility] [address] [place] [address] Dr. Mac Koenig PROF 14(COMP METB)on 022 Albumin [Mass/Vol] 2.8 g/dL Critically low 3.4-5.0 [facility] Comment on above: Performed By: #### L ACT #### [facility] [address] [place] [address] Dr. Mac Koenig Albumin/Globulin [Mass ratio] 0.8 {ratio} Normal [facility] Comment on above: Performed By: #### L ACT #### [facility] [address] [place] [address] Dr. Mac Koenig ALP [Catalytic activity/Vol] 120 U/L Critically high 46-116 [facility] Comment on above: Performed By: #### L ACT #### [facility] [address] [place] [address] Dr. Mac Koenig ALT [Catalytic activity/Vol] 41 U/L Normal 14-59 [facility] Comment on above: Performed By: #### L ACT #### [facility] [address] [address] [address] Mac Koenig Anion gap [Moles/Vol] 6.2 mmol/L Normal [facility] Comment on above: Performed By: #### L ACT #### [facility] [address] [address] [address] Mac Koenig AST [Catalytic activity/Vol] 85 U/L Critically high 15-37 [facility] Comment on above: Performed By: #### L ACT #### [facility] [address] [address] [address] Mac Koenig Bilirubin [Mass/Vol] 0.8 mg/dL Normal 0.2-1.0 [facility] Comment on above: Performed By: #### L ACT #### [facility] [address] [address] [address] Mac Koenig Calcium [Mass/Vol] 8.8 mg/dL Normal 8.5-10.1 [facility] Comment on above: Performed By: #### L ACT #### [facility] [address] [address] [address] Mac Koenig Chloride [Moles/Vol] 99 mmol/L Normal 98-107 [facility] Comment on above: Performed By: #### L ACT #### [facility] [address] [address] [address] Mac Koenig CO2 [Moles/Vol] 32.3 mmol/L Critically high 21.0-32.0 [facility] Comment on above: Performed By: #### L ACT #### [facility] [address] [address] [address] Mac Koenig Creatinine [Mass/Vol] 0.68 mg/dL Normal 0.55-1.02 [facility] Comment on above: Performed By: #### L ACT #### [facility] [address] [address] [address] Mac Koenig EGFR-AF [place]INGAPOREAN >60 Normal >=60 [facility] Comment on above: Performed By: #### L ACT #### [facility] [address] [address] [address] Mac Koenig EGFR-NON AF [place]OREAN >60 Normal >=60 [facility] Comment on above: Performed By: #### L ACT #### [facility] [address] [address] [address] Mac Koenig Globulin (S) [Mass/Vol] 3.6 g/dL Normal [facility] Comment on above: Performed By: #### L ACT #### [facility] [address] [address] [address] Mac Koenig Glucose [Mass/Vol] 118 mg/dL Critically high 74-106 [facility] Comment on above: Performed By: #### L ACT #### [facility] [address] [address] [address] Mac Koenig Potassium [Moles/Vol] 2.5 mmol/L Critically low 3.5-5.1 [facility] Comment on above: Performed By: #### L ACT #### [facility] [address] [address] [address] Mac Koenig Protein [Mass/Vol] 6.4 g/dL Normal 6.4-8.2 [facility] Comment on above: Performed By: #### L ACT #### [facility] [address] [address] [address] Mac Koenig Sodium [Moles/Vol] 133 mmol/L Critically low 136-145 [facility] Comment on above: Performed By: #### L ACT #### [facility] [address] [address] [address] Mac Koenig Urea nitrogen [Mass/Vol] 9.0 mg/dL Normal 7.0-18.0 [facility] Comment on above: Performed By: #### L ACT #### [facility] [address] [address] [address] Mac Koenig Urea nitrogen/Creatinine [Mass ratio] 13.2 mg/mg Normal [facility] Comment on above: Performed By: #### L ACT #### [facility] [address] [place], [place] [address] Dr. Mac Koenig TROPONIN, HIGH SENSITIVITYon 07-22-2022 HSTROP 12.3 pg/mL Normal 4.0-51.3 [facility] Comment on above: Result Comment: CUT- OFF POINTS HAVE BEEN ESTABLISHED BASED ON THE FOURTH UNIVERSAL DEFINITIONS OF MYOCARDIAL INFARCTION. THE UPPER REFERENCE LIMIT (URL) OF TROPONIN, DEFINED THE 99TH PERCENTILE OF cTnI DISTRIBUTION IN A REFERENCE POPULATION, HAS BEEN CONFIRMED THE DECISION THRESHOLD FOR IA DIAGNOSIS. Performed By: #### L ACT #### [facility] [address] [place], [place] [address] Dr. Mac Koenig XR CHEST 1 Von [...] by: PAPA COMER Date: 2022-07-22 21:15 Normal [facility] Encounters Encounter Date Encounter Type Care Provider Facility Start: 01-28-2023 End: 01-28-[address] ROSE DIAZ Facility:[facility] Start: 08-09-2022 End: 08-10-[address] ROSE DIAZ Facility:[facility] Start: 07-23-2022 End: 07-26-[address] ROSE DIAZ Facility:[facility] Payers Date Payer Category Payer Medicaid [id number] 1958 Medicare [id number] 1945 Unknown [id number] 1945 Unknown [id number] 1945 Unknown [id number] Summary Purpose Family History No Family History [...] BE BASED ON THE PRIMARY CLINICAL RECORDS. [facility] [email or web address] [facility] provides no warranty or guarantee of the accuracy or completeness of information in this document.
[2024-09-19] MEDS: MAGNESIUM SULFATE IN WATER 2 GM/50 ML PREMIX IV (09:56)
--- NOTE | 2024-09-19 09:59 | ED_ITS ---
HPI - SOB/Dyspnea General Chief Complaint: Shortness of Breath/Dyspnea Stated Complaint: SHORTNESS OF BREATH Time Seen by Provider: 09/19/24 09:13 Source: patient and medical record Mode of arrival: ambulance History of Present Illness HPI Narrative: The patient is coming to us from [facility] complaining of shortness of breath she was already diagnosed with pneumonia apparently yesterday and she has been having increase in her shortness of breath, by the time EMS arrived the patient was in respiratory distress she was started on breathing treatment and provided with Solu-Medrol 125 mg IV The patient upon arrival still speaking 1 word sentences, the patient have no chest pain Related Data Home Medications ?Medication ?Instructions ?Recorded ?Confirmed albuterol sulfate 0.63 mg/3 mL 0.63 mg inhalation Q4H PRN 09/19/24 09/19/24 solution for nebulization shortness of breath or wheezing albuterol sulfate 90 mcg/actuation 2 puff inhalation Q4H PRN 09/19/24 09/19/24 aerosol inhaler shortness of breath or wheezing baclofen 10 mg tablet 10 mg PO TID 09/19/24 09/19/24 donepezil 10 mg tablet 10 mg PO BEDTIME 09/19/24 09/19/24 famotidine 20 mg tablet 20 mg PO BEDTIME 09/19/24 09/19/24 fluticasone furoate 200 1 inh inhalation Q24H 09/19/24 09/19/24 mcg-vilanterol 25 mcg/dose inhalation powder (Breo Ellipta) levothyroxine 50 mcg tablet 50 mcg PO DAILY 09/19/24 09/19/24 liothyronine 5 mcg tablet 10 mcg PO DAILY 09/19/24 09/19/24 loratadine 10 mg capsule (Allergy 10 mg PO DAILY 09/19/24 09/19/24 Relief (loratadine)) melatonin 3 mg capsule 9 mg PO BEDTIME 09/19/24 09/19/24 metoprolol tartrate 25 mg tablet 25 mg PO BID 09/19/24 09/19/24 potassium chloride 10 mEq 10 meq PO BID 09/19/24 09/19/24 tablet,extended release(part/cryst) sucralfate 1 gram tablet 1 g PO .bidac 09/19/24 09/19/24 Allergies Allergy/AdvReac Type Severity Reaction Status Date / Time No Known Drug Allergies Allergy Verified 09/19/24 09:14 Review of Systems ROS Status of ROS 10 or more systems reviewed and unremark able except as noted in history and below [facility] Medical History (Updated 09/19/24 @ 11:40 by Tatianna Ryan MD) Hypothyroidism ?E03.9 - Hypothyroidism, unspecified (ICD-10) Hypertension ?I10 - Essential (primary) hypertension (ICD-10) Dementia ?F03.90 - Unspecified dementia, unspecified severity, without behavioral disturbance, psychotic disturbance, mood disturbance, and anxiety (ICD-10) Coronary artery disease ?I25.10 - Atherosclerotic heart disease of [place] coronary artery without angina pectoris (ICD-10) Chronic obstructive pulmonary disease ?J44.9 - Chronic obstructive pulmonary disease, unspecified (ICD-10) Exam Narrative Exam Narrative: Nurses notes and vital signs reviewed and patient is not hypoxic. General: Patient in respiratory distress leaning forward using accessory muscle. Skin: Warm, dry, no pallor noted. No rash. Head: Normocephalic, atraumatic. Neck: Supple, non-tender. Eye: Pupils are equal, round and EOMI. No scleral icterus. Ears, Nose, Mouth, and Throat: TM are clear, no nasal mucosal hypertrophy. Oral mucosa is moist, no posterior oropharynx erythema, uvula is mid-line Cardiovascular: Regular Rate and Rhythm without murmur, gallop or rub. Respiratory: Patient using accessory muscles leaning forward and in respiratory distress, bilateral expiratory lung wheezes in both lung carey Back: No midline thoracic or lumbar vertebral tenderness. No CVA tenderness Musculoskeletal: normal ROM, no calf or popliteal tenderness, no lower extremity edema/swelling GI: Abdomen is soft, non-distended. Normal bowel sounds. No masses appreciated. No tenderness to palpation. No rebound, guarding, or rigidity noted. Neurological: A&O x4. No cranial nerve dysfunction observed. Constitutional Vital Signs, click to edit/add: Last Vital Signs Temp 98.6 F 09/19/24 09:14 Pulse 100 H 09/19/24 11:27 Resp 18 09/19/24 11:27 BP 127/78 09/19/24 11:27 Pulse Ox 93 L 09/19/24 11:10 O2 Del Method BIPAP 09/19/24 09:40 O2 Flow Rate 3 09/19/24 09:40 FiO2 35 09/19/24 09:40 Course Vital Signs Vital signs: Vital Signs Temperature 98.6 F 09/19/24 09:14 Pulse Rate 98 H 09/19/24 09:14 Respiratory Rate 22 H 09/19/24 09:14 Blood Pressure 112/72 09/19/24 09:14 Pulse Oximetry 93 L 09/19/24 09:14 Oxygen Delivery Method Nasal Cannula 09/19/24 09:14 Oxygen Delivery Flow Rate 2 09/19/24 09:14 Temperature 98.6 F 09/19/24 09:14 Pulse Rate 100 H 09/19/24 11:27 Respiratory Rate 18 09/19/24 11:27 Blood Pressure 127/78 09/19/24 11:27 Pulse Oximetry 93 L 09/19/24 11:10 Oxygen Delivery Method BIPAP 09/19/24 09:40 Oxygen Delivery Flow Rate 3 09/19/24 09:40 Fraction of Inspired Oxygen 35 09/19/24 09:40 MDM - SOB/Dyspnea MDM Narrative Medical decision making narrative: The patient EKG in the ER showing sinus rhythm with a heart rate of 101 normal multiple artifacts no ST elevation or depression On arrival the patient initially was provided with breathing treatment and she was started on BiPAP provided with another breathing treatment for total of 3 breathing treatments right now Patient also had Solu-Medrol IV by the EMS Magnesium 2 g given in the ER in addition to after blood culture the patient was started on levofloxacin CBC shows leukocytosis chemistry shows no acute significant pathology and the patient was feeling better after being placed on the BiPAP the ABG shows adequate result at the moment with no CO2 retention and the pH is normal The patient will be admitted for further evaluation management of her pneumonia and COPD exacerbation The case was discussed with and patient will be admitted for further evaluation management Lab Data Labs: Lab Results 09/19/24 09/19/24 Range/Units 09:53 10:46 WBC 22.8 H (4.0-11.0) 10^3/uL RBC 4.45 (4.20-5.40) 10^6/uL Hgb 14.4 (12.0-16.0) g/dL Hct 44.4 (36.0-48.0) % MCV 99.8 H (81.0-99.0) fL MCH 32.4 (26.7-34.0) pg MCHC 32.4 (29.9-35.2) g/dL RDW 13.5 (11.0-15.0) % Plt Count 234 (150-450) 10^3/uL MPV 12.4 (9.5-13.5) fL Puncture Site Left radial ABG pH 7.425 (7.350-7.450) ABG pCO2 43.0 (35.0-45.0) mmHg ABG pO2 88.8 (80.0-100.0) mmHg ABG HCO3 28.2 H (22.0-26.0) mmol/L ABG O2 Saturation 97.8 % ABG Base Excess 3.8 H (-2.0-2.0) mmol/L Yordan Test Positive (POSITIVE) Minute Volume 9.5 FiO2 35 % BiPAP 12/6 Sodium 139 (136-145) mmol/L Potassium 3.8 (3.5-5.1) mmol/L Chloride 100 (98-107) mmol/L Carbon Dioxide 26.3 (21.0-32.0) mmol/L Anion Gap 16.5 BUN 13.0 (7.0-18.0) mg/dL Creatinine 0.76 (0.55-1.02) mg/dL Est GFR ( Amer) >60 (>=60 mL/min/1.73m^2) Est GFR (Non-Af Amer) >60 (>=60 mL/min/1.73m^2) BUN/Creatinine Ratio 17.1 Glucose 148 H (74-106) mg/dL Calcium 9.6 (8.5-10.1) mg/dL Total Bilirubin 1.0 (0.2-1.0) mg/dL AST 13 L (15-37) U/L ALT 16 (14-59) U/L Alkaline Phosphatase 113 (46-116) U/L Troponin I High Sens 5.3 (4.0-51.3) pg/mL NT-Pro-B Natriuret Pep 349.0 (<=1800.0) pg/mL Total Protein 7.7 (6.4-8.2) g/dL Albumin 3.0 L (3.4-5.0) g/dL Globulin 4.7 g/dL Albumin/Globulin Ratio 0.6 Discharge Plan Discharge Chief Complaint: Shortness of Breath/Dyspnea Clinical Impression: COPD exacerbation, Respiratory failure, Pneumonia Patient Disposition: Admitted As Inpatient Time of Disposition Decision: 11:37 Condition: Good
[2024-09-19 10:07] LABS: HCO3 ABG 28.2 mmol/L (22.0-26.0); PO2 ABG 88.8 mmHg (80.0-100.0); pH ABG 7.425 (7.350-7.450)
[2024-09-19 10:08] LABS: Allen Test POSITIVE (POSITIVE); Base Excess ABG 3.8 mmol/L (-2.0-2.0); Fractionated Inspired Oxygen 35 %; Minute Volume 9.5; O2 Mode BIPAP; Oxygen Saturation ABG 97.8 %; Puncture Site LEFT RADIAL
[2024-09-19] MEDS: LEVOFLOXACIN IN DEXTROSE 5 % 750 MG/150 ML PREMIX 100 MG IV (10:53)
[2024-09-19 11:10] LABS: Hematocrit 44.4 % (36.0-48.0); Hemoglobin 14.4 g/dL (12.0-16.0); Mean Corpuscular HGB Conc 32.4 g/dL (29.9-35.2); Mean Corpuscular Hemoglobin 32.4 pg (26.7-34.0); Mean Corpuscular Volume 99.8 fL (81.0-99.0); Mean Platelet Volume 12.4 fL (9.5-13.5); Platelet Count 234 10^3/uL (150-450); Red Blood Count 4.45 10^6/uL (4.20-5.40); Red Cell Distribution Width 13.5 % (11.0-15.0); White Blood Count 22.8 10^3/uL (4.0-11.0)
[2024-09-19 11:26] LABS: Alanine Aminotransferase 16 U/L (14-59); Albumin Globulin Ratio 0.6; Alkaline Phosphatase 113 U/L (46-116); Anion Gap 16.5; Aspartate Amino Transferase 13 U/L (15-37); BUN Creatinine Ratio 17.1; Calcium 9.6 mg/dL (8.5-10.1); Carbon Dioxide 26.3 mmol/L (21.0-32.0); Chloride 100 mmol/L (98-107); Estimated GFR (African America >60 (>=60 mL/min/1.73m^2); Estimated GFR (Non-African Ame >60 (>=60 mL/min/1.73m^2); Globulin 4.7 g/dL; Glucose 148 mg/dL (74-106); Potassium 3.8 mmol/L (3.5-5.1); Sodium 139 mmol/L (136-145); Total Protein 7.7 g/dL (6.4-8.2)
[2024-09-19 11:29] LABS: Troponin I High Sensitivity 5.3 pg/mL (4.0-51.3)
[2024-09-19 11:42] LABS: Lymphocytes Absolute Manual 0.91 10^3/uL (1.20-3.80); Monocytes Absolute Manual 0.22 10^3/uL (0.30-0.80); Segmented Neut Absolute Manual 21.66 10^3/uL (1.4-6.5)
--- OUTSIDE RECORDS SUMMARY | 2024-09-19 12:08 | XMS_ITS | CCD ---
Author Organization [facility] Care Team Providers Care Brush Washer Name Role Phone HOUSE, DR ROSE Primary [...] Other custodial (current) drug therapy; Translations: [OTH RN RECRUITMENT CURRENT DRUG THERAPY] Onset: 01-31-2023 Episodic Substance-related [...] 01-28-2023 BASO # 0.1 103/ul Normal 0.0-0.1 [facility] Comment on above: Performed By: #### C BC #### [facility] [address] [place] [address] Dr. Mac Koenig Basophils/100 WBC (Bld) 0.7 % Normal 0.2-2.0 [facility] Comment on above: Performed By: #### C BC #### [facility] [address] [place] [address] Dr. Mac Koenig EO # 0.3 103/ul Normal 0.0-0.7 [facility] Comment on above: Performed By: #### C BC #### [facility] [address] [place] [address] Dr. Mac Koenig Eosinophils/100 WBC (Bld) 2.9 % Normal 0.9-7.0 [facility] Comment on above: Performed By: #### C BC #### [facility] [address] [place] [address] Dr. Mca Koenig Erythrocyte distribution width (RBC) [Ratio] 13.1 % Normal 11.0-15.0 [facility] Comment on above: Performed By: #### C BC #### [facility] [address] [place] [address] Dr. Mac Koenig Hematocrit (Bld) [Volume fraction] 42.7 % Normal 36.0-48.0 [facility] Comment on above: Performed By: #### C BC #### [facility] [address] [place] [address] Dr. Mac Koenig Hemoglobin (Bld) [Mass/Vol] 13.7 g/dL Normal 12.0-16.0 [facility] Comment on above: Performed By: #### C BC #### [facility] [address] [place] [address] Dr. Mac Koenig IG # 0.04 10e3/ul Critically high 0.00-0.03 [facility] Comment on above: Performed By: #### C BC #### [facility] [address] [place] [address] Dr. Mac Koenig IG % 0.4 % Normal 0.0-0.5 [facility] Comment on above: Performed By: #### C BC #### [facility] [address] [place] [address] Dr. Mac Koenig LYMPH # 3.5 103/ul Normal 1.2-3.8 [facility] Comment on above: Performed By: #### C BC #### [facility] [address] [place] [address] Dr. Mac Koenig Lymphocytes/100 WBC (Bld) 35.1 % Normal 20.5-60.0 [facility] Comment on above: Performed By: #### C BC #### [facility] [address] [place] [address] Dr. Mac Koenig MANUAL DIFF REQ NO Normal [facility] Comment on above: Performed By: #### C BC #### [facility] [address] [place] [address] Dr. Mac Koenig MCH (RBC) [Entitic mass] 33.7 pg Normal 26.7-34.0 [facility] Comment on above: Performed By: #### C BC #### [facility] [address] [place] [address] Dr. Mac Koenig MCHC (RBC) [Mass/Vol] 32.1 g/dL Normal 29.9-35.2 [facility] Comment on above: Performed By: #### C BC #### [facility] [address] [place] [address] Dr. Mac Koenig MCV (RBC) [Entitic vol] 104.9 fL Critically high 81.0-99.0 [facility] Comment on above: Performed By: #### C BC #### [facility] [address] [place] [address] Dr. Mac Koenig MONO # 0.8 103/ul Normal 0.3-0.8 [facility] Comment on above: Performed By: #### C BC #### [facility] [address] [place] [address] Dr. Mac Koenig Monocytes/100 WBC (Bld) 7.6 % Normal 1.7-12.0 [facility] Comment on above: Performed By: #### C BC #### [facility] [address] [place] [address] Dr. Mac Koenig NEUT # 5.3 103/ul Normal 1.4-6.5 [facility] Comment on above: Performed By: #### C BC #### [facility] [address] [place] [address] Dr. Mac Koenig Neutrophils/100 WBC (Bld) 53.3 % Normal 43.0-75.0 [facility] Comment on above: Performed By: #### C BC #### [facility] [address] [place] [address] Dr. Mac Koenig Platelet mean volume (Bld) [Entitic vol] 12.7 fL Normal 9.5-13.5 [facility] Comment on above: Performed By: #### C BC #### [facility] [address] [place] [address] Dr. Mac Koenig PLT 320 103/ul Normal 150-450 [facility] Comment on above: Performed By: #### C BC #### [facility] [address] [place] [address] Dr. Mac Koenig RBC 4.07 106/ul Critically low 4.20-5.40 [facility] Comment on above: Performed By: #### C BC #### [facility] [address] [place] [address] Dr. Mac Koenig WBC 9.9 103/ul Normal 4.0-11.0 [facility] Comment on above: Performed By: #### C BC #### [facility] [address] [place] [address] Dr. Mac Koenig PROF 14(COMP METB)on 023 Albumin [Mass/Vol] 3.3 g/dL Critically low 3.4-5.0 [facility] Comment on above: Performed By: #### C BC #### [facility] [address] [place] [address] Dr. Mac Koenig Albumin/Globulin [Mass ratio] 0.8 {ratio} Normal [facility] Comment on above: Performed By: #### C BC #### [facility] [address] [place] [address] Dr. Mac Koenig ALP [Catalytic activity/Vol] 123 U/L Critically high 46-116 [facility] Comment on above: Performed By: #### C BC #### [facility] [address] [place] [address] Dr. Mac Koenig ALT [Catalytic activity/Vol] 22 U/L Normal 14-59 [facility] Comment on above: Performed By: #### C BC #### [facility] [address] [place] [address] Dr. Mac Koeing Anion gap [Moles/Vol] 8.9 mmol/L Normal [facility] Comment on above: Performed By: #### C BC #### [facility] [address] [address] [address] Mac Koenig AST [Catalytic activity/Vol] 13 U/L Critically low 15-37 [facility] Comment on above: Performed By: #### C BC #### [facility] [address] [address] [address] Mac Koenig Bilirubin [Mass/Vol] 0.3 mg/dL Normal 0.2-1.0 [facility] Comment on above: Performed By: #### C BC #### [facility] [address] [address] [address] Mac Koenig Calcium [Mass/Vol] 9.2 mg/dL Normal 8.5-10.1 [facility] Comment on above: Performed By: #### C BC #### [facility] [address] [address] [address] Mac Koenig Chloride [Moles/Vol] 105 mmol/L Normal 98-107 [facility] Comment on above: Performed By: #### C BC #### [facility] [address] [address] [address] Mac Koenig CO2 [Moles/Vol] 30.3 mmol/L Normal 21.0-32.0 [facility] Comment on above: Performed By: #### C BC #### [facility] [address] [address] [address] Mac Koenig Creatinine [Mass/Vol] 0.89 mg/dL Normal 0.55-1.02 [facility] Comment on above: Performed By: #### C BC #### [facility] [address] [address] [address] Mac Koenig EGFR-AF TURKMEN >60 Normal >=60 [facility] Comment on above: Performed By: #### C BC #### [facility] [address] [address] [address] Mac Koenig EGFR-NON AF TURKMEN >60 Normal >=60 [facility] Comment on above: Performed By: #### C BC #### [facility] [address] [address] [address] Mac Koenig Globulin (S) [Mass/Vol] 3.9 g/dL Normal [facility] Comment on above: Performed By: #### C BC #### [facility] [address] [address] [address] Mac Koenig Glucose [Mass/Vol] 81 mg/dL Normal 74-106 [facility] Comment on above: Performed By: #### C BC #### [facility] [address] [address] [address] Mac Koenig Potassium [Moles/Vol] 4.2 mmol/L Normal 3.5-5.1 [facility] Comment on above: Performed By: #### C BC #### [facility] [address] [address] [address] Mac Koenig Protein [Mass/Vol] 7.2 g/dL Normal 6.4-8.2 [facility] Comment on above: Performed By: #### C BC #### [facility] [address] [address] [address] Mac Koenig Sodium [Moles/Vol] 140 mmol/L Normal 136-145 [facility] Comment on above: Performed By: #### C BC #### [facility] [address] [address] [address] Mac Koenig Urea nitrogen [Mass/Vol] 14.0 mg/dL Normal 7.0-18.0 [facility] Comment on above: Performed By: #### C BC #### [facility] [address] [address] [address] Mac Koenig Urea nitrogen/Creatinine [Mass ratio] 15.7 mg/mg Normal [facility] Comment on above: Performed By: #### C BC #### [facility] [address] [place] [address] Dr. Mac Koenig TROPONIN, HIGH SENSITIVITYon 01-28-2023 HSTROP 6.4 pg/mL Normal 4.0-51.3 [facility] Comment on above: Result Comment: CUT- OFF POINTS HAVE BEEN ESTABLISHED BASED ON THE FOURTH UNIVERSAL DEFINITIONS OF MYOCARDIAL INFARCTION. THE UPPER REFERENCE LIMIT (URL) OF TROPONIN, DEFINED THE 99TH PERCENTILE OF cTnI DISTRIBUTION IN A REFERENCE POPULATION, HAS BEEN CONFIRMED THE DECISION THRESHOLD FOR ND DIAGNOSIS. Performed By: #### C BC #### [facility] [address] [place] [address] Dr. Mac Koenig XR CHEST 1 Von [...] ISAIAH MICHAELS Date: 2023-01-28 14:36 Normal [facility] BNPon 08-09-2022 Natriuretic peptide B (Bld) [Mass/Vol] 427.0 pg/mL Normal <=1,800.0 [facility] Comment on above: Performed By: #### L ACT #### [facility] [address] [place] [address] Dr. Mac Koenig CARDIAC KARINA 3-6on 2 CK [Catalytic activity/Vol] 30 U/L Normal 26-192 [facility] Comment on above: Performed By: #### T 4 #### [facility] [address] [place] [address] Dr. Mac Koenig CK.MB [Mass/Vol] 1.65 ng/mL Normal <=3.60 [facility] Comment on above: Performed By: #### T 4 #### [facility] [address] [place] [address] Dr. Mac Koenig HSTROP 8.3 pg/mL Normal 4.0-51.3 [facility] Comment on above: Result Comment: CUT- OFF POINTS HAVE BEEN ESTABLISHED BASED ON THE FOURTH UNIVERSAL DEFINITIONS OF MYOCARDIAL INFARCTION. THE UPPER REFERENCE LIMIT (URL) OF TROPONIN, DEFINED THE 99TH PERCENTILE OF cTnI DISTRIBUTION IN A REFERENCE POPULATION, HAS BEEN CONFIRMED THE DECISION THRESHOLD FOR ND DIAGNOSIS. Performed By: #### T 4 #### [facility] [address] [place] [address] Dr. Mac Koenig CBC AUTO DIFFon 08-09-2022 BASO # 0.1 103/ul Normal 0.0-0.1 [facility] Comment on above: Performed By: #### C BC #### [facility] [address] [place] [address] Dr. Mac Koenig Basophils/100 WBC (Bld) 1.0 % Normal 0.2-2.0 [facility] Comment on above: Performed By: #### C BC #### [facility] [address] [place] [address] Dr. Mac Koenig EO # 0.2 103/ul Normal 0.0-0.7 [facility] Comment on above: Performed By: #### C BC #### [facility] [address] [place] [address] Dr. Mac Koenig Eosinophils/100 WBC (Bld) 2.1 % Normal 0.9-7.0 [facility] Comment on above: Performed By: #### C BC #### [facility] [address] [place] [address] Dr. Mac Koenig Erythrocyte distribution width (RBC) [Ratio] 14.1 % Normal 11.0-15.0 [facility] Comment on above: Performed By: #### C BC #### [facility] [address] [place] [address] Dr. Mac Koenig Hematocrit (Bld) [Volume fraction] 45.2 % Normal 36.0-48.0 [facility] Comment on above: Performed By: #### C BC #### [facility] [address] [place] [address] Dr. Mac Koenig Hemoglobin (Bld) [Mass/Vol] 15.2 g/dL Normal 12.0-16.0 [facility] Comment on above: Performed By: #### C BC #### [facility] [address] [place] [address] Dr. Mac Koenig IG # 0.02 10e3/ul Normal 0.00-0.03 [facility] Comment on above: Performed By: #### C BC #### [facility] [address] [place] [address] Dr. Mac Koenig IG % 0.3 % Normal 0.0-0.5 [facility] Comment on above: Performed By: #### C BC #### [facility] [address] [place] [address] Dr. Mac Koenig LYMPH # 2.7 103/ul Normal 1.2-3.8 [facility] Comment on above: Performed By: #### C BC #### [facility] [address] [place] [address] Dr. Mac Koenig Lymphocytes/100 WBC (Bld) 34.9 % Normal 20.5-60.0 [facility] Comment on above: Performed By: #### C BC #### [facility] [address] [place] [address] Dr. Mac Koenig MANUAL DIFF REQ NO Normal [facility] Comment on above: Performed By: #### C BC #### [facility] [address] [place] [address] Dr. Mac Koenig MCH (RBC) [Entitic mass] 37.1 pg Critically high 26.7-34.0 [facility] Comment on above: Performed By: #### C BC #### [facility] [address] [place] [address] Dr. Mac Koenig MCHC (RBC) [Mass/Vol] 33.6 g/dL Normal 29.9-35.2 [facility] Comment on above: Performed By: #### C BC #### [facility] [address] [place] [address] Dr. Mac Koenig MCV (RBC) [Entitic vol] 110.2 fL Critically high 81.0-99.0 [facility] Comment on above: Performed By: #### C BC #### [facility] [address] [place] [address] Dr. Mac Koenig MONO # 0.5 103/ul Normal 0.3-0.8 [facility] Comment on above: Performed By: #### C BC #### [facility] [address] [place] [address] Dr. Mac Koenig Monocytes/100 WBC (Bld) 6.3 % Normal 1.7-12.0 [facility] Comment on above: Performed By: #### C BC #### [facility] [address] [place] [address] Dr. Mac Koenig NEUT # 4.3 103/ul Normal 1.4-6.5 [facility] Comment on above: Performed By: #### C BC #### [facility] [address] [place] [address] Dr. Mac Koenig Neutrophils/100 WBC (Bld) 55.4 % Normal 43.0-75.0 [facility] Comment on above: Performed By: #### C BC #### [facility] [address] [place] [address] Dr. Mac Koenig Platelet mean volume (Bld) [Entitic vol] 12.1 fL Normal 9.5-13.5 [facility] Comment on above: Performed By: #### C BC #### [facility] [address] [place] [address] Dr. Mac Koenig PLT 459 103/ul Critically high 150-450 [facility] Comment on above: Performed By: #### C BC #### [facility] [address] [place] [address] Dr. Mac Koenig RBC 4.10 106/ul Critically low 4.20-5.40 [facility] Comment on above: Performed By: #### C BC #### [facility] [address] [place] [address] Dr. Mac Koenig WBC 7.7 103/ul Normal 4.0-11.0 [facility] Comment on above: Performed By: #### C BC #### [facility] [address] [place] [address] Dr. Mac Koenig PROF 14(COMP METB)on 11-21-2 022 Albumin [Mass/Vol] 3.7 g/dL Normal 3.4-5.0 [facility] Comment on above: Performed By: #### L ACT #### [facility] [address] [place] [address] Dr. Mac Koenig Albumin/Globulin [Mass ratio] 0.8 {ratio} Normal [facility] Comment on above: Performed By: #### L ACT #### [facility] [address] [address] [address] Mac Koenig ALP [Catalytic activity/Vol] 142 U/L Critically high 46-116 [facility] Comment on above: Performed By: #### L ACT #### [facility] [address] [place] [address] Dr. Mac Koenig ALT [Catalytic activity/Vol] 32 U/L Normal 14-59 [facility] Comment on above: Performed By: #### L ACT #### [facility] [address] [place] [address] Dr. Mac Koenig Anion gap [Moles/Vol] 8.7 mmol/L Normal [facility] Comment on above: Performed By: #### L ACT #### [facility] [address] [place] [address] Dr. Mac Koenig AST [Catalytic activity/Vol] 63 U/L Critically high 15-37 [facility] Comment on above: Performed By: #### L ACT #### [facility] [address] [place] [address] Dr. Mac Koenig Bilirubin [Mass/Vol] 0.4 mg/dL Normal 0.2-1.0 [facility] Comment on above: Performed By: #### L ACT #### [facility] [address] [place] [address] Dr. Mac Koenig Calcium [Mass/Vol] 10.0 mg/dL Normal 8.5-10.1 [facility] Comment on above: Performed By: #### L ACT #### [facility] [address] [place] [address] Dr. Mac Koenig Chloride [Moles/Vol] 99 mmol/L Normal 98-107 [facility] Comment on above: Performed By: #### L ACT #### [facility] [address] [address] [address] Mac Koenig CO2 [Moles/Vol] 31.5 mmol/L Normal 21.0-32.0 [facility] Comment on above: Performed By: #### L ACT #### [facility] [address] [address] [address] Mac Koenig Creatinine [Mass/Vol] 0.73 mg/dL Normal 0.55-1.02 [facility] Comment on above: Performed By: #### L ACT #### [facility] [address] [address] [address] Mac Koenig EGFR-AF TURKMEN >60 Normal >=60 [facility] Comment on above: Performed By: #### L ACT #### [facility] [address] [place] [address] Dr. Mac Koenig EGFR-NON AF TURKMEN >60 Normal >=60 [facility] Comment on above: Performed By: #### L ACT #### [facility] [address] [place] [address] Dr. Mac Koenig Globulin (S) [Mass/Vol] 4.6 g/dL Normal [facility] Comment on above: Performed By: #### L ACT #### [facility] [address] [place] [address] Dr. Mac Koenig Glucose [Mass/Vol] 110 mg/dL Critically high 74-106 [facility] Comment on above: Performed By: #### L ACT #### [facility] [address] [place] [address] Dr. Mac Koenig Potassium [Moles/Vol] 4.2 mmol/L Normal 3.5-5.1 [facility] Comment on above: Performed By: #### L ACT #### [facility] [address] [place] [address] Dr. Mac Koenig Protein [Mass/Vol] 8.3 g/dL Critically high 6.4-8.2 [facility] Comment on above: Performed By: #### L ACT #### [facility] [address] [address] [address] Mac Koenig Sodium [Moles/Vol] 135 mmol/L Critically low 136-145 [facility] Comment on above: Performed By: #### L ACT #### [facility] [address] [address] [address] Mac Koenig Urea nitrogen [Mass/Vol] 10.0 mg/dL Normal 7.0-18.0 [facility] Comment on above: Performed By: #### L ACT #### [facility] [address] [address] [address] Mac Koenig Urea nitrogen/Creatinine [Mass ratio] 13.7 mg/mg Normal [facility] Comment on above: Performed By: #### L ACT #### [facility] [address] [address] [address] Mac Koenig TROPONIN, HIGH SENSITIVITYon 08-09-2022 HSTROP 9.1 pg/mL Normal 4.0-51.3 [facility] Comment on above: Result Comment: CUT- OFF POINTS HAVE BEEN ESTABLISHED BASED ON THE FOURTH UNIVERSAL DEFINITIONS OF MYOCARDIAL INFARCTION. THE UPPER REFERENCE LIMIT (URL) OF TROPONIN, DEFINED THE 99TH PERCENTILE OF cTnI DISTRIBUTION IN A REFERENCE POPULATION, HAS BEEN CONFIRMED THE DECISION THRESHOLD FOR ND DIAGNOSIS. Performed By: #### L ACT #### [facility] [address] [place] [address] Dr. Mac Koenig XR CHEST 1 Von 08-09-2022 XR CHEST 1 V ONE-VIEW CHEST RADIOGRAPH, 08/09/2022 5:01 PM EST COMPARISON: Chest, 07/22/2022. CLINICAL HISTORY: CHEST PAIN, UNSPECIFIED Findings and impression: 1. No acute cardiopulmonary disease. 2. Normal heart size. 3. No acute osseous abnormality. Electronically authenticated by: Aida BLAKE Date: 2022-08-09 17:54 Normal [facility] CBC AUTO DIFFon 07-26-2022 BASO # 0.0 103/ul Normal 0.0-0.1 [facility] Comment on above: Performed By: #### C BC #### [facility] [address] [address] [address] Mac Koenig Basophils/100 WBC (Bld) 0.3 % Normal 0.2-2.0 [facility] Comment on above: Performed By: #### C BC #### [facility] [address] [place] [address] Dr. Mac Koenig EO # 0.1 103/ul Normal 0.0-0.7 [facility] Comment on above: Performed By: #### C BC #### [facility] [address] [place] [address] Dr. Mac Koenig Eosinophils/100 WBC (Bld) 0.5 % Critically low 0.9-7.0 [facility] Comment on above: Performed By: #### C BC #### [facility] [address] [place] [address] Dr. Mac Koenig Erythrocyte distribution width (RBC) [Ratio] 13.5 % Normal 11.0-15.0 [facility] Comment on above: Performed By: #### C BC #### [facility] [address] [place] [address] Dr. Mac Koenig Hematocrit (Bld) [Volume fraction] 35.5 % Critically low 36.0-48.0 [facility] Comment on above: Performed By: #### C BC #### [facility] [address] [place] [address] Dr. Mac Koenig Hemoglobin (Bld) [Mass/Vol] 12.2 g/dL Normal 12.0-16.0 [facility] Comment on above: Performed By: #### C BC #### [facility] [address] [place] [address] Dr. Mac Koenig IG # 0.03 10e3/ul Normal 0.00-0.03 [facility] Comment on above: Performed By: #### C BC #### [facility] [address] [place] [address] Dr. Mac Koenig IG % 0.3 % Normal 0.0-0.5 [facility] Comment on above: Performed By: #### C BC #### [facility] [address] [place] [address] Dr. Mac Koenig LYMPH # 1.4 103/ul Normal 1.2-3.8 [facility] Comment on above: Performed By: #### C BC #### [facility] [address] [place] [address] Dr. Mac Koenig Lymphocytes/100 WBC (Bld) 13.8 % Critically low 20.5-60.0 [facility] Comment on above: Performed By: #### C BC #### [facility] [address] [place] [address] Dr. Mac Koenig MANUAL DIFF REQ NO Normal [facility] Comment on above: Performed By: #### C BC #### [facility] [address] [place] [address] Dr. Mac Koenig MCH (RBC) [Entitic mass] 36.9 pg Critically high 26.7-34.0 [facility] Comment on above: Performed By: #### C BC #### [facility] [address] [place] [address] Dr. Mac Koenig MCHC (RBC) [Mass/Vol] 34.4 g/dL Normal 29.9-35.2 [facility] Comment on above: Performed By: #### C BC #### [facility] [address] [place] [address] Dr. Mac Koenig MCV (RBC) [Entitic vol] 107.3 fL Critically high 81.0-99.0 [facility] Comment on above: Performed By: #### C BC #### [facility] [address] [place] [address] Dr. Mac Koenig MONO # 0.6 103/ul Normal 0.3-0.8 [facility] Comment on above: Performed By: #### C BC #### [facility] [address] [place] [address] Dr. Mac Koenig Monocytes/100 WBC (Bld) 5.8 % Normal 1.7-12.0 [facility] Comment on above: Performed By: #### C BC #### [facility] [address] [place] [address] Dr. Mac Koenig NEUT # 8.0 103/ul Critically high 1.4-6.5 [facility] Comment on above: Performed By: #### C BC #### [facility] [address] [address] [address] Mac Koenig Neutrophils/100 WBC (Bld) 79.3 % Critically high 43.0-75.0 [facility] Comment on above: Performed By: #### C BC #### [facility] [address] [address] [address] Mac Koenig Platelet mean volume (Bld) [Entitic vol] 12.9 fL Normal 9.5-13.5 [facility] Comment on above: Performed By: #### C BC #### [facility] [address] [place] [address] Dr. Mac Koenig PLT 199 103/ul Normal 150-450 [facility] Comment on above: Performed By: #### C BC #### [facility] [address] [place] [address] Dr. Mac Koenig RBC 3.31 106/ul Critically low 4.20-5.40 [facility] Comment on above: Performed By: #### C BC #### [facility] [address] [place] [address] Dr. Mac Koenig WBC 10.0 103/ul Normal 4.0-11.0 [facility] Comment on above: Performed By: #### C BC #### [facility] [address] [place] [address] Dr. Mac Koenig ECHOCARDIO M/2D COMPLETEon 1 09-25-2021 ECHOCARDIO M/2D COMPLETE Patient: MICHEAL DAVE Exam Date: 07/26/2022 : 1945 Gender:F Ordering : DR RADHA PETERS . Admission #: [id number] Family : DR ROSE DIAZ D.O. Order #: [id number] CLICK HERE TO VIEW EXAM ECHOCARDIOGRAM REPORT [...] (Peak Sancho): 2.03 cm2, 2.03 cm2 Deceleration [place]: 1.52 m/s2 Pressure Half-Time: 594.74 ms Peak [...] Sofia M.D. on 07/27/2022 at 15:37 Normal [facility] PROF 14(COMP METB)on 022 Albumin [Mass/Vol] 2.4 g/dL Critically low 3.4-5.0 [facility] Comment on above: Performed By: #### C MP #### [facility] [address] [place] [address] Dr. Mac Koenig Albumin/Globulin [Mass ratio] 0.6 {ratio} Normal [facility] Comment on above: Performed By: #### C MP #### [facility] [address] [place] [address] Dr. Mac Koenig ALP [Catalytic activity/Vol] 140 U/L Critically high 46-116 [facility] Comment on above: Performed By: #### C MP #### [facility] [address] [place] [address] Dr. Mac Koenig ALT [Catalytic activity/Vol] 54 U/L Normal 14-59 [facility] Comment on above: Performed By: #### C MP #### [facility] [address] [place] [address] Dr. Mac Koenig Anion gap [Moles/Vol] 11.1 mmol/L Normal [facility] Comment on above: Performed By: #### C MP #### [facility] [address] [address] [address] Mac Koenig AST [Catalytic activity/Vol] 37 U/L Normal 15-37 [facility] Comment on above: Performed By: #### C MP #### [facility] [address] [address] [address] Mac Koenig Bilirubin [Mass/Vol] 0.6 mg/dL Normal 0.2-1.0 [facility] Comment on above: Performed By: #### C MP #### [facility] [address] [address] [address] Mac Koenig Calcium [Mass/Vol] 8.5 mg/dL Normal 8.5-10.1 [facility] Comment on above: Performed By: #### C MP #### [facility] [address] [address] [address] Mac Koenig Chloride [Moles/Vol] 99 mmol/L Normal 98-107 [facility] Comment on above: Performed By: #### C MP #### [facility] [address] [address] [address] Mac Koenig CO2 [Moles/Vol] 27.5 mmol/L Normal 21.0-32.0 [facility] Comment on above: Performed By: #### C MP #### [facility] [address] [address] [address] Mac Koenig Creatinine [Mass/Vol] 0.57 mg/dL Normal 0.55-1.02 [facility] Comment on above: Performed By: #### C MP #### [facility] [address] [address] [address] Mac Koenig EGFR-AF TURKMEN >60 Normal >=60 [facility] Comment on above: Performed By: #### C MP #### [facility] [address] [address] [address] Mac Koenig EGFR-NON AF TURKMEN >60 Normal >=60 [facility] Comment on above: Performed By: #### C MP #### [facility] [address] [address] [address] Mac Koenig Globulin (S) [Mass/Vol] 3.7 g/dL Normal [facility] Comment on above: Performed By: #### C MP #### [facility] [address] [address] [address] Mac Koenig Glucose [Mass/Vol] 96 mg/dL Normal 74-106 [facility] Comment on above: Performed By: #### C MP #### [facility] [address] [address] [address] Mac Koenig Potassium [Moles/Vol] 3.6 mmol/L Normal 3.5-5.1 [facility] Comment on above: Performed By: #### C MP #### [facility] [address] [address] [address] Mac Koenig Protein [Mass/Vol] 6.1 g/dL Critically low 6.4-8.2 [facility] Comment on above: Performed By: #### C MP #### [facility] [address] [place] [address] Dr. Mac Koenig Sodium [Moles/Vol] 134 mmol/L Critically low 136-145 [facility] Comment on above: Performed By: #### C MP #### [facility] [address] [place] [address] Dr. Mac Koenig Urea nitrogen [Mass/Vol] 7.0 mg/dL Normal 7.0-18.0 [facility] Comment on above: Performed By: #### C MP #### [facility] [address] [place] [address] Dr. Mac Koenig Urea nitrogen/Creatinine [Mass ratio] 12.3 mg/mg Normal [facility] Comment on above: Performed By: #### C MP #### [facility] [address] [place] [address] Dr. Mac Koenig CBC AUTO DIFFon 07-25-2022 BASO # 0.0 103/ul Normal 0.0-0.1 [facility] Comment on above: Performed By: #### C BC #### [facility] [address] [place] [address] Dr. Mac Koenig Basophils/100 WBC (Bld) 0.5 % Normal 0.2-2.0 [facility] Comment on above: Performed By: #### C BC #### [facility] [address] [place] [address] Dr. Mac Koenig EO # 0.1 103/ul Normal 0.0-0.7 [facility] Comment on above: Performed By: #### C BC #### [facility] [address] [place] [address] Dr. Mac Koenig Eosinophils/100 WBC (Bld) 1.0 % Normal 0.9-7.0 [facility] Comment on above: Performed By: #### C BC #### [facility] [address] [place] [address] Dr. Mac Koenig Erythrocyte distribution width (RBC) [Ratio] 13.7 % Normal 11.0-15.0 [facility] Comment on above: Performed By: #### C BC #### [facility] [address] [place] [address] Dr. Mac Koenig Hematocrit (Bld) [Volume fraction] 34.7 % Critically low 36.0-48.0 [facility] Comment on above: Performed By: #### C BC #### [facility] [address] [place] [address] Dr. Mac Koenig Hemoglobin (Bld) [Mass/Vol] 11.7 g/dL Critically low 12.0-16.0 [facility] Comment on above: Performed By: #### C BC #### [facility] [address] [place] [address] Dr. Mac Koenig IG # 0.02 10e3/ul Normal 0.00-0.03 [facility] Comment on above: Performed By: #### C BC #### [facility] [address] [place] [address] Dr. Mac Koenig IG % 0.3 % Normal 0.0-0.5 [facility] Comment on above: Performed By: #### C BC #### [facility] [address] [address] [address] Mac Koenig LYMPH # 1.2 103/ul Normal 1.2-3.8 [facility] Comment on above: Performed By: #### C BC #### [facility] [address] [address] [address] Mac Koenig Lymphocytes/100 WBC (Bld) 15.6 % Critically low 20.5-60.0 [facility] Comment on above: Performed By: #### C BC #### [facility] [address] [address] [address] Mac Koenig MANUAL DIFF REQ NO Normal [facility] Comment on above: Performed By: #### C BC #### [facility] [address] [place] [address] Dr. Mac Koenig MCH (RBC) [Entitic mass] 36.8 pg Critically high 26.7-34.0 [facility] Comment on above: Performed By: #### C BC #### [facility] [address] [place] [address] Dr. Mac Koenig MCHC (RBC) [Mass/Vol] 33.7 g/dL Normal 29.9-35.2 [facility] Comment on above: Performed By: #### C BC #### [facility] [address] [place] [address] Dr. Mac Koenig MCV (RBC) [Entitic vol] 109.1 fL Critically high 81.0-99.0 [facility] Comment on above: Performed By: #### C BC #### [facility] [address] [place] [address] Dr. Mac Koenig MONO # 0.5 103/ul Normal 0.3-0.8 [facility] Comment on above: Performed By: #### C BC #### [facility] [address] [place] [address] Dr. Mac Koenig Monocytes/100 WBC (Bld) 5.9 % Normal 1.7-12.0 [facility] Comment on above: Performed By: #### C BC #### [facility] [address] [address] [address] Mac Koenig NEUT # 6.0 103/ul Normal 1.4-6.5 [facility] Comment on above: Performed By: #### C BC #### [facility] [address] [place] [address] Dr. Mac Koenig Neutrophils/100 WBC (Bld) 76.7 % Critically high 43.0-75.0 [facility] Comment on above: Performed By: #### C BC #### [facility] [address] [place] [address] Dr. Mac Koenig Platelet mean volume (Bld) [Entitic vol] 12.4 fL Normal 9.5-13.5 [facility] Comment on above: Performed By: #### C BC #### [facility] [address] [place] [address] Dr. Mac Koenig PLT 166 103/ul Normal 150-450 [facility] Comment on above: Performed By: #### C BC #### [facility] [address] [place] [address] Dr. Mac Koenig RBC 3.18 106/ul Critically low 4.20-5.40 [facility] Comment on above: Performed By: #### C BC #### [facility] [address] [place] [address] Dr. Mac Koenig WBC 7.8 103/ul Normal 4.0-11.0 [facility] Comment on above: Performed By: #### C BC #### [facility] [address] [place] [address] Dr. Mac Koenig PROF 14(COMP METB)on 022 Albumin [Mass/Vol] 1.9 g/dL Critically low 3.4-5.0 [facility] Comment on above: Performed By: #### T 4 #### [facility] [address] [place] [address] Dr. Mac Koenig Albumin/Globulin [Mass ratio] 0.5 {ratio} Normal [facility] Comment on above: Performed By: #### T 4 #### [facility] [address] [place], [place] [id number] Dr. Mac Koenig ALP [Catalytic activity/Vol] 153 U/L Critically high 46-116 [facility] Comment on above: Performed By: #### T 4 #### [facility] [address] [place] [address] Dr. Mac Koenig ALT [Catalytic activity/Vol] 63 U/L Critically high 14-59 [facility] Comment on above: Performed By: #### T 4 #### [facility] [address] [address] [address] Mac Koenig Anion gap [Moles/Vol] 7.0 mmol/L Normal [facility] Comment on above: Performed By: #### T 4 #### [facility] [address] [place] [address] Dr. Mac Koenig AST [Catalytic activity/Vol] 44 U/L Critically high 15-37 [facility] Comment on above: Performed By: #### T 4 #### [facility] [address] [place] [address] Dr. Mac Koenig Bilirubin [Mass/Vol] 0.6 mg/dL Normal 0.2-1.0 [facility] Comment on above: Performed By: #### T 4 #### [facility] [address] [place] [address] Dr. Mac Koenig Calcium [Mass/Vol] 8.7 mg/dL Normal 8.5-10.1 [facility] Comment on above: Performed By: #### T 4 #### [facility] [address] [place] [address] Dr. Mac Koenig Chloride [Moles/Vol] 104 mmol/L Normal 98-107 [facility] Comment on above: Performed By: #### T 4 #### [facility] [address] [place] [address] Dr. Mac Koenig CO2 [Moles/Vol] 25.4 mmol/L Normal 21.0-32.0 [facility] Comment on above: Performed By: #### T 4 #### [facility] [address] [place] [address] Dr. Mac Koenig Creatinine [Mass/Vol] 0.74 mg/dL Normal 0.55-1.02 [facility] Comment on above: Performed By: #### T 4 #### [facility] [address] [address] [address] Mac Koenig EGFR-AF TURKMEN >60 Normal >=60 [facility] Comment on above: Performed By: #### T 4 #### [facility] [address] [address] [address] Mac Koenig EGFR-NON AF TURKMEN >60 Normal >=60 [facility] Comment on above: Performed By: #### T 4 #### [facility] [address] [address] [address] Mac Koenig Globulin (S) [Mass/Vol] 3.5 g/dL Normal [facility] Comment on above: Performed By: #### T 4 #### [facility] [address] [place] [address] Dr. Mac Koenig Glucose [Mass/Vol] 80 mg/dL Normal 74-106 [facility] Comment on above: Performed By: #### T 4 #### [facility] [address] [place] [address] Dr. Mac Koenig Potassium [Moles/Vol] 3.4 mmol/L Critically low 3.5-5.1 [facility] Comment on above: Performed By: #### T 4 #### [facility] [address] [place] [address] Dr. Mac Koenig Protein [Mass/Vol] 5.4 g/dL Critically low 6.4-8.2 [facility] Comment on above: Performed By: #### T 4 #### [facility] [address] [place] [address] Dr. Mac Koenig Sodium [Moles/Vol] 133 mmol/L Critically low 136-145 [facility] Comment on above: Performed By: #### T 4 #### [facility] [address] [place] [address] Dr. Mac Koenig Urea nitrogen [Mass/Vol] 12.0 mg/dL Normal 7.0-18.0 [facility] Comment on above: Performed By: #### T 4 #### [facility] [address] [address] [address] Mac Koenig Urea nitrogen/Creatinine [Mass ratio] 16.2 mg/mg Normal [facility] Comment on above: Performed By: #### T 4 #### [facility] [address] [place] [address] Dr. Mac Koenig CBC AUTO DIFFon 07-24-2022 BASO # 0.1 103/ul Normal 0.0-0.1 [facility] Comment on above: Performed By: #### T 4 #### [facility] [address] [place] [address] Dr. Mac Koenig Basophils/100 WBC (Bld) 0.6 % Normal 0.2-2.0 [facility] Comment on above: Performed By: #### T 4 #### [facility] [address] [place] [address] Dr. Mac Koenig EO # 0.0 103/ul Normal 0.0-0.7 [facility] Comment on above: Performed By: #### T 4 #### [facility] [address] [place] [address] Dr. Mac Koenig Eosinophils/100 WBC (Bld) 0.1 % Critically low 0.9-7.0 [facility] Comment on above: Performed By: #### T 4 #### [facility] [address] [place] [address] Dr. Mac Koenig Erythrocyte distribution width (RBC) [Ratio] 13.6 % Normal 11.0-15.0 [facility] Comment on above: Performed By: #### T 4 #### [facility] [address] [place] [address] Dr. Mac Koenig Hematocrit (Bld) [Volume fraction] 34.6 % Critically low 36.0-48.0 [facility] Comment on above: Performed By: #### T 4 #### [facility] [address] [place] [address] Dr. Mac Koenig Hemoglobin (Bld) [Mass/Vol] 11.7 g/dL Critically low 12.0-16.0 [facility] Comment on above: Performed By: #### T 4 #### [facility] [address] [address] [address] Mac Koenig IG # 0.04 10e3/ul Critically high 0.00-0.03 [facility] Comment on above: Performed By: #### T 4 #### [facility] [address] [address] [address] Mac Koenig IG % 0.4 % Normal 0.0-0.5 [facility] Comment on above: Performed By: #### T 4 #### [facility] [address] [address] [address] Mac Koenig LYMPH # 1.1 103/ul Critically low 1.2-3.8 [facility] Comment on above: Performed By: #### T 4 #### [facility] [address] [place] [address] Dr. Mac Koenig Lymphocytes/100 WBC (Bld) 10.1 % Critically low 20.5-60.0 [facility] Comment on above: Performed By: #### T 4 #### [facility] [address] [address] [address] Mac Koenig MANUAL DIFF REQ NO Normal [facility] Comment on above: Performed By: #### T 4 #### [facility] [address] [place] [address] Dr. Mac Koenig MCH (RBC) [Entitic mass] 36.7 pg Critically high 26.7-34.0 [facility] Comment on above: Performed By: #### T 4 #### [facility] [address] [address] [address] Mac Koenig MCHC (RBC) [Mass/Vol] 33.8 g/dL Normal 29.9-35.2 [facility] Comment on above: Performed By: #### T 4 #### [facility] [address] [place] [address] Dr. Mac Koenig MCV (RBC) [Entitic vol] 108.5 fL Critically high 81.0-99.0 [facility] Comment on above: Performed By: #### T 4 #### [facility] [address] [address] [address] Mac Koenig MONO # 0.7 103/ul Normal 0.3-0.8 [facility] Comment on above: Performed By: #### T 4 #### [facility] [address] [address] [address] Mac Koenig Monocytes/100 WBC (Bld) 6.5 % Normal 1.7-12.0 [facility] Comment on above: Performed By: #### T 4 #### [facility] [address] [place] [address] Dr. aMc Koenig NEUT # 8.6 103/ul Critically high 1.4-6.5 [facility] Comment on above: Performed By: #### T 4 #### [facility] [address] [place] [address] Dr. Mac Koenig Neutrophils/100 WBC (Bld) 82.3 % Critically high 43.0-75.0 [facility] Comment on above: Performed By: #### T 4 #### [facility] [address] [place] [address] Dr. Mac Koenig Platelet mean volume (Bld) [Entitic vol] 12.7 fL Normal 9.5-13.5 [facility] Comment on above: Performed By: #### T 4 #### [facility] [address] [place] [address] Dr. Mac Koenig PLT 204 103/ul Normal 150-450 [facility] Comment on above: Performed By: #### T 4 #### [facility] [address] [place] [address] Dr. Mac Koenig RBC 3.19 106/ul Critically low 4.20-5.40 [facility] Comment on above: Performed By: #### T 4 #### [facility] [address] [place] [address] Dr. Mac Koenig WBC 10.4 103/ul Normal 4.0-11.0 [facility] Comment on above: Performed By: #### T 4 #### [facility] [address] [place] [address] Dr. Mac Koenig FREE T3on 07-24-2022 FREE T3 1.50 pg/mlL Critically low 2.18-3.98 [facility] Comment on above: Performed By: #### C BC #### [facility] [address] [place] [address] Dr. Mac Koenig PROF 14(COMP METB)on 022 Albumin [Mass/Vol] 2.4 g/dL Critically low 3.4-5.0 [facility] Comment on above: Performed By: #### T 4 #### [facility] [address] [place] [address] Dr. Mac Koenig Albumin/Globulin [Mass ratio] 0.7 {ratio} Normal [facility] Comment on above: Performed By: #### T 4 #### [facility] [address] [place] [address] Dr. Mac Koenig ALP [Catalytic activity/Vol] 195 U/L Critically high 46-116 [facility] Comment on above: Performed By: #### T 4 #### [facility] [address] [place] [address] Dr. Mac Koenig ALT [Catalytic activity/Vol] 97 U/L Critically high 14-59 [facility] Comment on above: Performed By: #### T 4 #### [facility] [address] [place] [address] Dr. Mac Koenig Anion gap [Moles/Vol] 6.2 mmol/L Normal [facility] Comment on above: Performed By: #### T 4 #### [facility] [address] [place] [address] Dr. Mac Koenig AST [Catalytic activity/Vol] 93 U/L Critically high 15-37 [facility] Comment on above: Performed By: #### T 4 #### [facility] [address] [place] [address] Dr. Mac Koenig Bilirubin [Mass/Vol] 1.2 mg/dL Critically high 0.2-1.0 [facility] Comment on above: Performed By: #### T 4 #### [facility] [address] [address] [address] Mac Koenig Calcium [Mass/Vol] 8.7 mg/dL Normal 8.5-10.1 [facility] Comment on above: Performed By: #### T 4 #### [facility] [address] [address] [address] Mac Koenig Chloride [Moles/Vol] 100 mmol/L Normal 98-107 [facility] Comment on above: Performed By: #### T 4 #### [facility] [address] [place] [address] Dr. Mac Koenig CO2 [Moles/Vol] 31.4 mmol/L Normal 21.0-32.0 [facility] Comment on above: Performed By: #### T 4 #### [facility] [address] [place] [address] Dr. Mac Koenig Creatinine [Mass/Vol] 0.72 mg/dL Normal 0.55-1.02 [facility] Comment on above: Performed By: #### T 4 #### [facility] [address] [place] [address] Dr. Mac Koenig EGFR-AF TURKMEN >60 Normal >=60 [facility] Comment on above: Performed By: #### T 4 #### [facility] [address] [place] [address] Dr. Mac Koenig EGFR-NON AF TURKMEN >60 Normal >=60 [facility] Comment on above: Performed By: #### T 4 #### [facility] [address] [place] [address] Dr. Mac Koenig Globulin (S) [Mass/Vol] 3.5 g/dL Normal [facility] Comment on above: Performed By: #### T 4 #### [facility] [address] [place] [address] Dr. Mac Koenig Glucose [Mass/Vol] 94 mg/dL Normal 74-106 [facility] Comment on above: Performed By: #### T 4 #### [facility] [address] [place] [address] Dr. Mac Koenig Potassium [Moles/Vol] 3.6 mmol/L Normal 3.5-5.1 [facility] Comment on above: Performed By: #### T 4 #### [facility] [address] [place] [address] Dr. Mac Koenig Protein [Mass/Vol] 5.9 g/dL Critically low 6.4-8.2 [facility] Comment on above: Performed By: #### T 4 #### [facility] [address] [place] [address] Dr. Mac Koenig Sodium [Moles/Vol] 134 mmol/L Critically low 136-145 [facility] Comment on above: Performed By: #### T 4 #### [facility] [address] [place] [address] Dr. Mac Koenig Urea nitrogen [Mass/Vol] 8.0 mg/dL Normal 7.0-18.0 [facility] Comment on above: Performed By: #### T 4 #### [facility] [address] [place] [address] Dr. Mac Koenig Urea nitrogen/Creatinine [Mass ratio] 11.1 mg/mg Normal [facility] Comment on above: Performed By: #### T 4 #### [facility] [address] [place] [address] Dr. Mac Koenig T4on 07-24-2022 T4 [Mass/Vol] 11.00 ug/dL Normal 4.80-13.90 [facility] Comment on above: Performed By: #### T 4 #### [facility] [address] [place] [address] Dr. Mac Koenig TSHon 07-24-2022 TSH 0.596 uIU/mL Normal 0.358-3.740 [facility] Comment on above: Performed By: #### C BC #### [facility] [address] [place] [address] ABD/PELV W CONon [...] by: TISH JURADO Date: 2022-07-23 05:08 Normal [facility] CTA CHEST WO W CONon 022 CTA CHEST WO W CON EXAMINATION: CTA [facility] WO W CON, 07/23/2022 1:39 [...] TISH JURADO Date: 2022-07-23 05:01 Normal [facility] ER URINE PROFILEon 2 Bilirubin Ql (U) Negative Normal NEGATIVE [facility] Comment on above: Performed By: #### T 4 #### [facility] [address] [place] [address] Dr. Mac Koenig Clarity (U) CLEAR Normal CLEAR [facility] Comment on above: Performed By: #### T 4 #### [facility] [address] [place] [address] Dr. Mac Koenig Color (U) LT. YELLOW Normal YELLOW [facility] Comment on above: Performed By: #### T 4 #### [facility] [address] [place] [address] Dr. Mac DEAN A micrscopic examination will be performed if indicated. Normal [facility] Comment on above: Performed By: #### T 4 #### [facility] [address] [place] [address] Dr. Mac Koenig Glucose Ql (U) Negative Normal NEGATIVE [facility] Comment on above: Performed By: #### T 4 #### [facility] [address] [place] [address] Dr. Mac Koenig Hemoglobin Ql (U) Negative Normal NEGATIVE [facility] Comment on above: Performed By: #### T 4 #### [facility] [address] [place] [address] Dr. Mac Koenig Ketones Ql (U) Negative Normal NEGATIVE [facility] Comment on above: Performed By: #### T 4 #### [facility] [address] [place] [address] Dr. Mac Koenig LEUKOCYTES Negative Normal NEGATIVE [facility] Comment on above: Performed By: #### T 4 #### [facility] [address] [place] [address] Dr. Mac Koenig Nitrite Ql (U) Negative Normal NEGATIVE [facility] Comment on above: Performed By: #### T 4 #### [facility] [address] [place] [address] Dr. Mac Koenig pH (U) 6.0 [pH] Normal 5-9 [facility] Comment on above: Performed By: #### T 4 #### [facility] [address] [place] [address] Dr. Mac Koenig SPEC GRAVITY <=1.005 Abnormal 1.005-<=1.025 The [facility] Comment on above: Performed By: #### T 4 #### [facility] [address] [place] [address] Dr. Mac Koenig UA PROTEIN Negative Normal NEGATIVE/ TRACE The [facility] Comment on above: Performed By: #### T 4 #### [facility] [address] [place] [address] Dr. Mac Koenig UR MICRO IND NOT INDICATED Normal The [facility] Comment on above: Performed By: #### T 4 #### [facility] [address] [place] [address] Dr. Mac Koenig Urobilinogen Qn (U) 1.0 {Jd'U}/dL Normal 0.2 - 1. 0 [facility] Comment on above: Performed By: #### T 4 #### [facility] [address] [place] [address] Dr. Mac Koenig LACTATE/LACTIC ACIDon 2021 Lactate [Moles/Vol] 3.1 mmol/L Critically high 0.4-1.9 [facility] Comment on above: Performed By: #### L ACT #### [facility] [address] [place] [address] Dr. Mac Koenig Lactate [Moles/Vol] 3.7 mmol/L Critically high 0.4-1.9 [facility] Comment on above: Performed By: #### T 4 #### [facility] [address] [place] [address] Dr. Mac Koenig Lactate [Moles/Vol] 4.1 mmol/L Critically high 0.4-1.9 [facility] Comment on above: Performed By: #### L ACT #### [facility] [address] [address] [address] Mac Koenig PROF CHEM 8 (BAS METB)on Anion gap [Moles/Vol] 9.0 mmol/L Normal [facility] Comment on above: Performed By: #### T 4 #### [facility] [address] [place] [address] Dr. Mac Koenig Calcium [Mass/Vol] 8.9 mg/dL Normal 8.5-10.1 [facility] Comment on above: Performed By: #### T 4 #### [facility] [address] [place] [address] Dr. Mac Koenig Chloride [Moles/Vol] 101 mmol/L Normal 98-107 [facility] Comment on above: Performed By: #### T 4 #### [facility] [address] [place] [address] Dr. Mac Koenig CO2 [Moles/Vol] 30.0 mmol/L Normal 21.0-32.0 [facility] Comment on above: Performed By: #### T 4 #### [facility] [address] [place] [address] Dr. Mac Koenig Creatinine [Mass/Vol] 0.74 mg/dL Normal 0.55-1.02 [facility] Comment on above: Performed By: #### T 4 #### [facility] [address] [place] [address] Dr. Mac Koenig EGFR-AF TURKMEN >60 Normal >=60 [facility] Comment on above: Performed By: #### T 4 #### [facility] [address] [place] [address] Dr. Mac Koenig EGFR-NON AF TURKMEN >60 Normal >=60 [facility] Comment on above: Performed By: #### T 4 #### [facility] [address] [place] [address] Dr. Mac Koenig Glucose [Mass/Vol] 133 mg/dL Critically high 74-106 [facility] Comment on above: Performed By: #### T 4 #### [facility] [address] [address] [address] Mac Koenig Potassium [Moles/Vol] 3.0 mmol/L Critically low 3.5-5.1 [facility] Comment on above: Performed By: #### T 4 #### [facility] [address] [place] [address] Dr. Mac Koenig Sodium [Moles/Vol] 137 mmol/L Normal 136-145 [facility] Comment on above: Performed By: #### T 4 #### [facility] [address] [place] [address] Dr. Mac Koenig Urea nitrogen [Mass/Vol] 8.0 mg/dL Normal 7.0-18.0 [facility] Comment on above: Performed By: #### T 4 #### [facility] [address] [place] [address] Dr. Mac Koenig Urea nitrogen/Creatinine [Mass ratio] 10.8 mg/mg Normal [facility] Comment on above: Performed By: #### T 4 #### [facility] [address] [place] [address] Dr. Mac Koenig TROPONIN, HIGH SENSITIVITYon 07-23-2022 HSTROP 26.8 pg/mL Normal 4.0-51.3 [facility] Comment on above: Result Comment: CUT- OFF POINTS HAVE BEEN ESTABLISHED BASED ON THE FOURTH UNIVERSAL DEFINITIONS OF MYOCARDIAL INFARCTION. THE UPPER REFERENCE LIMIT (URL) OF TROPONIN, DEFINED THE 99TH PERCENTILE OF cTnI DISTRIBUTION IN A REFERENCE POPULATION, HAS BEEN CONFIRMED THE DECISION THRESHOLD FOR ND DIAGNOSIS. Performed By: #### H STROPN #### [facility] [address] [place] [address] Dr. Mac Koenig HSTROP 12.0 pg/mL Normal 4.0-51.3 [facility] Comment on above: Result Comment: CUT- OFF POINTS HAVE BEEN ESTABLISHED BASED ON THE FOURTH UNIVERSAL DEFINITIONS OF MYOCARDIAL INFARCTION. THE UPPER REFERENCE LIMIT (URL) OF TROPONIN, DEFINED THE 99TH PERCENTILE OF cTnI DISTRIBUTION IN A REFERENCE POPULATION, HAS BEEN CONFIRMED THE DECISION THRESHOLD FOR ND DIAGNOSIS. Performed By: #### T 4 #### [facility] [address] [place] [address] Dr. Mac Koenig BNPon 07-22-2022 Natriuretic peptide B (Bld) [Mass/Vol] 347.0 pg/mL Normal <=1,800.0 [facility] Comment on above: Performed By: #### L ACT #### [facility] [address] [place] [address] Dr. Mac Koenig CBC AUTO DIFFon 07-22-2022 BASO # 0.1 103/ul Normal 0.0-0.1 [facility] Comment on above: Performed By: #### T 4 #### [facility] [address] [place] [address] Dr. Mac Koenig Basophils/100 WBC (Bld) 0.7 % Normal 0.2-2.0 [facility] Comment on above: Performed By: #### T 4 #### [facility] [address] [place] [address] Dr. Mac Koenig EO # 0.1 103/ul Normal 0.0-0.7 [facility] Comment on above: Performed By: #### T 4 #### [facility] [address] [place] [address] Dr. Mac Koenig Eosinophils/100 WBC (Bld) 1.7 % Normal 0.9-7.0 [facility] Comment on above: Performed By: #### T 4 #### [facility] [address] [place] [address] Dr. Mac Koenig Erythrocyte distribution width (RBC) [Ratio] 13.2 % Normal 11.0-15.0 [facility] Comment on above: Performed By: #### T 4 #### [facility] [address] [place] [address] Dr. Mac Koenig Hematocrit (Bld) [Volume fraction] 37.7 % Normal 36.0-48.0 [facility] Comment on above: Performed By: #### T 4 #### [facility] [address] [place] [address] Dr. Mac Koenig Hemoglobin (Bld) [Mass/Vol] 12.6 g/dL Normal 12.0-16.0 [facility] Comment on above: Performed By: #### T 4 #### [facility] [address] [place] [address] Dr. Mac Koenig IG # 0.03 10e3/ul Normal 0.00-0.03 [facility] Comment on above: Performed By: #### T 4 #### [facility] [address] [place] [address] Dr. Mac Koenig IG % 0.4 % Normal 0.0-0.5 [facility] Comment on above: Performed By: #### T 4 #### [facility] [address] [place] [address] Dr. Mac Koenig LYMPH # 2.6 103/ul Normal 1.2-3.8 [facility] Comment on above: Performed By: #### T 4 #### [facility] [address] [place] [address] Dr. Mac Koenig Lymphocytes/100 WBC (Bld) 31.2 % Normal 20.5-60.0 [facility] Comment on above: Performed By: #### T 4 #### [facility] [address] [place] [address] Dr. Mac Koenig MANUAL DIFF REQ NO Normal [facility] Comment on above: Performed By: #### T 4 #### [facility] [address] [place] [address] Dr. Mac Koenig MCH (RBC) [Entitic mass] 36.5 pg Critically high 26.7-34.0 [facility] Comment on above: Performed By: #### T 4 #### [facility] [address] [place] [address] Dr. Mac Koenig MCHC (RBC) [Mass/Vol] 33.4 g/dL Normal 29.9-35.2 [facility] Comment on above: Performed By: #### T 4 #### [facility] [address] [place] [address] Dr. Mac Koenig MCV (RBC) [Entitic vol] 109.3 fL Critically high 81.0-99.0 [facility] Comment on above: Performed By: #### T 4 #### [facility] [address] [place] [address] Dr. Mac Koenig MONO # 0.5 103/ul Normal 0.3-0.8 [facility] Comment on above: Performed By: #### T 4 #### [facility] [address] [place] [address] Dr. Mac Koenig Monocytes/100 WBC (Bld) 5.5 % Normal 1.7-12.0 [facility] Comment on above: Performed By: #### T 4 #### [facility] [address] [place] [address] Dr. Mac Koenig NEUT # 5.1 103/ul Normal 1.4-6.5 [facility] Comment on above: Performed By: #### T 4 #### [facility] [address] [place] [address] Dr. Mac Koenig Neutrophils/100 WBC (Bld) 60.5 % Normal 43.0-75.0 [facility] Comment on above: Performed By: #### T 4 #### [facility] [address] [place] [address] Dr. Mac Koenig Platelet mean volume (Bld) [Entitic vol] 12.5 fL Normal 9.5-13.5 [facility] Comment on above: Performed By: #### T 4 #### [facility] [address] [place] [address] Dr. Mac Koenig PLT 309 103/ul Normal 150-450 [facility] Comment on above: Performed By: #### T 4 #### [facility] [address] [place] [address] Dr. Mca Koenig RBC 3.45 106/ul Critically low 4.20-5.40 The [facility] Comment on above: Performed By: #### T 4 #### [facility] [address] [place] [address] Dr. Mac Koenig WBC 8.4 103/ul Normal 4.0-11.0 [facility] Comment on above: Performed By: #### T 4 #### [facility] [address] [place] [address] HEAD WO CONon [...] Normal soft tissues. Mastoids are clear. ORBITS: [place] lenses are surgically absent. PARANASAL SINUSES: Normal. IMPRESSION: 1. No acute intracranial abnormality. 2. 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 Electronically authenticated by: BERE FONTENOT Date: 2022-07-22 21:39 Normal [facility] Covid-19 PCR (CVDTBH)on SARS-CoV-2 (COVID-19) RNA CHIQUITA+probe Ql (Unsp spec) Not detected Normal NOT DETECTED [facility] Comment on above: Result Comment: When [...] for this test is supported by the Project Asst of Health and Human Service's declaration that [...] used). Performed By: #### L ACT #### [facility] [address] [place] [address] Dr. Mac Koenig D-DIMERon 07-22-2022 D-DIMER 1.76 mg/L FEU Critically high <=0.59 [facility] Comment on above: Performed By: #### D DIM #### [facility] [address] [place] [address] Dr. Mac Koenig D-DIMER COMMENTS SEE BELOW Normal [facility] Comment on above: Result Comment: Incr [...] hospitalization. Performed By: #### D DIM #### [facility] [address] [place] [address] Dr. Mac Koenig LACTATE/LACTIC ACIDon 2021 Lactate [Moles/Vol] 1.4 mmol/L Normal 0.4-1.9 [facility] Comment on above: Performed By: #### L ACT #### [facility] [address] [place] [address] Dr. Mac Koenig PROF 14(COMP METB)on 022 Albumin [Mass/Vol] 2.8 g/dL Critically low 3.4-5.0 [facility] Comment on above: Performed By: #### L ACT #### [facility] [address] [place] [address] Dr. Mac Koenig Albumin/Globulin [Mass ratio] 0.8 {ratio} Normal [facility] Comment on above: Performed By: #### L ACT #### [facility] [address] [place] [address] Dr. Mac Koenig ALP [Catalytic activity/Vol] 120 U/L Critically high 46-116 [facility] Comment on above: Performed By: #### L ACT #### [facility] [address] [place] [address] Dr. Mac Koenig ALT [Catalytic activity/Vol] 41 U/L Normal 14-59 [facility] Comment on above: Performed By: #### L ACT #### [facility] [address] [address] [address] Mac Koenig Anion gap [Moles/Vol] 6.2 mmol/L Normal [facility] Comment on above: Performed By: #### L ACT #### [facility] [address] [address] [address] Mac Koenig AST [Catalytic activity/Vol] 85 U/L Critically high 15-37 [facility] Comment on above: Performed By: #### L ACT #### [facility] [address] [address] [address] Mac Koenig Bilirubin [Mass/Vol] 0.8 mg/dL Normal 0.2-1.0 [facility] Comment on above: Performed By: #### L ACT #### [facility] [address] [address] [address] Mac Koenig Calcium [Mass/Vol] 8.8 mg/dL Normal 8.5-10.1 [facility] Comment on above: Performed By: #### L ACT #### [facility] [address] [address] [address] Mac Koenig Chloride [Moles/Vol] 99 mmol/L Normal 98-107 [facility] Comment on above: Performed By: #### L ACT #### [facility] [address] [address] [address] Mac Koenig CO2 [Moles/Vol] 32.3 mmol/L Critically high 21.0-32.0 [facility] Comment on above: Performed By: #### L ACT #### [facility] [address] [address] [address] Mac Koenig Creatinine [Mass/Vol] 0.68 mg/dL Normal 0.55-1.02 [facility] Comment on above: Performed By: #### L ACT #### [facility] [address] [address] [address] Mac Koenig EGFR-AF TURKMEN >60 Normal >=60 [facility] Comment on above: Performed By: #### L ACT #### [facility] [address] [address] [address] Mac Koenig EGFR-NON AF TURKMEN >60 Normal >=60 [facility] Comment on above: Performed By: #### L ACT #### [facility] [address] [address] [address] Mac Koenig Globulin (S) [Mass/Vol] 3.6 g/dL Normal [facility] Comment on above: Performed By: #### L ACT #### [facility] [address] [address] [address] Mac Koenig Glucose [Mass/Vol] 118 mg/dL Critically high 74-106 [facility] Comment on above: Performed By: #### L ACT #### [facility] [address] [address] [address] Mac Koenig Potassium [Moles/Vol] 2.5 mmol/L Critically low 3.5-5.1 [facility] Comment on above: Performed By: #### L ACT #### [facility] [address] [address] [address] Mac Koenig Protein [Mass/Vol] 6.4 g/dL Normal 6.4-8.2 [facility] Comment on above: Performed By: #### L ACT #### [facility] [address] [address] [address] Mac Koenig Sodium [Moles/Vol] 133 mmol/L Critically low 136-145 [facility] Comment on above: Performed By: #### L ACT #### [facility] [address] [address] [address] Mac Koenig Urea nitrogen [Mass/Vol] 9.0 mg/dL Normal 7.0-18.0 [facility] Comment on above: Performed By: #### L ACT #### [facility] [address] [address] [address] Mac Koenig Urea nitrogen/Creatinine [Mass ratio] 13.2 mg/mg Normal [facility] Comment on above: Performed By: #### L ACT #### [facility] [address], [place] [address] Dr. Mac Koenig TROPONIN, HIGH SENSITIVITYon 07-22-2022 HSTROP 12.3 pg/mL Normal 4.0-51.3 [facility] Comment on above: Result Comment: CUT- OFF POINTS HAVE BEEN ESTABLISHED BASED ON THE FOURTH UNIVERSAL DEFINITIONS OF MYOCARDIAL INFARCTION. THE UPPER REFERENCE LIMIT (URL) OF TROPONIN, DEFINED THE 99TH PERCENTILE OF cTnI DISTRIBUTION IN A REFERENCE POPULATION, HAS BEEN CONFIRMED THE DECISION THRESHOLD FOR ND DIAGNOSIS. Performed By: #### L ACT #### [facility] [address], [place] [address] Dr. Mac Koenig XR CHEST 1 Von [...] by: PAPA COMER Date: 2022-07-22 21:15 Normal [facility] Encounters Encounter Date Encounter Type Care Provider Facility Start: 01-28-2023 End: 01-28-[address] ROSE DIAZ Facility:[facility] Start: 08-09-2022 End: 08-10-[address] ROSE DIAZ Facility:[facility] Start: 07-23-2022 End: 07-26-[address] ROSE DIAZ Facility:[facility] Payers Date Payer Category Payer Medicaid [id number] 1958 Medicare [id number] 1945 Unknown [id number] 1945 Unknown [id number] 1945 Unknown [id number] Summary Purpose Family History No Family History [...] BE BASED ON THE PRIMARY CLINICAL RECORDS. [facility] [employer] [facility]. provides no warranty or guarantee of the accuracy or completeness of information in this document.
--- OUTSIDE RECORDS SUMMARY | 2024-09-19 12:22 | XMS_ITS | CCD ---
Author Organization [facility] Care Team Providers Care Syrup Mixer Assistant Name Role Phone HOUSE, DR ROSE Primary [...] 01-31-2023 Episodic Other aftercare (1 source) Other alf (current) drug therapy; Translations: [OTH COMMODITIES TRADER CURRENT DRUG THERAPY] Onset: 01-31-2023 Episodic Substance-related [...] # 0.1 103/ul Normal 0.0-0.1 [facility] Comment on above: Performed By: #### C BC #### [facility] [address] [place] [address] Dr. Mac Koenig Basophils/100 WBC (Bld) 0.7 % Normal 0.2-2.0 [facility] Comment on above: Performed By: #### C BC #### [facility] [address] [place] [address] Dr. Mac Koenig EO # 0.3 103/ul Normal 0.0-0.7 [facility] Comment on above: Performed By: #### C BC #### [facility] [address] [place] [address] Dr. Mac Koenig Eosinophils/100 WBC (Bld) 2.9 % Normal 0.9-7.0 [facility] Comment on above: Performed By: #### C BC #### [facility] [address] [place] [address] Dr. Mac Koenig Erythrocyte distribution width (RBC) [Ratio] 13.1 % Normal 11.0-15.0 [facility] Comment on above: Performed By: #### C BC #### [facility] [address] [place] [address] Dr. Mac Koenig Hematocrit (Bld) [Volume fraction] 42.7 % Normal 36.0-48.0 [facility] Comment on above: Performed By: #### C BC #### [facility] [address] [place] [address] Dr. Mac Koenig Hemoglobin (Bld) [Mass/Vol] 13.7 g/dL Normal 12.0-16.0 [facility] Comment on above: Performed By: #### C BC #### [facility] [address] [place] [address] Dr. Mac Koenig IG # 0.04 10e3/ul Critically high 0.00-0.03 [facility] Comment on above: Performed By: #### C BC #### [facility] [address] [place] [address] Dr. Mac Koenig IG % 0.4 % Normal 0.0-0.5 [facility] Comment on above: Performed By: #### C BC #### [facility] [address] [place] [address] Dr. Mac Koenig LYMPH # 3.5 103/ul Normal 1.2-3.8 [facility] Comment on above: Performed By: #### C BC #### [facility] [address] [place] [address] Dr. Mac Koenig Lymphocytes/100 WBC (Bld) 35.1 % Normal 20.5-60.0 [facility] Comment on above: Performed By: #### C BC #### [facility] [address] [place] [address] Dr. Mac Koenig MANUAL DIFF REQ NO Normal [facility] Comment on above: Performed By: #### C BC #### [facility] [address] [place] [address] Dr. Mac Koenig MCH (RBC) [Entitic mass] 33.7 pg Normal 26.7-34.0 [facility] Comment on above: Performed By: #### C BC #### [facility] [address] [place] [address] Dr. Mac Koenig MCHC (RBC) [Mass/Vol] 32.1 g/dL Normal 29.9-35.2 [facility] Comment on above: Performed By: #### C BC #### [facility] [address] [place] [address] Dr. Mac Koenig MCV (RBC) [Entitic vol] 104.9 fL Critically high 81.0-99.0 [facility] Comment on above: Performed By: #### C BC #### [facility] [address] [place] [address] Dr. Mac Koenig MONO # 0.8 103/ul Normal 0.3-0.8 [facility] Comment on above: Performed By: #### C BC #### [facility] [address] [place] [address] Dr. Mac Koenig Monocytes/100 WBC (Bld) 7.6 % Normal 1.7-12.0 [facility] Comment on above: Performed By: #### C BC #### [facility] [address] [place] [address] Dr. Mac Koenig NEUT # 5.3 103/ul Normal 1.4-6.5 [facility] Comment on above: Performed By: #### C BC #### [facility] [address] [place] [address] Dr. Mac Koenig Neutrophils/100 WBC (Bld) 53.3 % Normal 43.0-75.0 [facility] Comment on above: Performed By: #### C BC #### [facility] [address] [place] [address] Dr. Mac Koenig Platelet mean volume (Bld) [Entitic vol] 12.7 fL Normal 9.5-13.5 [facility] Comment on above: Performed By: #### C BC #### [facility] [address] [place] [address] Dr. Mac Koenig PLT 320 103/ul Normal 150-450 [facility] Comment on above: Performed By: #### C BC #### [facility] [address] [place] [address] Dr. Mac Koenig RBC 4.07 106/ul Critically low 4.20-5.40 [facility] Comment on above: Performed By: #### C BC #### [facility] [address] [place] [address] Dr. Mac Koenig WBC 9.9 103/ul Normal 4.0-11.0 [facility] Comment on above: Performed By: #### C BC #### [facility] [address] [place] [address] Dr. Mac Koenig PROF 14(COMP METB)on 023 Albumin [Mass/Vol] 3.3 g/dL Critically low 3.4-5.0 [facility] Comment on above: Performed By: #### C BC #### [facility] [address] [place] [address] Dr. Mac Koenig Albumin/Globulin [Mass ratio] 0.8 {ratio} Normal [facility] Comment on above: Performed By: #### C BC #### [facility] [address] [place] [address] Dr. Mac Koenig ALP [Catalytic activity/Vol] 123 U/L Critically high 46-116 [facility] Comment on above: Performed By: #### C BC #### [facility] [address] [place] [address] Dr. Mac Koenig ALT [Catalytic activity/Vol] 22 U/L Normal 14-59 [facility] Comment on above: Performed By: #### C BC #### [facility] [address] [place] [address] Dr. Mac Koenig Anion gap [Moles/Vol] 8.9 mmol/L Normal [facility] Comment on above: Performed By: #### C BC #### [facility] [address] [address] [address] Mac Koenig AST [Catalytic activity/Vol] 13 U/L Critically low 15-37 [facility] Comment on above: Performed By: #### C BC #### [facility] [address] [address] [address] Mac Koenig Bilirubin [Mass/Vol] 0.3 mg/dL Normal 0.2-1.0 [facility] Comment on above: Performed By: #### C BC #### [facility] [address] [address] [address] Mac Koenig Calcium [Mass/Vol] 9.2 mg/dL Normal 8.5-10.1 [facility] Comment on above: Performed By: #### C BC #### [facility] [address] [address] [address] Mac Koenig Chloride [Moles/Vol] 105 mmol/L Normal 98-107 [facility] Comment on above: Performed By: #### C BC #### [facility] [address] [address] [address] Mac Koenig CO2 [Moles/Vol] 30.3 mmol/L Normal 21.0-32.0 [facility] Comment on above: Performed By: #### C BC #### [facility] [address] [address] [address] Mac Koenig Creatinine [Mass/Vol] 0.89 mg/dL Normal 0.55-1.02 [facility] Comment on above: Performed By: #### C BC #### [facility] [address] [address] [address] Mac Koenig EGFR-AF SALVADOREAN >60 Normal >=60 [facility] Comment on above: Performed By: #### C BC #### [facility] [address] [address] [address] Mac Koenig EGFR-NON AF SALVADOREAN >60 Normal >=60 [facility] Comment on above: Performed By: #### C BC #### [facility] [address] [address] [address] Mac Koenig Globulin (S) [Mass/Vol] 3.9 g/dL Normal [facility] Comment on above: Performed By: #### C BC #### [facility] [address] [address] [address] Mac Koenig Glucose [Mass/Vol] 81 mg/dL Normal 74-106 [facility] Comment on above: Performed By: #### C BC #### [facility] [address] [address] [address] Mac Koenig Potassium [Moles/Vol] 4.2 mmol/L Normal 3.5-5.1 [facility] Comment on above: Performed By: #### C BC #### [facility] [address] [address] [address] Mac Koenig Protein [Mass/Vol] 7.2 g/dL Normal 6.4-8.2 [facility] Comment on above: Performed By: #### C BC #### [facility] [address] [address] [address] Mac Koenig Sodium [Moles/Vol] 140 mmol/L Normal 136-145 [facility] Comment on above: Performed By: #### C BC #### [facility] [address] [address] [address] Mac Koenig Urea nitrogen [Mass/Vol] 14.0 mg/dL Normal 7.0-18.0 [facility] Comment on above: Performed By: #### C BC #### [facility] [address] [address] [address] Mac Koenig Urea nitrogen/Creatinine [Mass ratio] 15.7 mg/mg Normal [facility] Comment on above: Performed By: #### C BC #### [facility] [address] [place] [address] Dr. Mac Koenig TROPONIN, HIGH SENSITIVITYon 01-28-2023 HSTROP 6.4 pg/mL Normal 4.0-51.3 [facility] Comment on above: Result Comment: CUT- OFF POINTS HAVE BEEN ESTABLISHED BASED ON THE FOURTH UNIVERSAL DEFINITIONS OF MYOCARDIAL INFARCTION. THE UPPER REFERENCE LIMIT (URL) OF TROPONIN, DEFINED THE 99TH PERCENTILE OF cTnI DISTRIBUTION IN A REFERENCE POPULATION, HAS BEEN CONFIRMED THE DECISION THRESHOLD FOR TN DIAGNOSIS. Performed By: #### C BC #### [facility] [address] [place] [address] Dr. Mac Koenig XR CHEST 1 Von [...] ISAIAH MICHAELS Date: 2023-01-28 14:36 Normal [facility] BNPon 08-09-2022 Natriuretic peptide B (Bld) [Mass/Vol] 427.0 pg/mL Normal <=1,800.0 [facility] Comment on above: Performed By: #### L ACT #### [facility] [address] [place] [address] Dr. Mac Koenig CARDIAC KARINA 3-6on 2 CK [Catalytic activity/Vol] 30 U/L Normal 26-192 [facility] Comment on above: Performed By: #### T 4 #### [facility] [address] [place] [address] Dr. Mac Koenig CK.MB [Mass/Vol] 1.65 ng/mL Normal <=3.60 [facility] Comment on above: Performed By: #### T 4 #### [facility] [address] [place] [address] Dr. Mac Koenig HSTROP 8.3 pg/mL Normal 4.0-51.3 [facility] Comment on above: Result Comment: CUT- OFF POINTS HAVE BEEN ESTABLISHED BASED ON THE FOURTH UNIVERSAL DEFINITIONS OF MYOCARDIAL INFARCTION. THE UPPER REFERENCE LIMIT (URL) OF TROPONIN, DEFINED THE 99TH PERCENTILE OF cTnI DISTRIBUTION IN A REFERENCE POPULATION, HAS BEEN CONFIRMED THE DECISION THRESHOLD FOR [place] DIAGNOSIS. Performed By: #### T 4 #### [facility] [address] [place] [address] Dr. Mac Koenig CBC AUTO DIFFon 08-09-2022 BASO # 0.1 103/ul Normal 0.0-0.1 [facility] Comment on above: Performed By: #### C BC #### [facility] [address] [place] [address] Dr. Mac Koenig Basophils/100 WBC (Bld) 1.0 % Normal 0.2-2.0 [facility] Comment on above: Performed By: #### C BC #### [facility] [address] [place] [address] Dr. Mac Koenig EO # 0.2 103/ul Normal 0.0-0.7 [facility] Comment on above: Performed By: #### C BC #### [facility] [address] [place] [address] Dr. Mac Koenig Eosinophils/100 WBC (Bld) 2.1 % Normal 0.9-7.0 [facility] Comment on above: Performed By: #### C BC #### [facility] [address] [place] [address] Dr. Mac Koenig Erythrocyte distribution width (RBC) [Ratio] 14.1 % Normal 11.0-15.0 [facility] Comment on above: Performed By: #### C BC #### [facility] [address] [place] [address] Dr. Mac Koenig Hematocrit (Bld) [Volume fraction] 45.2 % Normal 36.0-48.0 [facility] Comment on above: Performed By: #### C BC #### [facility] [address] [place] [address] Dr. Mac Koenig Hemoglobin (Bld) [Mass/Vol] 15.2 g/dL Normal 12.0-16.0 [facility] Comment on above: Performed By: #### C BC #### [facility] [address] [place] [address] Dr. Mac Koenig IG # 0.02 10e3/ul Normal 0.00-0.03 [facility] Comment on above: Performed By: #### C BC #### [facility] [address] [place] [address] Dr. Mac Koenig IG % 0.3 % Normal 0.0-0.5 [facility] Comment on above: Performed By: #### C BC #### [facility] [address] [place] [address] Dr. Mac Koenig LYMPH # 2.7 103/ul Normal 1.2-3.8 [facility] Comment on above: Performed By: #### C BC #### [facility] [address] [place] [address] Dr. Mac Koenig Lymphocytes/100 WBC (Bld) 34.9 % Normal 20.5-60.0 [facility] Comment on above: Performed By: #### C BC #### [facility] [address] [place] [address] Dr. Mac Koenig MANUAL DIFF REQ NO Normal [facility] Comment on above: Performed By: #### C BC #### [facility] [address] [place] [address] Dr. Mac Koenig MCH (RBC) [Entitic mass] 37.1 pg Critically high 26.7-34.0 [facility] Comment on above: Performed By: #### C BC #### [facility] [address] [place] [address] Dr. Mac Koenig MCHC (RBC) [Mass/Vol] 33.6 g/dL Normal 29.9-35.2 [facility] Comment on above: Performed By: #### C BC #### [facility] [address] [place] [address] Dr. Mac Koenig MCV (RBC) [Entitic vol] 110.2 fL Critically high 81.0-99.0 [facility] Comment on above: Performed By: #### C BC #### [facility] [address] [place] [address] Dr. Mac Koenig MONO # 0.5 103/ul Normal 0.3-0.8 [facility] Comment on above: Performed By: #### C BC #### [facility] [address] [place] [address] Dr. Mac Koenig Monocytes/100 WBC (Bld) 6.3 % Normal 1.7-12.0 [facility] Comment on above: Performed By: #### C BC #### [facility] [address] [place] [address] Dr. Mac Koenig NEUT # 4.3 103/ul Normal 1.4-6.5 [facility] Comment on above: Performed By: #### C BC #### [facility] [address] [place] [address] Dr. Mac Koenig Neutrophils/100 WBC (Bld) 55.4 % Normal 43.0-75.0 [facility] Comment on above: Performed By: #### C BC #### [facility] [address] [place] [address] Dr. Mac Koenig Platelet mean volume (Bld) [Entitic vol] 12.1 fL Normal 9.5-13.5 [facility] Comment on above: Performed By: #### C BC #### [facility] [address] [place] [address] Dr. Mac Koenig PLT 459 103/ul Critically high 150-450 [facility] Comment on above: Performed By: #### C BC #### [facility] [address] [place] [address] Dr. Mac Koenig RBC 4.10 106/ul Critically low 4.20-5.40 [facility] Comment on above: Performed By: #### C BC #### [facility] [address] [place] [address] Dr. Mac Koenig WBC 7.7 103/ul Normal 4.0-11.0 [facility] Comment on above: Performed By: #### C BC #### [facility] [address] [place] [address] Dr. Mac Koenig PROF 14(COMP METB)on 11-21-2 022 Albumin [Mass/Vol] 3.7 g/dL Normal 3.4-5.0 [facility] Comment on above: Performed By: #### L ACT #### [facility] [address] [place] [address] Dr. Mac Koenig Albumin/Globulin [Mass ratio] 0.8 {ratio} Normal [facility] Comment on above: Performed By: #### L ACT #### [facility] [address] [address] [address] Mac Koenig ALP [Catalytic activity/Vol] 142 U/L Critically high 46-116 [facility] Comment on above: Performed By: #### L ACT #### [facility] [address] [place] [address] Dr. Mac Koenig ALT [Catalytic activity/Vol] 32 U/L Normal 14-59 [facility] Comment on above: Performed By: #### L ACT #### [facility] [address] [place] [address] Dr. Mac Koenig Anion gap [Moles/Vol] 8.7 mmol/L Normal [facility] Comment on above: Performed By: #### L ACT #### [facility] [address] [place] [address] Dr. Mac Koenig AST [Catalytic activity/Vol] 63 U/L Critically high 15-37 [facility] Comment on above: Performed By: #### L ACT #### [facility] [address] [place] [address] Dr. Mac Koenig Bilirubin [Mass/Vol] 0.4 mg/dL Normal 0.2-1.0 [facility] Comment on above: Performed By: #### L ACT #### [facility] [address] [place] [address] Dr. Mac Koenig Calcium [Mass/Vol] 10.0 mg/dL Normal 8.5-10.1 [facility] Comment on above: Performed By: #### L ACT #### [facility] [address] [place] [address] Dr. Mac Koenig Chloride [Moles/Vol] 99 mmol/L Normal 98-107 [facility] Comment on above: Performed By: #### L ACT #### [facility] [address] [address] [address] Mac Koenig CO2 [Moles/Vol] 31.5 mmol/L Normal 21.0-32.0 [facility] Comment on above: Performed By: #### L ACT #### [facility] [address] [address] [address] Mac Koenig Creatinine [Mass/Vol] 0.73 mg/dL Normal 0.55-1.02 [facility] Comment on above: Performed By: #### L ACT #### [facility] [address] [address] [address] Mac Koenig EGFR-AF SALVADOREAN >60 Normal >=60 [facility] Comment on above: Performed By: #### L ACT #### [facility] [address] [place] [address] Dr. Mac Koenig EGFR-NON AF SALVADOREAN >60 Normal >=60 [facility] Comment on above: Performed By: #### L ACT #### [facility] [address] [place] [address] Dr. Mac Koenig Globulin (S) [Mass/Vol] 4.6 g/dL Normal [facility] Comment on above: Performed By: #### L ACT #### [facility] [address] [place] [address] Dr. Mac Koenig Glucose [Mass/Vol] 110 mg/dL Critically high 74-106 [facility] Comment on above: Performed By: #### L ACT #### [facility] [address] [place] [address] Dr. Mac Koenig Potassium [Moles/Vol] 4.2 mmol/L Normal 3.5-5.1 [facility] Comment on above: Performed By: #### L ACT #### [facility] [address] [place] [address] Dr. Mac Koenig Protein [Mass/Vol] 8.3 g/dL Critically high 6.4-8.2 [facility] Comment on above: Performed By: #### L ACT #### [facility] [address] [address] [address] Mac Koenig Sodium [Moles/Vol] 135 mmol/L Critically low 136-145 [facility] Comment on above: Performed By: #### L ACT #### [facility] [address] [address] [address] Mac Koenig Urea nitrogen [Mass/Vol] 10.0 mg/dL Normal 7.0-18.0 [facility] Comment on above: Performed By: #### L ACT #### [facility] [address] [address] [address] Mac Koenig Urea nitrogen/Creatinine [Mass ratio] 13.7 mg/mg Normal [facility] Comment on above: Performed By: #### L ACT #### [facility] [address] [address] [address] Mac Koenig TROPONIN, HIGH SENSITIVITYon 08-09-2022 HSTROP 9.1 pg/mL Normal 4.0-51.3 [facility] Comment on above: Result Comment: CUT- OFF POINTS HAVE BEEN ESTABLISHED BASED ON THE FOURTH UNIVERSAL DEFINITIONS OF MYOCARDIAL INFARCTION. THE UPPER REFERENCE LIMIT (URL) OF TROPONIN, DEFINED THE 99TH PERCENTILE OF cTnI DISTRIBUTION IN A REFERENCE POPULATION, HAS BEEN CONFIRMED THE DECISION THRESHOLD FOR TN DIAGNOSIS. Performed By: #### L ACT #### [facility] [address] [place] [address] Dr. Mac Koenig XR CHEST 1 Von 08-09-2022 XR CHEST 1 V ONE-VIEW CHEST RADIOGRAPH, 08/09/2022 5:01 PM EST COMPARISON: Chest, 07/22/2022. CLINICAL HISTORY: CHEST PAIN, UNSPECIFIED Findings and impression: 1. No acute cardiopulmonary disease. 2. Normal heart size. 3. No acute osseous abnormality. Electronically authenticated by: Aida BLAKE Date: 2022-08-09 17:54 Normal [facility] CBC AUTO DIFFon 07-26-2022 BASO # 0.0 103/ul Normal 0.0-0.1 [facility] Comment on above: Performed By: #### C BC #### [facility] [address] [address] [address] Mac Koenig Basophils/100 WBC (Bld) 0.3 % Normal 0.2-2.0 [facility] Comment on above: Performed By: #### C BC #### [facility] [address] [place] [address] Dr. Mac Koenig EO # 0.1 103/ul Normal 0.0-0.7 [facility] Comment on above: Performed By: #### C BC #### [facility] [address] [place] [address] Dr. Mac Koenig Eosinophils/100 WBC (Bld) 0.5 % Critically low 0.9-7.0 [facility] Comment on above: Performed By: #### C BC #### [facility] [address] [place] [address] Dr. Mac Koenig Erythrocyte distribution width (RBC) [Ratio] 13.5 % Normal 11.0-15.0 [facility] Comment on above: Performed By: #### C BC #### [facility] [address] [place] [address] Dr. Mac Koenig Hematocrit (Bld) [Volume fraction] 35.5 % Critically low 36.0-48.0 [facility] Comment on above: Performed By: #### C BC #### [facility] [address] [place] [address] Dr. Mac Koenig Hemoglobin (Bld) [Mass/Vol] 12.2 g/dL Normal 12.0-16.0 [facility] Comment on above: Performed By: #### C BC #### [facility] [address] [place] [address] Dr. Mac Koenig IG # 0.03 10e3/ul Normal 0.00-0.03 [facility] Comment on above: Performed By: #### C BC #### [facility] [address] [place] [address] Dr. Mac Koenig IG % 0.3 % Normal 0.0-0.5 [facility] Comment on above: Performed By: #### C BC #### [facility] [address] [place] [address] Dr. Mac Koenig LYMPH # 1.4 103/ul Normal 1.2-3.8 [facility] Comment on above: Performed By: #### C BC #### [facility] [address] [place] [address] Dr. Mac Koenig Lymphocytes/100 WBC (Bld) 13.8 % Critically low 20.5-60.0 [facility] Comment on above: Performed By: #### C BC #### [facility] [address] [place] [address] Dr. Mac Koenig MANUAL DIFF REQ NO Normal [facility] Comment on above: Performed By: #### C BC #### [facility] [address] [place] [address] Dr. Mac Koenig MCH (RBC) [Entitic mass] 36.9 pg Critically high 26.7-34.0 [facility] Comment on above: Performed By: #### C BC #### [facility] [address] [place] [address] Dr. Mac Koenig MCHC (RBC) [Mass/Vol] 34.4 g/dL Normal 29.9-35.2 [facility] Comment on above: Performed By: #### C BC #### [facility] [address] [place] [address] Dr. Mac Koenig MCV (RBC) [Entitic vol] 107.3 fL Critically high 81.0-99.0 [facility] Comment on above: Performed By: #### C BC #### [facility] [address] [place] [address] Dr. Mac Koenig MONO # 0.6 103/ul Normal 0.3-0.8 [facility] [facility] Comment on above: Performed By: #### C BC #### [facility] [address] [place] [address] Dr. Mac Koenig Monocytes/100 WBC (Bld) 5.8 % Normal 1.7-12.0 [facility] Comment on above: Performed By: #### C BC #### [facility] [address] [place] [address] Dr. Mac Koenig NEUT # 8.0 103/ul Critically high 1.4-6.5 [facility] Comment on above: Performed By: #### C BC #### [facility] [address] [address] [address] Mac Koenig Neutrophils/100 WBC (Bld) 79.3 % Critically high 43.0-75.0 [facility] Comment on above: Performed By: #### C BC #### [facility] [address] [address] [address] Mac Koenig Platelet mean volume (Bld) [Entitic vol] 12.9 fL Normal 9.5-13.5 [facility] Comment on above: Performed By: #### C BC #### [facility] [address] [place] [address] Dr. Mac Koenig PLT 199 103/ul Normal 150-450 [facility] Comment on above: Performed By: #### C BC #### [facility] [address] [place] [address] Dr. Mac Koenig RBC 3.31 106/ul Critically low 4.20-5.40 [facility] Comment on above: Performed By: #### C BC #### [facility] [address] [place] [address] Dr. Mac Koenig WBC 10.0 103/ul Normal 4.0-11.0 [facility] Comment on above: Performed By: #### C BC #### [facility] [address] [place] [address] Dr. Mac Koenig ECHOCARDIO M/2D COMPLETEon 1 09-25-2021 ECHOCARDIO M/2D COMPLETE Patient: MICHEAL DAVE Exam Date: 07/26/2022 : 1945 Gender:F Ordering : DR RADHA PETERS . Admission #: [id number] Family : DR ROSE DIAZ D.O. Order #: [id number] CLICK HERE TO VIEW EXAM ECHOCARDIOGRAM REPORT [...] (Peak Sancho): 2.03 cm2, 2.03 cm2 Deceleration Cherokee: 1.52 m/s2 Pressure Half-Time: 594.74 ms Peak [...] on 07/27/2022 at 15:37 Normal [facility] PROF 14(COMP METB)on 022 Albumin [Mass/Vol] 2.4 g/dL Critically low 3.4-5.0 [facility] Comment on above: Performed By: #### C MP #### [facility] [address] [place] [address] Dr. Mac Koenig Albumin/Globulin [Mass ratio] 0.6 {ratio} Normal [facility] Comment on above: Performed By: #### C MP #### [facility] [address] [place] [address] Dr. Mac Koenig ALP [Catalytic activity/Vol] 140 U/L Critically high 46-116 [facility] Comment on above: Performed By: #### C MP #### [facility] [address] [place] [address] Dr. Mac Koenig ALT [Catalytic activity/Vol] 54 U/L Normal 14-59 [facility] Comment on above: Performed By: #### C MP #### [facility] [address] [place] [address] Dr. Mac Koenig Anion gap [Moles/Vol] 11.1 mmol/L Normal [facility] Comment on above: Performed By: #### C MP #### [facility] [address] [address] [address] Mac Koenig AST [Catalytic activity/Vol] 37 U/L Normal 15-37 [facility] Comment on above: Performed By: #### C MP #### [facility] [address] [address] [address] Mac Koenig Bilirubin [Mass/Vol] 0.6 mg/dL Normal 0.2-1.0 [facility] Comment on above: Performed By: #### C MP #### [facility] [address] [address] [address] Mac Koenig Calcium [Mass/Vol] 8.5 mg/dL Normal 8.5-10.1 [facility] Comment on above: Performed By: #### C MP #### [facility] [address] [address] [address] Mac Koenig Chloride [Moles/Vol] 99 mmol/L Normal 98-107 [facility] Comment on above: Performed By: #### C MP #### [facility] [address] [address] [address] Mac Koenig CO2 [Moles/Vol] 27.5 mmol/L Normal 21.0-32.0 [facility] Comment on above: Performed By: #### C MP #### [facility] [address] [address] [address] Mac Koenig Creatinine [Mass/Vol] 0.57 mg/dL Normal 0.55-1.02 [facility] Comment on above: Performed By: #### C MP #### [facility] [address] [address] [address] Mac Koenig EGFR-AF SALVADOREAN >60 Normal >=60 [facility] Comment on above: Performed By: #### C MP #### [facility] [address] [address] [address] Mac Koenig EGFR-NON AF SALVADOREAN >60 Normal >=60 [facility] Comment on above: Performed By: #### C MP #### [facility] [address] [address] [address] Mac Koenig Globulin (S) [Mass/Vol] 3.7 g/dL Normal [facility] Comment on above: Performed By: #### C MP #### [facility] [address] [address] [address] Mac Koenig Glucose [Mass/Vol] 96 mg/dL Normal 74-106 [facility] Comment on above: Performed By: #### C MP #### [facility] [address] [address] [address] Mac Koenig Potassium [Moles/Vol] 3.6 mmol/L Normal 3.5-5.1 [facility] Comment on above: Performed By: #### C MP #### [facility] [address] [address] [address] Mac Koenig Protein [Mass/Vol] 6.1 g/dL Critically low 6.4-8.2 [facility] Comment on above: Performed By: #### C MP #### [facility] [address] [place] [address] Dr. Mac Koenig Sodium [Moles/Vol] 134 mmol/L Critically low 136-145 [facility] Comment on above: Performed By: #### C MP #### [facility] [address] [place] [address] Dr. Mac Koenig Urea nitrogen [Mass/Vol] 7.0 mg/dL Normal 7.0-18.0 [facility] Comment on above: Performed By: #### C MP #### [facility] [address] [place] [address] Dr. Mac Koenig Urea nitrogen/Creatinine [Mass ratio] 12.3 mg/mg Normal [facility] Comment on above: Performed By: #### C MP #### [facility] [address] [place] [address] Dr. Mac Koenig CBC AUTO DIFFon 07-25-2022 BASO # 0.0 103/ul Normal 0.0-0.1 [facility] Comment on above: Performed By: #### C BC #### [facility] [address] [place] [address] Dr. Mac Koenig Basophils/100 WBC (Bld) 0.5 % Normal 0.2-2.0 [facility] Comment on above: Performed By: #### C BC #### [facility] [address] [place] [address] Dr. Mac Koenig EO # 0.1 103/ul Normal 0.0-0.7 [facility] Comment on above: Performed By: #### C BC #### [facility] [address] [place] [address] Dr. Mac Koenig Eosinophils/100 WBC (Bld) 1.0 % Normal 0.9-7.0 [facility] Comment on above: Performed By: #### C BC #### [facility] [address] [place] [address] Dr. Mac Koenig Erythrocyte distribution width (RBC) [Ratio] 13.7 % Normal 11.0-15.0 [facility] Comment on above: Performed By: #### C BC #### [facility] [address] [place] [address] Dr. Mac Koenig Hematocrit (Bld) [Volume fraction] 34.7 % Critically low 36.0-48.0 [facility] Comment on above: Performed By: #### C BC #### [facility] [address] [place] [address] Dr. Mac Koenig Hemoglobin (Bld) [Mass/Vol] 11.7 g/dL Critically low 12.0-16.0 [facility] Comment on above: Performed By: #### C BC #### [facility] [address] [place] [address] Dr. Mac Koenig IG # 0.02 10e3/ul Normal 0.00-0.03 [facility] Comment on above: Performed By: #### C BC #### [facility] [address] [place] [address] Dr. Mac Koenig IG % 0.3 % Normal 0.0-0.5 [facility] Comment on above: Performed By: #### C BC #### [facility] [address] [address] [address] Mac Koenig LYMPH # 1.2 103/ul Normal 1.2-3.8 [facility] Comment on above: Performed By: #### C BC #### [facility] [address] [address] [address] Mac Koenig Lymphocytes/100 WBC (Bld) 15.6 % Critically low 20.5-60.0 [facility] Comment on above: Performed By: #### C BC #### [facility] [address] [address] [address] Mac Koenig MANUAL DIFF REQ NO Normal [facility] Comment on above: Performed By: #### C BC #### [facility] [address] [place] [address] Dr. Mac Koenig MCH (RBC) [Entitic mass] 36.8 pg Critically high 26.7-34.0 [facility] Comment on above: Performed By: #### C BC #### [facility] [address] [place] [address] Dr. Mac Koenig MCHC (RBC) [Mass/Vol] 33.7 g/dL Normal 29.9-35.2 [facility] Comment on above: Performed By: #### C BC #### [facility] [address] [place] [address] Dr. Mac Koenig MCV (RBC) [Entitic vol] 109.1 fL Critically high 81.0-99.0 [facility] Comment on above: Performed By: #### C BC #### [facility] [address] [place] [address] Dr. Mac Koenig MONO # 0.5 103/ul Normal 0.3-0.8 [facility] Comment on above: Performed By: #### C BC #### [facility] [address] [place] [address] Dr. Mac Koenig Monocytes/100 WBC (Bld) 5.9 % Normal 1.7-12.0 [facility] Comment on above: Performed By: #### C BC #### [facility] [address] [address] [address] Mac Koenig NEUT # 6.0 103/ul Normal 1.4-6.5 [facility] Comment on above: Performed By: #### C BC #### [facility] [address] [place] [address] Dr. Mac Koenig Neutrophils/100 WBC (Bld) 76.7 % Critically high 43.0-75.0 [facility] Comment on above: Performed By: #### C BC #### [facility] [address] [place] [address] Dr. Mac Koenig Platelet mean volume (Bld) [Entitic vol] 12.4 fL Normal 9.5-13.5 [facility] Comment on above: Performed By: #### C BC #### [facility] [address] [place] [address] Dr. Mac Koenig PLT 166 103/ul Normal 150-450 [facility] Comment on above: Performed By: #### C BC #### [facility] [address] [place] [address] Dr. Mac Koenig RBC 3.18 106/ul Critically low 4.20-5.40 [facility] Comment on above: Performed By: #### C BC #### [facility] [address] [place] [address] Dr. Mac Koenig WBC 7.8 103/ul Normal 4.0-11.0 [facility] Comment on above: Performed By: #### C BC #### [facility] [address] [place] [address] Dr. Mac Koenig PROF 14(COMP METB)on 022 Albumin [Mass/Vol] 1.9 g/dL Critically low 3.4-5.0 [facility] Comment on above: Performed By: #### T 4 #### [facility] [address] [place] [address] Dr. Mac Koenig Albumin/Globulin [Mass ratio] 0.5 {ratio} Normal [facility] Comment on above: Performed By: #### T 4 #### [facility] [address] [place], [place] [id number] Dr. Mac Koenig ALP [Catalytic activity/Vol] 153 U/L Critically high 46-116 [facility] Comment on above: Performed By: #### T 4 #### [facility] [address] [place] [address] Dr. Mac Koenig ALT [Catalytic activity/Vol] 63 U/L Critically high 14-59 [facility] Comment on above: Performed By: #### T 4 #### [facility] [address] [address] [address] Mac Koenig Anion gap [Moles/Vol] 7.0 mmol/L Normal [facility] Comment on above: Performed By: #### T 4 #### [facility] [address] [place] [address] Dr. Mac Koenig AST [Catalytic activity/Vol] 44 U/L Critically high 15-37 [facility] Comment on above: Performed By: #### T 4 #### [facility] [address] [place] [address] Dr. Mac Koenig Bilirubin [Mass/Vol] 0.6 mg/dL Normal 0.2-1.0 [facility] Comment on above: Performed By: #### T 4 #### [facility] [address] [place] [address] Dr. Mac Koenig Calcium [Mass/Vol] 8.7 mg/dL Normal 8.5-10.1 [facility] Comment on above: Performed By: #### T 4 #### [facility] [address] [place] [address] Dr. Mac Koenig Chloride [Moles/Vol] 104 mmol/L Normal 98-107 [facility] Comment on above: Performed By: #### T 4 #### [facility] [address] [place] [address] Dr. Mca Koenig CO2 [Moles/Vol] 25.4 mmol/L Normal 21.0-32.0 [facility] Comment on above: Performed By: #### T 4 #### [facility] [address] [place] [address] Dr. Mac Koenig Creatinine [Mass/Vol] 0.74 mg/dL Normal 0.55-1.02 [facility] Comment on above: Performed By: #### T 4 #### [facility] [address] [address] [address] Mac Koenig EGFR-AF SALVADOREAN >60 Normal >=60 [facility] Comment on above: Performed By: #### T 4 #### [facility] [address] [address] [address] Mac Koenig EGFR-NON AF SALVADOREAN >60 Normal >=60 [facility] Comment on above: Performed By: #### T 4 #### [facility] [address] [address] [address] Mac Koenig Globulin (S) [Mass/Vol] 3.5 g/dL Normal [facility] Comment on above: Performed By: #### T 4 #### [facility] [address] [place] [address] Dr. Mac Koenig Glucose [Mass/Vol] 80 mg/dL Normal 74-106 [facility] Comment on above: Performed By: #### T 4 #### [facility] [address] [place] [address] Dr. Mac Koenig Potassium [Moles/Vol] 3.4 mmol/L Critically low 3.5-5.1 [facility] Comment on above: Performed By: #### T 4 #### [facility] [address] [place] [address] Dr. Mac Koenig Protein [Mass/Vol] 5.4 g/dL Critically low 6.4-8.2 [facility] Comment on above: Performed By: #### T 4 #### [facility] [address] [place] [address] Dr. Mac Koenig Sodium [Moles/Vol] 133 mmol/L Critically low 136-145 [facility] Comment on above: Performed By: #### T 4 #### [facility] [address] [place] [address] Dr. Mac Koenig Urea nitrogen [Mass/Vol] 12.0 mg/dL Normal 7.0-18.0 [facility] Comment on above: Performed By: #### T 4 #### [facility] [address] [address] [address] Mac Koenig Urea nitrogen/Creatinine [Mass ratio] 16.2 mg/mg Normal [facility] Comment on above: Performed By: #### T 4 #### [facility] [address] [place] [address] Dr. Mac Koenig CBC AUTO DIFFon 07-24-2022 BASO # 0.1 103/ul Normal 0.0-0.1 [facility] Comment on above: Performed By: #### T 4 #### [facility] [address] [place] [address] Dr. Mac Koenig Basophils/100 WBC (Bld) 0.6 % Normal 0.2-2.0 [facility] Comment on above: Performed By: #### T 4 #### [facility] [address] [place] [address] Dr. aMc Koenig EO # 0.0 103/ul Normal 0.0-0.7 [facility] Comment on above: Performed By: #### T 4 #### [facility] [address] [place] [address] Dr. Mac Koenig Eosinophils/100 WBC (Bld) 0.1 % Critically low 0.9-7.0 [facility] Comment on above: Performed By: #### T 4 #### [facility] [address] [place] [address] Dr. Mac Koenig Erythrocyte distribution width (RBC) [Ratio] 13.6 % Normal 11.0-15.0 [facility] Comment on above: Performed By: #### T 4 #### [facility] [address] [place] [address] Dr. Mac Koenig Hematocrit (Bld) [Volume fraction] 34.6 % Critically low 36.0-48.0 [facility] Comment on above: Performed By: #### T 4 #### [facility] [address] [place] [address] Dr. Mac Koenig Hemoglobin (Bld) [Mass/Vol] 11.7 g/dL Critically low 12.0-16.0 [facility] Comment on above: Performed By: #### T 4 #### [facility] [address] [address] [address] Mac Koenig IG # 0.04 10e3/ul Critically high 0.00-0.03 [facility] Comment on above: Performed By: #### T 4 #### [facility] [address] [address] [address] Mac Koenig IG % 0.4 % Normal 0.0-0.5 [facility] Comment on above: Performed By: #### T 4 #### [facility] [address] [address] [address] Mac Koenig LYMPH # 1.1 103/ul Critically low 1.2-3.8 [facility] Comment on above: Performed By: #### T 4 #### [facility] [address] [place] [address] Dr. Mac Koenig Lymphocytes/100 WBC (Bld) 10.1 % Critically low 20.5-60.0 [facility] Comment on above: Performed By: #### T 4 #### [facility] [address] [address] [address] Mac Koenig MANUAL DIFF REQ NO Normal [facility] Comment on above: Performed By: #### T 4 #### [facility] [address] [place] [address] Dr. Mac Koenig MCH (RBC) [Entitic mass] 36.7 pg Critically high 26.7-34.0 [facility] Comment on above: Performed By: #### T 4 #### [facility] [address] [address] [address] Mac Koenig MCHC (RBC) [Mass/Vol] 33.8 g/dL Normal 29.9-35.2 [facility] Comment on above: Performed By: #### T 4 #### [facility] [address] [place] [address] Dr. Mac Koenig MCV (RBC) [Entitic vol] 108.5 fL Critically high 81.0-99.0 [facility] Comment on above: Performed By: #### T 4 #### [facility] [address] [address] [address] Mac Koenig MONO # 0.7 103/ul Normal 0.3-0.8 [facility] Comment on above: Performed By: #### T 4 #### [facility] [address] [address] [address] Mac Koenig Monocytes/100 WBC (Bld) 6.5 % Normal 1.7-12.0 [facility] Comment on above: Performed By: #### T 4 #### [facility] [address] [place] [address] Dr. Mac Koenig NEUT # 8.6 103/ul Critically high 1.4-6.5 [facility] Comment on above: Performed By: #### T 4 #### [facility] [address] [place] [address] Dr. Mac Koenig Neutrophils/100 WBC (Bld) 82.3 % Critically high 43.0-75.0 [facility] Comment on above: Performed By: #### T 4 #### [facility] [address] [place] [address] Dr. Mac Koenig Platelet mean volume (Bld) [Entitic vol] 12.7 fL Normal 9.5-13.5 [facility] Comment on above: Performed By: #### T 4 #### [facility] [address] [place] [address] Dr. Mac Koenig PLT 204 103/ul Normal 150-450 [facility] Comment on above: Performed By: #### T 4 #### [facility] [address] [place] [address] Dr. Mac Koenig RBC 3.19 106/ul Critically low 4.20-5.40 [facility] Comment on above: Performed By: #### T 4 #### [facility] [address] [place] [address] Dr. Mac Koenig WBC 10.4 103/ul Normal 4.0-11.0 [facility] Comment on above: Performed By: #### T 4 #### [facility] [address] [place] [address] Dr. Mac Koenig FREE T3on 07-24-2022 FREE T3 1.50 pg/mlL Critically low 2.18-3.98 [facility] Comment on above: Performed By: #### C BC #### [facility] [address] [place] [address] Dr. Mac Koenig PROF 14(COMP METB)on 022 Albumin [Mass/Vol] 2.4 g/dL Critically low 3.4-5.0 [facility] Comment on above: Performed By: #### T 4 #### [facility] [address] [place] [address] Dr. Mac Koenig Albumin/Globulin [Mass ratio] 0.7 {ratio} Normal [facility] Comment on above: Performed By: #### T 4 #### [facility] [address] [place] [address] Dr. Mac Koenig ALP [Catalytic activity/Vol] 195 U/L Critically high 46-116 [facility] Comment on above: Performed By: #### T 4 #### [facility] [address] [place] [address] Dr. Mac Koenig ALT [Catalytic activity/Vol] 97 U/L Critically high 14-59 [facility] Comment on above: Performed By: #### T 4 #### [facility] [address] [place] [address] Dr. Mac Koenig Anion gap [Moles/Vol] 6.2 mmol/L Normal [facility] Comment on above: Performed By: #### T 4 #### [facility] [address] [place] [address] Dr. Mac Koenig AST [Catalytic activity/Vol] 93 U/L Critically high 15-37 [facility] Comment on above: Performed By: #### T 4 #### [facility] [address] [place] [address] Dr. Mac Koenig Bilirubin [Mass/Vol] 1.2 mg/dL Critically high 0.2-1.0 [facility] Comment on above: Performed By: #### T 4 #### [facility] [address] [address] [address] Mac Koenig Calcium [Mass/Vol] 8.7 mg/dL Normal 8.5-10.1 [facility] Comment on above: Performed By: #### T 4 #### [facility] [address] [address] [address] Mac Koenig Chloride [Moles/Vol] 100 mmol/L Normal 98-107 [facility] Comment on above: Performed By: #### T 4 #### [facility] [address] [place] [address] Dr. Mac Koenig CO2 [Moles/Vol] 31.4 mmol/L Normal 21.0-32.0 [facility] Comment on above: Performed By: #### T 4 #### [facility] [address] [place] [address] Dr. Mac Koenig Creatinine [Mass/Vol] 0.72 mg/dL Normal 0.55-1.02 [facility] Comment on above: Performed By: #### T 4 #### [facility] [address] [place] [address] Dr. Mac Koenig EGFR-AF SALVADOREAN >60 Normal >=60 [facility] Comment on above: Performed By: #### T 4 #### [facility] [address] [place] [address] Dr. Mac Koenig EGFR-NON AF SALVADOREAN >60 Normal >=60 [facility] Comment on above: Performed By: #### T 4 #### [facility] [address] [place] [address] Dr. Mac Koenig Globulin (S) [Mass/Vol] 3.5 g/dL Normal [facility] Comment on above: Performed By: #### T 4 #### [facility] [address] [place] [address] Dr. Mac Koenig Glucose [Mass/Vol] 94 mg/dL Normal 74-106 [facility] Comment on above: Performed By: #### T 4 #### [facility] [address] [place] [address] Dr. Mac Koenig Potassium [Moles/Vol] 3.6 mmol/L Normal 3.5-5.1 [facility] Comment on above: Performed By: #### T 4 #### [facility] [address] [place] [address] Dr. Mac Koenig Protein [Mass/Vol] 5.9 g/dL Critically low 6.4-8.2 [facility] Comment on above: Performed By: #### T 4 #### [facility] [address] [place] [address] Dr. Mac Koenig Sodium [Moles/Vol] 134 mmol/L Critically low 136-145 [facility] Comment on above: Performed By: #### T 4 #### [facility] [address] [place] [address] Dr. Mac Koenig Urea nitrogen [Mass/Vol] 8.0 mg/dL Normal 7.0-18.0 [facility] Comment on above: Performed By: #### T 4 #### [facility] [address] [place] [address] Dr. Mac Koenig Urea nitrogen/Creatinine [Mass ratio] 11.1 mg/mg Normal [facility] Comment on above: Performed By: #### T 4 #### [facility] [address] [place] [address] Dr. Mca Koenig T4on 07-24-2022 T4 [Mass/Vol] 11.00 ug/dL Normal 4.80-13.90 [facility] Comment on above: Performed By: #### T 4 #### [facility] [address] [place] [address] Dr. Mac Koenig TSHon 07-24-2022 TSH 0.596 uIU/mL Normal 0.358-3.740 [facility] Comment on above: Performed By: #### C BC #### [facility] [address] [place] [address] ABD/PELV W CONon [...] JURADO Date: 2022-07-23 05:08 Normal [facility] CTA CHEST WO W CONon 022 CTA CHEST WO W CON EXAMINATION: CTA [facility] ST WO W CON, 07/23/2022 1:39 AM [...] TISH JURADO Date: 2022-07-23 05:01 Normal [facility] URINE PROFILEon 2 Bilirubin Ql (U) Negative Normal NEGATIVE [facility] Comment on above: Performed By: #### T 4 #### [facility] [address] [place] [address] Dr. Mac Koenig Clarity (U) CLEAR Normal CLEAR [facility] Comment on above: Performed By: #### T 4 #### [facility] [address] [place] [address] Dr. Mac Koenig Color (U) LT. YELLOW Normal YELLOW [facility] Comment on above: Performed By: #### T 4 #### [facility] [address] [place] [address] Dr. Mac DEAN A micrscopic examination will be performed if indicated. Normal [facility] Comment on above: Performed By: #### T 4 #### [facility] [address] [place] [address] Dr. Mac Koenig Glucose Ql (U) Negative Normal NEGATIVE [facility] Comment on above: Performed By: #### T 4 #### [facility] [address] [place] [address] Dr. Mac Koenig Hemoglobin Ql (U) Negative Normal NEGATIVE [facility] Comment on above: Performed By: #### T 4 #### [facility] [address] [place] [address] Dr. Mac Koenig Ketones Ql (U) Negative Normal NEGATIVE [facility] Comment on above: Performed By: #### T 4 #### [facility] [address] [place] [address] Dr. Mac Koenig LEUKOCYTES Negative Normal NEGATIVE [facility] Comment on above: Performed By: #### T 4 #### [facility] [address] [place] [address] Dr. Mac Koenig Nitrite Ql (U) Negative Normal NEGATIVE [facility] Comment on above: Performed By: #### T 4 #### [facility] [address] [place] [address] Dr. Mac Koenig pH (U) 6.0 [pH] Normal 5-9 [facility] Comment on above: Performed By: #### T 4 #### [facility] [address] [place] [address] Dr. Mac Koenig SPEC GRAVITY <=1.005 Abnormal 1.005-<=1.025 [facility] Comment on above: Performed By: #### T 4 #### [facility] [address] [place] [address] Dr. Mac Koenig UA PROTEIN Negative Normal NEGATIVE/ TRACE [facility] Comment on above: Performed By: #### T 4 #### [facility] [address] [place] [address] Dr. Mac Koenig UR MICRO IND NOT INDICATED Normal [facility] Comment on above: Performed By: #### T 4 #### [facility] [address] [place] [address] Dr. Mac Koenig Urobilinogen Qn (U) 1.0 {Jd'U}/dL Normal 0.2 - 1. 0 [facility] Comment on above: Performed By: #### T 4 #### [facility] [address] [place] [address] Dr. Mac Koenig LACTATE/LACTIC ACIDon 2021 Lactate [Moles/Vol] 3.1 mmol/L Critically high 0.4-1.9 [facility] Comment on above: Performed By: #### L ACT #### [facility] [address] [place] [address] Dr. Mac Koenig Lactate [Moles/Vol] 3.7 mmol/L Critically high 0.4-1.9 [facility] Comment on above: Performed By: #### T 4 #### [facility] [address] [place] [address] Dr. Mac Koenig Lactate [Moles/Vol] 4.1 mmol/L Critically high 0.4-1.9 [facility] Comment on above: Performed By: #### L ACT #### [facility] [address] [address] [address] Mac Koenig PROF CHEM 8 (BAS METB)on Anion gap [Moles/Vol] 9.0 mmol/L Normal [facility] Comment on above: Performed By: #### T 4 #### [facility] [address] [place] [address] Dr. Mac Koenig Calcium [Mass/Vol] 8.9 mg/dL Normal 8.5-10.1 [facility] Comment on above: Performed By: #### T 4 #### [facility] [address] [place] [address] Dr. Mac Koenig Chloride [Moles/Vol] 101 mmol/L Normal 98-107 [facility] Comment on above: Performed By: #### T 4 #### [facility] [address] [place] [address] Dr. Mac Koenig CO2 [Moles/Vol] 30.0 mmol/L Normal 21.0-32.0 [facility] Comment on above: Performed By: #### T 4 #### [facility] [address] [place] [address] Dr. Mac Koenig Creatinine [Mass/Vol] 0.74 mg/dL Normal 0.55-1.02 [facility] Comment on above: Performed By: #### T 4 #### [facility] [address] [place] [address] Dr. Mac Koenig EGFR-AF SALVADOREAN >60 Normal >=60 [facility] Comment on above: Performed By: #### T 4 #### [facility] [address] [place] [address] Dr. Mac Koenig EGFR-NON AF SALVADOREAN >60 Normal >=60 [facility] Comment on above: Performed By: #### T 4 #### [facility] [address] [place] [address] Dr. Mac Koenig Glucose [Mass/Vol] 133 mg/dL Critically high 74-106 [facility] Comment on above: Performed By: #### T 4 #### [facility] [address] [address] [address] Mac Koenig Potassium [Moles/Vol] 3.0 mmol/L Critically low 3.5-5.1 [facility] Comment on above: Performed By: #### T 4 #### [facility] [address] [place] [address] Dr. Mac Koenig Sodium [Moles/Vol] 137 mmol/L Normal 136-145 [facility] Comment on above: Performed By: #### T 4 #### [facility] [address] [place] [address] Dr. Mac Koenig Urea nitrogen [Mass/Vol] 8.0 mg/dL Normal 7.0-18.0 [facility] Comment on above: Performed By: #### T 4 #### [facility] [address] [place] [address] Dr. Mac Koenig Urea nitrogen/Creatinine [Mass ratio] 10.8 mg/mg Normal [facility] Comment on above: Performed By: #### T 4 #### [facility] [address] [place] [address] Dr. Mac Koenig TROPONIN, HIGH SENSITIVITYon 07-23-2022 HSTROP 26.8 pg/mL Normal 4.0-51.3 [facility] Comment on above: Result Comment: CUT- OFF POINTS HAVE BEEN ESTABLISHED BASED ON THE FOURTH UNIVERSAL DEFINITIONS OF MYOCARDIAL INFARCTION. THE UPPER REFERENCE LIMIT (URL) OF TROPONIN, DEFINED THE 99TH PERCENTILE OF cTnI DISTRIBUTION IN A REFERENCE POPULATION, HAS BEEN CONFIRMED THE DECISION THRESHOLD FOR [place] DIAGNOSIS. Performed By: #### H STROPN #### [facility] [address] [place] [address] Dr. Mac Koenig HSTROP 12.0 pg/mL Normal 4.0-51.3 [facility] Comment on above: Result Comment: CUT- OFF POINTS HAVE BEEN ESTABLISHED BASED ON THE FOURTH UNIVERSAL DEFINITIONS OF MYOCARDIAL INFARCTION. THE UPPER REFERENCE LIMIT (URL) OF TROPONIN, DEFINED THE 99TH PERCENTILE OF cTnI DISTRIBUTION IN A REFERENCE POPULATION, HAS BEEN CONFIRMED THE DECISION THRESHOLD FOR TN DIAGNOSIS. Performed By: #### T 4 #### [facility] [address] [place] [address] Dr. Mac Koenig BNPon 07-22-2022 Natriuretic peptide B (Bld) [Mass/Vol] 347.0 pg/mL Normal <=1,800.0 [facility] Comment on above: Performed By: #### L ACT #### [facility] [address] [place] [address] Dr. Mac Koenig CBC AUTO DIFFon 07-22-2022 BASO # 0.1 103/ul Normal 0.0-0.1 [facility] Comment on above: Performed By: #### T 4 #### [facility] [address] [place] [address] Dr. Mac Koenig Basophils/100 WBC (Bld) 0.7 % Normal 0.2-2.0 [facility] Comment on above: Performed By: #### T 4 #### [facility] [address] [place] [address] Dr. Mac Koenig EO # 0.1 103/ul Normal 0.0-0.7 [facility] Comment on above: Performed By: #### T 4 #### [facility] [address] [place] [address] Dr. Mac Koenig Eosinophils/100 WBC (Bld) 1.7 % Normal 0.9-7.0 [facility] Comment on above: Performed By: #### T 4 #### [facility] [address] [place] [address] Dr. Mac Koenig Erythrocyte distribution width (RBC) [Ratio] 13.2 % Normal 11.0-15.0 [facility] Comment on above: Performed By: #### T 4 #### [facility] [address] [place] [address] Dr. Mac Koenig Hematocrit (Bld) [Volume fraction] 37.7 % Normal 36.0-48.0 [facility] Comment on above: Performed By: #### T 4 #### [facility] [address] [place] [address] Dr. Mac Koenig Hemoglobin (Bld) [Mass/Vol] 12.6 g/dL Normal 12.0-16.0 [facility] Comment on above: Performed By: #### T 4 #### [facility] [address] [place] [address] Dr. Mac Koenig IG # 0.03 10e3/ul Normal 0.00-0.03 [facility] Comment on above: Performed By: #### T 4 #### [facility] [address] [place] [address] Dr. Mac Koenig IG % 0.4 % Normal 0.0-0.5 [facility] Comment on above: Performed By: #### T 4 #### [facility] [address] [place] [address] Dr. Mac Koenig LYMPH # 2.6 103/ul Normal 1.2-3.8 [facility] Comment on above: Performed By: #### T 4 #### [facility] [address] [place] [address] Dr. Mac Koenig Lymphocytes/100 WBC (Bld) 31.2 % Normal 20.5-60.0 [facility] Comment on above: Performed By: #### T 4 #### [facility] [address] [place] [address] Dr. Mac Koenig MANUAL DIFF REQ NO Normal [facility] Comment on above: Performed By: #### T 4 #### [facility] [address] [place] [address] Dr. Mac Koenig MCH (RBC) [Entitic mass] 36.5 pg Critically high 26.7-34.0 [facility] Comment on above: Performed By: #### T 4 #### [facility] [address] [place] [address] Dr. Mac Koenig MCHC (RBC) [Mass/Vol] 33.4 g/dL Normal 29.9-35.2 [facility] Comment on above: Performed By: #### T 4 #### [facility] [address] [place] [address] Dr. Mac Koenig MCV (RBC) [Entitic vol] 109.3 fL Critically high 81.0-99.0 [facility] Comment on above: Performed By: #### T 4 #### [facility] [address] [place] [address] Dr. Mac Koenig MONO # 0.5 103/ul Normal 0.3-0.8 [facility] Comment on above: Performed By: #### T 4 #### [facility] [address] [place] [address] Dr. Mac Koenig Monocytes/100 WBC (Bld) 5.5 % Normal 1.7-12.0 [facility] Comment on above: Performed By: #### T 4 #### [facility] [address] [place] [address] Dr. Mac Koenig NEUT # 5.1 103/ul Normal 1.4-6.5 [facility] Comment on above: Performed By: #### T 4 #### [facility] [address] [place] [address] Dr. Mac Koenig Neutrophils/100 WBC (Bld) 60.5 % Normal 43.0-75.0 [facility] Comment on above: Performed By: #### T 4 #### [facility] [address] [place] [address] Dr. Mac Koenig Platelet mean volume (Bld) [Entitic vol] 12.5 fL Normal 9.5-13.5 [facility] Comment on above: Performed By: #### T 4 #### [facility] [address] [place] [address] Dr. Mac Koenig PLT 309 103/ul Normal 150-450 [facility] Comment on above: Performed By: #### T 4 #### [facility] [address] [place] [address] Dr. Mac Koenig RBC 3.45 106/ul Critically low 4.20-5.40 [facility] Comment on above: Performed By: #### T 4 #### [facility] [address] [place] [address] Dr. Mac Koenig WBC 8.4 103/ul Normal 4.0-11.0 [facility] Comment on above: Performed By: #### T 4 #### [facility] [address] [place] [address] HEAD WO CONon [...] Normal soft tissues. Mastoids are clear. ORBITS: [place] lenses are surgically absent. PARANASAL SINUSES: Normal. IMPRESSION: 1. No acute intracranial abnormality. 2. 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 Electronically authenticated by: BERE FONTENOT Date: 2022-07-22 21:39 Normal [facility] Covid-19 PCR (CVDTBH)on SARS-CoV-2 (COVID-19) RNA CHIQUITA+probe Ql (Unsp spec) Not detected Normal NOT DETECTED [facility] Comment on above: Result Comment: When diagnostic [...] for this test is supported by the [employer] Operator of Health and Human Service's declaration that [...] used). Performed By: #### L ACT #### [facility] [address] [place] [address] Dr. Mac Koenig D-DIMERon 07-22-2022 D-DIMER 1.76 mg/L FEU Critically high <=0.59 [facility] Comment on above: Performed By: #### D DIM #### [facility] [address] [place] [address] Dr. Mac Koenig D-DIMER COMMENTS SEE BELOW Normal [facility] Comment on above: Result Comment: Incr [...] hospitalization. Performed By: #### D DIM #### [facility] [address] [place] [address] Dr. Mac Koenig LACTATE/LACTIC ACIDon 2021 Lactate [Moles/Vol] 1.4 mmol/L Normal 0.4-1.9 [facility] Comment on above: Performed By: #### L ACT #### [facility] [address] [place] [address] Dr. Mac Koenig PROF 14(COMP METB)on 022 Albumin [Mass/Vol] 2.8 g/dL Critically low 3.4-5.0 [facility] Comment on above: Performed By: #### L ACT #### [facility] [address] [place] [address] Dr. Mac Koenig Albumin/Globulin [Mass ratio] 0.8 {ratio} Normal [facility] Comment on above: Performed By: #### L ACT #### [facility] [address] [place] [address] Dr. Mac Koenig ALP [Catalytic activity/Vol] 120 U/L Critically high 46-116 [facility] Comment on above: Performed By: #### L ACT #### [facility] [address] [place] [address] Dr. Mac Koenig ALT [Catalytic activity/Vol] 41 U/L Normal 14-59 [facility] Comment on above: Performed By: #### L ACT #### [facility] [address] [address] [address] Mac Koenig Anion gap [Moles/Vol] 6.2 mmol/L Normal [facility] Comment on above: Performed By: #### L ACT #### [facility] [address] [address] [address] Mac Koenig AST [Catalytic activity/Vol] 85 U/L Critically high 15-37 [facility] Comment on above: Performed By: #### L ACT #### [facility] [address] [address] [address] Mac Koenig Bilirubin [Mass/Vol] 0.8 mg/dL Normal 0.2-1.0 [facility] Comment on above: Performed By: #### L ACT #### [facility] [address] [address] [address] Mac Koenig Calcium [Mass/Vol] 8.8 mg/dL Normal 8.5-10.1 [facility] Comment on above: Performed By: #### L ACT #### [facility] [address] [address] [address] Mac Koenig Chloride [Moles/Vol] 99 mmol/L Normal 98-107 [facility] Comment on above: Performed By: #### L ACT #### [facility] [address] [address] [address] Mac Koenig CO2 [Moles/Vol] 32.3 mmol/L Critically high 21.0-32.0 [facility] Comment on above: Performed By: #### L ACT #### [facility] [address] [address] [address] Mac Koenig Creatinine [Mass/Vol] 0.68 mg/dL Normal 0.55-1.02 [facility] Comment on above: Performed By: #### L ACT #### [facility] [address] [address] [address] Mac Koenig EGFR-AF SALVADOREAN >60 Normal >=60 [facility] Comment on above: Performed By: #### L ACT #### [facility] [address] [address] [address] Mac Koenig EGFR-NON AF SALVADOREAN >60 Normal >=60 [facility] Comment on above: Performed By: #### L ACT #### [facility] [address] [address] [address] Mac Koenig Globulin (S) [Mass/Vol] 3.6 g/dL Normal [facility] Comment on above: Performed By: #### L ACT #### [facility] [address] [address] [address] Mac Koenig Glucose [Mass/Vol] 118 mg/dL Critically high 74-106 [facility] Comment on above: Performed By: #### L ACT #### [facility] [address] [address] [address] Mac Koenig Potassium [Moles/Vol] 2.5 mmol/L Critically low 3.5-5.1 [facility] Comment on above: Performed By: #### L ACT #### [facility] [address] [address] [address] Mac Koenig Protein [Mass/Vol] 6.4 g/dL Normal 6.4-8.2 [facility] Comment on above: Performed By: #### L ACT #### [facility] [address] [address] [address] Mac Koenig Sodium [Moles/Vol] 133 mmol/L Critically low 136-145 [facility] Comment on above: Performed By: #### L ACT #### [facility] [address] [address] [address] Mac Koenig Urea nitrogen [Mass/Vol] 9.0 mg/dL Normal 7.0-18.0 [facility] Comment on above: Performed By: #### L ACT #### [facility] [address] [address] [address] Mac Koenig Urea nitrogen/Creatinine [Mass ratio] 13.2 mg/mg Normal [facility] Comment on above: Performed By: #### L ACT #### [facility] [address] [place], [place] [address] Dr. Mac Koenig TROPONIN, HIGH SENSITIVITYon 07-22-2022 HSTROP 12.3 pg/mL Normal 4.0-51.3 [facility] Comment on above: Result Comment: CUT- OFF POINTS HAVE BEEN ESTABLISHED BASED ON THE FOURTH UNIVERSAL DEFINITIONS OF MYOCARDIAL INFARCTION. THE UPPER REFERENCE LIMIT (URL) OF TROPONIN, DEFINED THE 99TH PERCENTILE OF cTnI DISTRIBUTION IN A REFERENCE POPULATION, HAS BEEN CONFIRMED THE DECISION THRESHOLD FOR TN DIAGNOSIS. Performed By: #### L ACT #### [facility] [address] [place], [place] [address] Dr. Mac Koenig XR CHEST 1 Von [...] COMER Date: 2022-07-22 21:15 Normal [facility] Encounters Encounter Date Encounter Type Care Provider Facility Start: 01-28-2023 End: 01-28-[address] ROSE DIAZ Facility:[facility] Start: 08-09-2022 End: 08-10-[address] ROSE DIAZ Facility:[facility] Start: 07-23-2022 End: 07-26-[address] ROSE DIAZ Facility:[facility] Payers Date Payer Category Payer Medicaid [id number] 1958 Medicare [id number] 1945 Unknown [id number] 1945 Unknown [id number] 1945 Unknown [id number] Summary Purpose Family History No Family History [...] BE BASED ON THE PRIMARY CLINICAL RECORDS. [facility] [employer] [facility]. provides no warranty or guarantee of the accuracy or completeness of information in this document.
[2024-09-19 12:39] LABS: INR 0.97; Prothrombin Time 10.3 sec (9.0-11.6)
--- NOTE | 2024-09-19 13:02 | P.HP_ITS ---
HPI H&P: HPI History of Present Illness Chief complaint: SHORTNESS OF BREATH Narrative: Patient is a resident at an extended care facility, diagnosed with pneumonia yesterday, worsening shortness of breath today, presented emergency room significant respiratory distress and placed on BiPAP. This is secondary to left and right lower lobe pneumonia When I saw patient in the emergency room, she was resting uncomfortably in bed secondary to tachypnea. Her BiPAP was on, she states her breathing is feeling better since she arrived, significant hypoxemia with O2 sat of 87% on 3 L, then placed on BiPAP with success Opioid HPI Opioid Management Most Recent Pain and Opioid Data: Last Pain Scale 3 09/19/24 09:35 09/19/24 Last Pain Assessment 09/19/24 14:00 Last ORT Total Score 0 09/19/24 12:14 09/19/24 Last ORT Risk Category Low Risk 09/19/24 12:14 09/19/24 Review of Systems ROS Status of ROS 10 or more systems reviewed and unremark able except as noted in history and below [facility] Medical History (Updated 09/19/24 @ 11:40 by Tatianna Ryan MD) Hypothyroidism ?E03.9 - Hypothyroidism, unspecified (ICD-10) Hypertension ?I10 - Essential (primary) hypertension (ICD-10) Dementia ?F03.90 - Unspecified dementia, unspecified severity, without behavioral disturbance, psychotic disturbance, mood disturbance, and anxiety (ICD-10) Coronary artery disease ?I25.10 - Atherosclerotic heart disease of redding coronary artery without angina pectoris (ICD-10) Chronic obstructive pulmonary disease ?J44.9 - Chronic obstructive pulmonary disease, unspecified (ICD-10) Social History Highest level of school completed/degree received: high school graduate Meds Home Medications and Allergies Home Medications ?Medication ?Instructions ?Recorded ?Confirmed ?Type albuterol sulfate 0.63 mg/3 mL 0.63 mg inhalation Q4H PRN 09/19/24 09/19/24 History solution for nebulization shortness of breath or wheezing albuterol sulfate 90 mcg/actuation 2 puff inhalation Q4H PRN 09/19/24 09/19/24 History aerosol inhaler shortness of breath or wheezing baclofen 10 mg tablet 10 mg PO TID 09/19/24 09/19/24 History donepezil 10 mg tablet 10 mg PO BEDTIME 09/19/24 09/19/24 History famotidine 20 mg tablet 20 mg PO BEDTIME 09/19/24 09/19/24 History fluticasone furoate 200 1 inh inhalation Q24H 09/19/24 09/19/24 History mcg-vilanterol 25 mcg/dose inhalation powder (Breo Ellipta) levothyroxine 50 mcg tablet 50 mcg PO DAILY 09/19/24 09/19/24 History liothyronine 5 mcg tablet 10 mcg PO DAILY 09/19/24 09/19/24 History loratadine 10 mg capsule (Allergy 10 mg PO DAILY 09/19/24 09/19/24 History Relief (loratadine)) melatonin 3 mg capsule 9 mg PO BEDTIME 09/19/24 09/19/24 History metoprolol tartrate 25 mg tablet 25 mg PO BID 09/19/24 09/19/24 History potassium chloride 10 mEq 10 meq PO BID 09/19/24 09/19/24 History tablet,extended release(part/cryst) sucralfate 1 gram tablet 1 g PO .bidac 09/19/24 09/19/24 History Allergies Allergy/AdvReac Type Severity Reaction Status Date / Time No Known Drug Allergies Allergy Verified 09/19/24 09:14 Exam Constitutional Vital Signs, click to edit/add: Last Vital Signs Temp 98.0 F 09/19/24 12:14 Pulse 88 09/19/24 12:14 Resp 20 09/19/24 12:14 BP 121/71 09/19/24 12:14 Pulse Ox 97 09/19/24 12:15 O2 Del Method Nasal Cannula 09/19/24 12:15 O2 Flow Rate 4 09/19/24 12:15 FiO2 35 09/19/24 09:40 Documenting provider has reviewed patient's vital signs: yes Common normals: apparent distress (Moderate respiratory distress) Respiratory Common normals: abnormal respiratory effort (Moderate respiratory distress) Auscultation: rhonchi and wheezes Cardio Common normals: regular rate and regular rhythm GI Common normals: Normal to inspection, nondistended, normoactive bowel sounds present Extremity Common normals: normal to inspection Results Labs Labs: Short CBC 09/19/24 Range/Units 10:46 WBC 22.8 H (4.0-11.0) 10^3/uL Hgb 14.4 (12.0-16.0) g/dL Hct 44.4 (36.0-48.0) % Plt Count 234 (150-450) 10^3/uL BMP 09/19/24 10:46 Sodium 139 Potassium 3.8 Chloride 100 Carbon Dioxide 26.3 BUN 13.0 Creatinine 0.76 Glucose 148 H Calcium 9.6 Liver Function 09/19/24 Range/Units 10:46 Total Bilirubin 1.0 (0.2-1.0) mg/dL AST 13 L (15-37) U/L ALT 16 (14-59) U/L Alkaline Phosphatase 113 (46-116) U/L Albumin 3.0 L (3.4-5.0) g/dL ABG ABG results: 09/19/24 09:53 ABG pH 7.425 ABG pCO2 43.0 ABG pO2 88.8 ABG HCO3 28.2 H ABG O2 Saturation 97.8 ABG Base Excess 3.8 H Assessment and Plan Assessment and Plan (1) Pneumonia: (2) Respiratory failure: (3) COPD exacerbation: (4) Hypothyroidism: (5) Dementia: (6) Hypertension: Plan Admission findings: Tachycardia, respiratory distress, acute hypoxic respiratory failure requiring BiPAP (O2 sat 87% on 3 L), leukocytosis, due to bilateral lower lobe pneumonia causing an acute exacerbation of COPD and leading to sepsis (tachycardia, respiratory distress, leukocytosis and known infectious source of pneumonia) Sepsis due to bilateral nosocomial lower lobe pneumonia with acute exacerbation of COPD-steroids, aerosols, IV antibiotics, broad-spectrum secondary to location and extended-care facility and possible nosocomial pneumonia Hyperglycemia-monitor closely secondary to the use of steroids likely to deteriorate Dementia-continue with home medications GERD-continue with home medications Hypothyroidism-check levels, continue with home medications Hypertension by history-continue home medications, may need to hold if hypoten sive Insomnia-continue with home medications Admission status: Patient with failed outpatient treatment of bilateral lower lobe pneumonia from an extended care facility resulting in acute hypoxic respiratory failure requiring BiPAP, and acute exacerbation of COPD. Admitted to the intensive care unit. Medically necessary treatment will span 2 midnights. Inpatient status.
[2024-09-19] MEDS: ALBUTEROL SULFATE 2.5 MG/3 ML VIAL NEB IH (14:06)
--- NOTE | 2024-09-19 14:21 | RESP.RT ---
Attempted to put patient back on Bipap but patient not tolerating
[2024-09-19 14:22] LABS: Lactate/Lactic Acid 2.3 mmol/L (0.4-2.0)
[2024-09-19] MEDS: PIPERACILLIN SODIUM/TAZOBACTAM 3.375 GM in 0.9 % SODIUM CHLORIDE 50 ML IV ×2 (14:25→21:01)
[2024-09-19] MEDS: BACLOFEN 10 MG TABLET PO ×2 (14:30→21:01)
[2024-09-19 14:33] LABS: Thyroid Stimulating Hormone 6.385 uIU/mL (0.358-3.740)
[2024-09-19] MEDS: METHYLPREDNISOLONE SOD SUCC PF 125 MG/2 ML VIAL IVP ×2 (14:43→19:49)
[2024-09-19 16:09] LABS: Bilirubin Urine NEGATIVE (NEGATIVE); Blood Urine NEGATIVE (NEGATIVE); Clarity Urine CLEAR (CLEAR); Color Urine LT. YELLOW (YELLOW); Glucose Urine UA NEGATIVE (NEGATIVE); Ketones Urine NEGATIVE (NEGATIVE); Leukocyte Esterase Urine NEGATIVE (NEGATIVE); Nitrite Urine NEGATIVE (NEGATIVE); Protein Urine TRACE mg/dL (NEG/TRACE); Specific Gravity Urine 1.025 (1.005-1.025); Urobilinogen Urine 0.2 EU/dL (0.2-1.0)
[2024-09-19 16:33] LABS: Bacteria Urine TRACE #/HPF (NONE SEEN); Cast Seen? NONE SEEN #/LPF (NONE SEEN); Crystals Seen? None Seen #/HPF (None Seen); Mucus Urine TRACE (NONE SEEN); RBC Urine 0-2 #/HPF (0-2); Squamous Epithelial Cell Urine FEW #/LPF (NONE/RARE); Urine Culture Indicated NO; WBC Urine 0-2 #/HPF (NONE SEEN)
--- NOTE | 2024-09-19 17:40 | RESP.RT ---
Pt experiencing SOB but refuses bipap
--- NOTE | 2024-09-19 17:50 | PC.NURSE ---
Patient agitated and complaining she cant breathe. O2 on at 4 L NC. SPO@ 94%. RR34 with audible wheezes. CPS present at bedside and patient returned to BIPAP at previos settings. Dr Dalla made aware and ABG's ordered for 1899. Patient now resting with eyes closed
--- NOTE | 2024-09-19 17:55 | RESP.RT ---
Titrated pressure to 10/5 for pt comfort
[2024-09-19 17:56] LABS: Lactate/Lactic Acid 2.6 mmol/L (0.4-2.0)
[2024-09-19 19:08] LABS: ABG PCO2 44.6 mmHg (35.0-45.0); Allen Test POSITIVE (POSITIVE); Base Excess ABG 3.7 mmol/L (-2.0-2.0); HCO3 ABG 28.3 mmol/L (22.0-26.0); Oxygen Saturation ABG 96.3 %; PO2 ABG 76.9 mmHg (80.0-100.0); pH ABG 7.411 (7.350-7.450)
[2024-09-19 19:09] LABS: Fractionated Inspired Oxygen 35 %; O2 Mode BIPAP; Puncture Site R RADIAL; Rate 16
[2024-09-19] MEDS: 0.9 % SODIUM CHLORIDE 1,000 ML 500 ML IV (19:46)
[2024-09-19] MEDS: LORAZEPAM 2 MG/ML VIAL 0.5 MG IV (19:49)
[2024-09-19] MEDS: SUCRALFATE 1 GM TABLET PO (21:01)
[2024-09-19] MEDS: FAMOTIDINE 20 MG TABLET PO (21:01)
[2024-09-19] MEDS: POTASSIUM CHLORIDE 10 MEQ ER TABLET PO (21:01)
[2024-09-19] MEDS: DONEPEZIL HCL 10 MG TABLET PO (21:01)
[2024-09-19] MEDS: METOPROLOL TARTRATE 25 MG TABLET PO (21:01)
[2024-09-19] MEDS: BUDESONIDE 0.5 MG/2 ML AMPULE NEB IH (22:24)
[2024-09-20] VITALS (24 sets, daily range): BP systolic 112–130; BP diastolic 60–84; PULSE 62–127; RESP 16; TEMP 36.3–37.1; O2SAT 85–99
[2024-09-20] MEDS: METHYLPREDNISOLONE SOD SUCC PF 125 MG/2 ML VIAL IVP ×4 (02:11→20:03)
[2024-09-20] MEDS: IPRATROPIUM/ALBUTEROL SULFATE 3 ML AMPUL.NEB IH ×4 (04:50→22:01)
[2024-09-20] MEDS: BACLOFEN 10 MG TABLET PO ×3 (05:36→21:05)
[2024-09-20] MEDS: LIOTHYRONINE SODIUM 5 MCG TABLET 10 MCG PO (05:36)
[2024-09-20] MEDS: PIPERACILLIN SODIUM/TAZOBACTAM 3.375 GM in 0.9 % SODIUM CHLORIDE 50 ML IV ×3 (05:36→21:05)
[2024-09-20] MEDS: LEVOTHYROXINE SODIUM 25 MCG TABLET 50 MCG PO (05:37)
[2024-09-20 05:48] LABS: Basophils Percent Auto 0.1 % (0.2-2.0); Hematocrit 41.4 % (36.0-48.0); Hemoglobin 13.2 g/dL (12.0-16.0); Immature Granulocytes Abs Auto 0.21 10^3/uL (0.00-0.03); Lymphocytes Absolute Auto 0.7 10^3/uL (1.2-3.8); Lymphocytes Percent Auto 3.3 % (20.5-60.0); Mean Corpuscular HGB Conc 31.9 g/dL (29.9-35.2); Mean Corpuscular Hemoglobin 31.8 pg (26.7-34.0); Mean Corpuscular Volume 99.8 fL (81.0-99.0); Mean Platelet Volume 12.7 fL (9.5-13.5); Monocytes Absolute Auto 0.3 10^3/uL (0.3-0.8); Monocytes Percent Auto 1.3 % (1.7-12.0); Neutrophils Absolute Auto 19.1 10^3/uL (1.4-6.5); Neutrophils Percent Auto 94.3 % (43.0-75.0); Platelet Count 257 10^3/uL (150-450); Red Blood Count 4.15 10^6/uL (4.20-5.40); Red Cell Distribution Width 13.4 % (11.0-15.0); White Blood Count 20.3 10^3/uL (4.0-11.0)
[2024-09-20 05:58] LABS: Anion Gap 11.8; BUN Creatinine Ratio 10.8; Calcium 9.6 mg/dL (8.5-10.1); Carbon Dioxide 32.1 mmol/L (21.0-32.0); Chloride 103 mmol/L (98-107); Estimated GFR (African America >60 (>=60 mL/min/1.73m^2); Estimated GFR (Non-African Ame >60 (>=60 mL/min/1.73m^2); Glucose 154 mg/dL (74-106); Potassium 3.9 mmol/L (3.5-5.1); Sodium 143 mmol/L (136-145)
[2024-09-20] MEDS: METOPROLOL TARTRATE 25 MG TABLET PO ×2 (08:05→20:36)
[2024-09-20] MEDS: SUCRALFATE 1 GM TABLET PO ×2 (08:05→20:36)
[2024-09-20] MEDS: POTASSIUM CHLORIDE 10 MEQ ER TABLET PO ×2 (08:05→20:36)
[2024-09-20] MEDS: CETIRIZINE HCL 10 MG TABLET PO (08:06)
--- NOTE | 2024-09-20 08:48 | CT_ITS ---
[address] [address] Patient Name: MICHEAL DAVE MRN: [id number] date: 1945 Sex: F Assigned Patient Location: ICU Current Patient Location: ICU Accession/Order Number: [id number] Exam Date: 09/20/2024 09:00 Report Date: 09/20/2024 11:18 At the request of: RADHA PETERS Procedure: CT angio chest EXAMINATION: CT angio chest HISTORY: acute hypoxia COMPARISON: 09/19/2024 chest x-ray TECHNIQUE: Multi-planar CT images were created with IV contrast. Axial, Coronal, and Sagittal images. Dose reduction techniques were achieved by using automated exposure control and/or adjustment of mA and/or kV according to patient size and/or use of iterative reconstruction technique. FINDINGS: LUNGS: Scattered infiltrates identified throughout both lungs with patchy and nodular densities. PLEURA: No mass, effusion, or pneumothorax. VASCULATURE: Normal postcontrast opacification of central pulmonary arterial tree with no filling defect to suggest a pulmonary embolus JOSE: No mass or adenopathy. MEDIASTINUM: No mass or adenopathy. CARDIAC: No enlargement or pericardial effusion Coronary arteries: Moderate calcifications AORTA: No aortic aneurysm or dissection. Moderate calcific atherosclerosis CHEST WALL: No mass or axillary adenopathy. BONES: No bone lesion or fracture. LIMITED ABDOMEN: No suspicious findings. Limited images of the upper abdomen. OTHER: Negative. CT/CT angio chest IMPRESSION: Bilateral multifocal pneumonia No central pulmonary thromboembolic disease Electronically authenticated by: PAPA BURK Date: 09/20/2024 11:18
--- NOTE | 2024-09-20 08:50 | P.PN_ITS ---
Progress Note: Subjective Subjective Interval history: Patient looks much improved today, up in chair, does get significant hypoxia with any activity though into the low 80s Exam Narrative Exam Narrative: Patient looks much improved today, up in chair, does get significant hypoxia with any activity though into the low 80s Constitutional Vital Signs, click to edit/add: Last Vital Signs Temp 98.0 F 09/20/24 08:00 Pulse 103 H 09/20/24 08:00 Resp 24 H 09/20/24 08:00 BP 112/65 09/20/24 08:00 Pulse Ox 94 L 09/20/24 08:00 O2 Del Method Nasal Cannula 09/20/24 08:00 O2 Flow Rate 3 09/20/24 08:00 FiO2 35 09/20/24 02:45 Documenting provider has reviewed patient's vital signs: yes Common normals: apparent distress (Respiratory distress but much improved) Chest Common normals: inspection of chest normal Respiratory Auscultation: rhonchi and wheezes Cardio Common normals: regular rate and regular rhythm Progress Note: Objective Labs Labs: Short CBC 09/19/24 09/20/24 Range/Units 10:46 04:47 WBC 22.8 H 20.3 H (4.0-11.0) 10^3/uL Hgb 14.4 13.2 (12.0-16.0) g/dL Hct 44.4 41.4 (36.0-48.0) % Plt Count 234 257 (150-450) 10^3/uL BMP 09/19/24 09/20/24 10:46 04:47 Sodium 139 143 Potassium 3.8 3.9 Chloride 100 103 Carbon Dioxide 26.3 32.1 H BUN 13.0 9.0 Creatinine 0.76 0.83 Glucose 148 H 154 H Calcium 9.6 9.6 Liver Function 09/19/24 Range/Units 10:46 Total Bilirubin 1.0 (0.2-1.0) mg/dL AST 13 L (15-37) U/L ALT 16 (14-59) U/L Alkaline Phosphatase 113 (46-116) U/L Albumin 3.0 L (3.4-5.0) g/dL Urine 09/19/24 Range/Units 15:50 Urine Color Lt. yellow (YELLOW) Urine Clarity Clear (CLEAR) Urine pH 6.0 (5.0-9.0) Ur Specific [place] 1.025 (1.005-1.025) Urine Protein Trace (NEG/TRACE) mg/dL Urine Glucose (UA) Negative (NEGATIVE) mg/dL Progress Note: A&P Assessment and Plan (1) Pneumonia: (2) Respiratory failure: (3) COPD exacerbation: (4) Hypothyroidism: (5) Dementia: (6) Hypertension: Plan Admission findings: Tachycardia, respiratory distress, acute hypoxic respiratory failure requiring BiPAP (O2 sat 87% on 3 L), leukocytosis, due to bilateral lower lobe pneumonia causing an acute exacerbation of COPD and leading to sepsis (tachycardia, respiratory distress, leukocytosis and known infectious source of pneumonia) Sepsis due to bilateral nosocomial lower lobe pneumonia with acute exacerbation of COPD-steroids, aerosols, IV antibiotics, broad-spectrum secondary to location and extended-care facility and possible nosocomial pneumonia -overall is improved, with severe worsening with any ambulation, did check CTA, no blood clots, just a bilateral pneumonia Hyperglycemia-monitor closely secondary to the use of steroids likely to deteriorate Dementia-continue with home medications, worsening, will add IV lorazepam and Geodon as needed GERD-continue with home medications Hypothyroidism-check levels, continue with home medications Hypertension by history-continue home medications, may need to hold if hypotensive Insomnia-continue with home medications Admission status: Patient with failed outpatient treatment of bilateral lower lobe pneumonia from an extended care facility resulting in acute hypoxic respiratory failure requiring BiPAP, and acute exacerbation of COPD. Admitted to the intensive care unit. Medically necessary treatment will span 2 midnights. Inpatient status. ?
--- NOTE | 2024-09-20 09:44 | CM.NOTE ---
Rounds made with Dr. Dalal, pt now back to baseline oxygen. Pt from [facility], no discharge today.
[2024-09-20] MEDS: LEVOFLOXACIN IN DEXTROSE 5 % 750 MG/150 ML PREMIX 100 MG IV (10:01)
--- NOTE | 2024-09-20 10:10 | SWNOTE1 ---
SHAYY spoke to case management and pt is from [facility]. SHAYY reached out to Laura at [facility] and pt is there manager terminal under her Medicaid. If she is here inpt for 3 midnights they will try to skill her. SHAYY to send updates. No discharge today.
[2024-09-20] MEDS: BUDESONIDE 0.5 MG/2 ML AMPULE NEB IH ×2 (10:35→22:01)
[2024-09-20] MEDS: ENSURE ORIGINAL 237 ML BOTTLE PO ×2 (11:13→20:03)
--- NOTE | 2024-09-20 12:01 | SWNOTE1 ---
SW stopped in to speak with pt, pt's friends son was in room as well. Pt has been at [facility] for about 2 years and voiced she likes it there and plans on returning at discharge. SHAYY asked if she could review Medicare paper with pt, but after conversing, SHAYY decided to complete IMM with pt's son by calling him. SHAYY to send updated to [facility].
--- NOTE | 2024-09-20 12:38 | SWNOTE1 ---
Important Message from Medicare reviewed and discussed with patient's son over the phone. Pt's son verbalized understanding and SW signed the form that it was reviewed with son. Original placed in pt's room and copy placed in patient?s chart.
--- NOTE | 2024-09-20 13:26 | PC.NURSE ---
patient missed the hat urinated in the toilet bowl
[2024-09-20] MEDS: ALBUTEROL SULFATE 2.5 MG/3 ML VIAL NEB IH (14:22)
[2024-09-20] MEDS: LORAZEPAM 2 MG/ML VIAL 0.5 MG IV ×2 (14:33→23:41)
[2024-09-20] MEDS: ZIPRASIDONE MESYLATE 20 MG VIAL IM (20:37)
[2024-09-20] MEDS: WATER FOR INJECTION, STERILE 20 ML VIAL INJ (20:37)
[2024-09-20] MEDS: FAMOTIDINE 20 MG TABLET PO (21:05)
[2024-09-20] MEDS: OLANZAPINE 10 MG VIAL 5 MG IM (23:42)
[2024-09-21] VITALS (124 sets, daily range): BP systolic 93–138; BP diastolic 49–82; PULSE 49–137; RESP 16; TEMP 36.4–37.1; O2SAT 82–100
[2024-09-21] MEDS: METHYLPREDNISOLONE SOD SUCC PF 125 MG/2 ML VIAL IVP ×2 (02:47→07:35)
[2024-09-21] MEDS: IPRATROPIUM/ALBUTEROL SULFATE 3 ML AMPUL.NEB IH ×4 (04:46→23:00)
[2024-09-21] MEDS: LEVOTHYROXINE SODIUM 25 MCG TABLET 50 MCG PO (05:43)
[2024-09-21] MEDS: LIOTHYRONINE SODIUM 5 MCG TABLET 10 MCG PO (05:44)
[2024-09-21] MEDS: PIPERACILLIN SODIUM/TAZOBACTAM 3.375 GM in 0.9 % SODIUM CHLORIDE 50 ML IV ×3 (05:44→21:07)
[2024-09-21] MEDS: BACLOFEN 10 MG TABLET PO ×3 (05:44→21:04)
[2024-09-21 07:40] LABS: Anion Gap 10.6; BUN Creatinine Ratio 16.9; Calcium 9.7 mg/dL (8.5-10.1); Carbon Dioxide 30.2 mmol/L (21.0-32.0); Chloride 108 mmol/L (98-107); Estimated GFR (African America >60 (>=60 mL/min/1.73m^2); Estimated GFR (Non-African Ame >60 (>=60 mL/min/1.73m^2); Glucose 159 mg/dL (74-106); Potassium 3.8 mmol/L (3.5-5.1); Sodium 145 mmol/L (136-145)
[2024-09-21 08:05] LABS: Hematocrit 38.1 % (36.0-48.0); Hemoglobin 12.3 g/dL (12.0-16.0); Mean Corpuscular HGB Conc 32.3 g/dL (29.9-35.2); Mean Corpuscular Hemoglobin 32.6 pg (26.7-34.0); Mean Corpuscular Volume 101.1 fL (81.0-99.0); Mean Platelet Volume 12.5 fL (9.5-13.5); Platelet Count 254 10^3/uL (150-450); Red Blood Count 3.77 10^6/uL (4.20-5.40); Red Cell Distribution Width 13.7 % (11.0-15.0); White Blood Count 23.9 10^3/uL (4.0-11.0)
[2024-09-21 08:25] LABS: Band Neutrophils Absolute 0.5 10^3/uL (0.0-0.3); Lymphocytes Absolute Manual 1.43 10^3/uL (1.20-3.80); Monocytes Absolute Manual 0.95 10^3/uL (0.30-0.80); Segmented Neut Absolute Manual 21.03 10^3/uL (1.4-6.5)
--- NOTE | 2024-09-21 09:06 | CM.NOTE ---
Rounds made with Dr. Dalal. Willa was placed on BIPAP. No discharge today.
[2024-09-21] MEDS: BUDESONIDE 0.5 MG/2 ML AMPULE NEB IH ×2 (09:55→23:00)
--- NOTE | 2024-09-21 10:27 | P.PN_ITS ---
Progress Note: Subjective Subjective Interval history: Patient is a very difficult evening with exacerbation of her dementia, given multiple medications for sedation, currently sedated on BiPAP with good saturations Exam Narrative Exam Narrative: Patient looks much improved today, up in chair, does get significant hypoxia with any activity though into the low 80s Constitutional Vital Signs, click to edit/add: Last Vital Signs Temp 97.5 F L 09/21/24 03:00 Pulse 60 09/21/24 10:00 Resp 19 09/21/24 08:20 BP 105/51 09/21/24 07:23 Pulse Ox 98 09/21/24 10:00 O2 Del Method BIPAP 09/21/24 07:00 O2 Flow Rate 4 09/20/24 23:00 FiO2 35 09/21/24 04:48 Documenting provider has reviewed patient's vital signs: yes Common normals: no apparent distress (sedated) Chest Common normals: inspection of chest normal Respiratory Auscultation: rhonchi and wheezes Cardio Common normals: regular rate and regular rhythm Progress Note: Objective Labs Labs: Short CBC 09/21/24 Range/Units 07:23 WBC 23.9 H (4.0-11.0) 10^3/uL Hgb 12.3 (12.0-16.0) g/dL Hct 38.1 (36.0-48.0) % Plt Count 254 (150-450) 10^3/uL BMP 09/21/24 07:23 Sodium 145 Potassium 3.8 Chloride 108 H Carbon Dioxide 30.2 BUN 13.0 Creatinine 0.77 Glucose 159 H Calcium 9.7 Progress Note: A&P Assessment and Plan (1) Pneumonia: (2) Respiratory failure: (3) COPD exacerbation: (4) Hypothyroidism: (5) Dementia: (6) Hypertension: Plan Admission findings: Tachycardia, respiratory distress, acute hypoxic respiratory failure requiring BiPAP (O2 sat 87% on 3 L), leukocytosis, due to bilateral lower lobe pneumonia causing an acute exacerbation of COPD and leading to sepsis (tachycardia, respiratory distress, leukocytosis and known infectious source of pneumonia) Sepsis due to bilateral nosocomial lower lobe pneumonia with acute exacerbation of COPD-steroids, aerosols, IV antibiotics, broad-spectrum secondary to location and extended-care facility and possible nosocomial pneumonia -from a number standpoint things are somewhat better, white blood cell count is still little bit elevated will adjust antibiotics today. Patient currently not having respiratory distress due to sedation Hyperglycemia-monitor closely secondary to the use of steroids likely to deteriorate-continue with insulin sliding scale Dementia-continue with home medications, worsening, sedated currently, will change patient to oral Zyprexa and hopefully have a more mild affect but still be effective GERD-continue with home medications Hypothyroidism-check levels, adjust medications Hypertension by history-continue home medications, may need to hold if hypotensive Insomnia-continue with home medications Admission status: Patient with failed outpatient treatment of bilateral lower lobe pneumonia from an extended care facility resulting in acute hypoxic respiratory failure requiring BiPAP, and acute exacerbation of COPD. Admitted to the intensive care unit. Medically necessary treatment will span 2 midnights. Inpatient status. ?
--- NOTE | 2024-09-21 10:29 | XR_ITS ---
The [address] [address] Patient Name: MICHEAL DAVE MRN: [id number] date: 1945 Sex: F Assigned Patient Location: ICU Current Patient Location: ICU Accession/Order Number: [id number] Exam Date: 09/21/2024 10:40 Report Date: 09/21/2024 11:50 At the request of: RADHA PETERS Procedure: XR chest 1V EXAM: Portable chest REASON FOR EXAM: Follow-up multifocal pneumonia. TECHNIQUE: A portable frontal view of the chest was obtained. COMPARISON: 09/19/2024. FINDINGS: The lungs are well-inflated. The hazy appearance in both lung bases is grossly unchanged, although the left side could be due to a large pericardial fat pad. The heart and mediastinum are stable in appearance. There is no mass or pathologic adenopathy. Osseous structures are normal. XR/XR chest 1V IMPRESSION: Overall stable exam. Electronically authenticated by: TISH ACEVEDO Date: 09/21/2024 11:50
--- NOTE | 2024-09-21 11:17 | SWNOTE1 ---
SHAYY spoke with Laura at [facility] and they will skill pt when she returns to [facility] to get some strengthening. SW to let son know. No discharge today.
--- NOTE | 2024-09-21 11:26 | PT.DAILY ---
Physical Therapy Daily Note PT Daily Note/Assess Start: 09/21/24 11:13 Freq: Status: Active Protocol: Document 09/21/24 11:14 MADISYN (Rec: 09/21/24 11:26 MADISYN [id number]) Physical Therapy Daily Note/Assessment Time In/Time Out Time In 11:00 Time Out 11:10 Pain In Pain N/A Pain Out Pain N/A Subjective Subjective Pt supine with BIPAP on SPO2 99%. Agreeable to bed level ther ex. Therapeutic Exercise Time Therapeutic Exercise 8 Minutes (minutes) Therapeutic Exercise 1 Units Therapeutic Exercise Treatment Therapeutic Exercise Pt performs bilat AP, QS, heel slides, abd slides, SLR, Treatment SAQ, hooklying add squeezes and bridges 10x ea. Pt needs multiple cues to slow down and for proper form and tactile cues to bring to right position. SpO2 drops to 88%. Total Physical Therapy Time Total Therapy 8 Minutes Total Physical 1 Therapy Units Summary Daily Note Summary Limited session due to bipap - needs cues for proper form with ex due to some confusion.
[2024-09-21] MEDS: LEVOFLOXACIN IN DEXTROSE 5 % 750 MG/150 ML PREMIX 100 MG IV (11:57)
--- NOTE | 2024-09-21 13:49 | SWNOTE1 ---
SHAYY sent physician note from yesterday, PT from today, labs, vitals, and nursing notes from today to Laura at [facility]. Pt will be returning to [facility] skilled.
--- NOTE | 2024-09-21 13:54 | SWNOTE1 ---
SW called pt's son and let him know that [facility] will have pt do rehab once she is discharged back. Pt's son in agreement. SW completed HENS and took packet to ICU in case of dc over the weekend.
[2024-09-21] MEDS: METHYLPREDNISOLONE SOD SUCC PF 125 MG/2 ML VIAL 60 MG IVP ×2 (14:57→20:29)
[2024-09-21] MEDS: METOPROLOL TARTRATE 25 MG TABLET PO (20:32)
[2024-09-21] MEDS: SUCRALFATE 1 GM TABLET PO (20:32)
[2024-09-21] MEDS: ENSURE ORIGINAL 237 ML BOTTLE PO (20:32)
[2024-09-21] MEDS: OLANZapine 5 MG TABLET PO (20:32)
[2024-09-21] MEDS: POTASSIUM CHLORIDE 10 MEQ ER TABLET PO (20:33)
[2024-09-21] MEDS: FAMOTIDINE 20 MG TABLET PO (21:04)
[2024-09-21] MEDS: DONEPEZIL HCL 10 MG TABLET PO (21:04)
[2024-09-21] MEDS: LORAZEPAM 2 MG/ML VIAL 0.5 MG IV (22:35)
[2024-09-22] VITALS (52 sets, daily range): BP systolic 131–142; BP diastolic 57–68; PULSE 55–98; TEMP 36.5–36.7; O2SAT 88–100
[2024-09-22] MEDS: METHYLPREDNISOLONE SOD SUCC PF 125 MG/2 ML VIAL 60 MG IVP ×2 (02:12→09:54)
[2024-09-22] MEDS: IPRATROPIUM/ALBUTEROL SULFATE 3 ML AMPUL.NEB IH ×2 (04:15→10:16)
[2024-09-22 05:52] LABS: Hematocrit 38.9 % (36.0-48.0); Hemoglobin 12.5 g/dL (12.0-16.0); Mean Corpuscular HGB Conc 32.1 g/dL (29.9-35.2); Mean Corpuscular Hemoglobin 32.1 pg (26.7-34.0); Mean Corpuscular Volume 99.7 fL (81.0-99.0); Mean Platelet Volume 12.3 fL (9.5-13.5); Platelet Count 244 10^3/uL (150-450); Red Cell Distribution Width 13.8 % (11.0-15.0); White Blood Count 15.7 10^3/uL (4.0-11.0)
--- NOTE | 2024-09-22 06:01 | RESP.RT ---
Patient taken off Bipap at 0200
[2024-09-22 06:03] LABS: Anion Gap 9.2; BUN Creatinine Ratio 17.1; Calcium 9.4 mg/dL (8.5-10.1); Carbon Dioxide 32.6 mmol/L (21.0-32.0); Chloride 108 mmol/L (98-107); Estimated GFR (African America >60 (>=60 mL/min/1.73m^2); Estimated GFR (Non-African Ame >60 (>=60 mL/min/1.73m^2); Glucose 186 mg/dL (74-106); Potassium 3.8 mmol/L (3.5-5.1); Sodium 146 mmol/L (136-145)
[2024-09-22 06:04] LABS: Band Neutrophils Absolute 0.2 10^3/uL (0.0-0.3); Segmented Neut Absolute Manual 14.91 10^3/uL (1.4-6.5)
[2024-09-22 06:05] LABS: Lymphocytes Absolute Manual 0.31 10^3/uL (1.20-3.80); Monocytes Absolute Manual 0.31 10^3/uL (0.30-0.80)
[2024-09-22] MEDS: PIPERACILLIN SODIUM/TAZOBACTAM 3.375 GM in 0.9 % SODIUM CHLORIDE 50 ML IV (06:09)
[2024-09-22] MEDS: LEVOTHYROXINE SODIUM 25 MCG TABLET 50 MCG PO (09:55)
[2024-09-22] MEDS: METOPROLOL TARTRATE 25 MG TABLET PO (09:55)
[2024-09-22] MEDS: POTASSIUM CHLORIDE 10 MEQ ER TABLET PO (09:55)
[2024-09-22] MEDS: CETIRIZINE HCL 10 MG TABLET PO (09:55)
[2024-09-22] MEDS: LIOTHYRONINE SODIUM 5 MCG TABLET 10 MCG PO (09:55)
[2024-09-22] MEDS: SUCRALFATE 1 GM TABLET PO (09:55)
[2024-09-22] MEDS: ENSURE ORIGINAL 237 ML BOTTLE PO (09:56)
[2024-09-22] MEDS: BACLOFEN 10 MG TABLET PO (09:56)
[2024-09-22] MEDS: LEVOFLOXACIN IN DEXTROSE 5 % 750 MG/150 ML PREMIX 100 MG IV (10:01)
[2024-09-22] MEDS: BUDESONIDE 0.5 MG/2 ML AMPULE NEB IH (10:16)
--- NOTE | 2024-09-22 11:20 | PT.DAILY ---
Physical Therapy Daily Note PT Daily Note/Assess Start: 09/21/24 11:13 Freq: Status: Active Protocol: Document 09/22/24 11:19 [id number] (Rec: 09/22/24 11:20 [id number]) Visit Not Completed Visit Not Completed Visit Not Completed Nursing request to hold Due to: Other Reason Visit Nursing request to hold PT this date as patient is Not Completed sleeping. Physical Therapy Daily Note/Assessment Time In/Time Out Time In 09:13 Time Out 09:15 Pain In Pain N/A Pain Out Pain N/A Subjective Subjective Nursing has requested PT to be held this date due to patient sleeping and would like patient to continue to rest. GG. Functional Abilities and Goals-Complete for Swing Bed Patients Only [id number]. Self-Care [id number]. Mobility
--- NOTE | 2024-09-23 00:29 | PM.DS1 ---
DS: Providers Provider Date of admission: 09/19/24 12:03 Primary care physician: Non-Staff Physician, Admitting clinician: Madi Dalal Attending physician on admission: Madi Dalal Consults: 09/19/24 12:56 Occupational Therapy Eval and Treat Routine Reason for consultation: Only if needed for Rehab Has provider been notified: No Physical Therapy Eval and Treat Routine Reason for consultation: Eval and Treat Has provider been notified: No Attending physician on discharge: Shaikh Baron Discharging clinician: Shaikh Baron Anticipated date of discharge: 09/22/24 DS: Diagnosis Discharge Diagnosis (1) Sepsis: Assessment and plan: Initially presented with Sepsis (HR> 90, RR> 20, WBC>20K) with resp failure requiring BIPAP therapy for increased work of breathing/hypoxia. On 2 L O2 via NC, Back to baseline today with no evidence of resp distress. Qualifiers: Sepsis type: sepsis due to unspecified organism Sepsis acute organ dysfunction status: with acute organ dysfunction Severe sepsis acute organ dysfunction type: acute respiratory failure Acute respiratory failure type: with hypoxia Severe sepsis shock status: without septic shock Qualified Code(s): A41.9 - Sepsis, unspecified organism; R65.20 - Severe sepsis without septic shock; J96.01 - Acute respiratory failure with hypoxia (2) Pneumonia: Assessment and plan: Multifocal PnA - was initially on Zosyn/Levaquin.Cultures negative. Discharged on oral Lervaquin Qualifiers: Pneumonia type: due to unspecified organism Laterality: bilateral Lung location: unspecified part of lung Qualified Code(s): J18.9 - Pneumonia, unspecified organism (3) Respiratory failure: Assessment and plan: Initially required BIPAP for resp failure/work of breathing and hypoxia. Gradually weaned off and now on 2 L O2 - her baseline. No resp complaints reported today by patient. Qualifiers: Chronicity: acute on chronic Respiratory failure complication: hypoxia Qualified Code(s): J96.21 - Acute and chronic respiratory failure with hypoxia (4) Lactic acidosis: Assessment and plan: Due to hypoxia, sepsis (5) Delirium due to general medical condition: Assessment and plan: Required treatment during hospital stay, nicolas at night for agitation/confusion. Calm/comfortable in the morning and at her baseline. (6) COPD exacerbation: Assessment and plan: Due to Pneumonia. Improved today. Stable for discharge on PO prednisone. Required IV solumedrol during admission (7) Hypothyroidism: Assessment and plan: C/w Levothyroxine. Qualifiers: Hypothyroidism type: unspecified Qualified Code(s): E03.9 - Hypothyroidism, unspecified (8) Dementia: Assessment and plan: At extended care facility in memory unit C/w Donezepil Qualifiers: Dementia type: Alzheimer's Alzheimer's disease onset: unspecified onset Dementia severity: severe Dementia behavioral or psychological symptom: with mood disturbance Qualified Code(s): G30.9 - Alzheimer's disease, unspecified; F02.C3 - Dementia in other diseases classified elsewhere, severe, with mood disturbance (9) Hypertension: Assessment and plan: BP stable. C/w home medications. Qualifiers: Hypertension type: primary hypertension Qualified Code(s): I10 - Essential (primary) hypertension DS: Summary Hospital Course Hospital Course: 78 y o female with hx of dementia presented to ED from extended care facility for worsening SOB, cough and was found to have Sepsis, Acute on chronic resp failure with hypoxia sec to Multifocal PNA. Patient initially required treatment with BIPAP therapy for labored breathing/respiratory distress/increased work of breathing. She was also treated with IV solumedrol, duonebs and IV Levaquin/Zosyn for COPD exacerbation/multifocal PNA. Patient gradually improved during admission and was weaned off of BIPAP and placed on 4 L O2. Her O2 requirement continued to improve and she was weaned off to 2 L O2 , her baseline. Upon my evaluation, patient was comfortable, had no acute problems/active complaints to offer and is medically stable for discharge on oral levaquin and prednisone to finish treatment course for Pneumonia/COPD exacerbation. Status at Discharge Overall status at discharge: patient is back to baseline Time Spent with Patient Time attestation: Total time spent providing and/or coordinating discharge services: Time spent: greater than 30 minutes Exam Constitutional Vital Signs, click to edit/add: Last Vital Signs Temp 98.0 F 09/22/24 13:00 Pulse 82 09/22/24 12:40 Resp 20 09/22/24 12:40 BP 142/68 H 09/22/24 13:00 Pulse Ox 98 09/22/24 13:30 O2 Del Method Nasal Cannula 09/22/24 10:15 O2 Flow Rate 2 09/22/24 10:15 FiO2 35 09/21/24 23:00 Documenting provider has reviewed patient's vital signs: yes Common normals: no apparent distress General appearance: cooperative and comfortable Respiratory Common normals: normal respiratory effort and clear to auscultation bilaterally Effort & inspection: able to speak in complete sentences Auscultation: clear to auscultation bilaterally Cardio Common normals: regular rate, S1 normal heart sound and S2 normal heart sound Rate: regular rate Heart sounds: S1 normal and S2 normal Neuro Common normals: moves all extremities and no focal motor deficits Psych Common normals: mental status grossly normal, denies hallucinations, denies homicidal ideation and denies suicidal ideation DS: Data Data Completed and Pending Labs on day of discharge: Labs from last 24 hours 09/22/24 05:42 WBC 15.7 H RBC 3.90 L Hgb 12.5 Hct 38.9 MCV 99.7 H MCH 32.1 MCHC 32.1 RDW 13.8 Plt Count 244 MPV 12.3 Seg Neuts % (Manual) 95.0 H Band Neutrophils % 1.0 Lymphocytes % (Manual) 2.0 L Monocytes % (Manual) 2.0 Eosinophils % (Manual) 0.0 L Basophils % (Manual) 0.0 L Neutrophils # (Manual) 14.91 H Band Neutrophils # 0.2 Lymphocytes # (Manual) 0.31 L Monocytes # (Manual) 0.31 Eosinophils # (Manual) 0.00 Basophils # (Manual) 0.00 Sodium 146 H Potassium 3.8 Chloride 108 H Carbon Dioxide 32.6 H Anion Gap 9.2 BUN 13.0 Creatinine 0.76 Est GFR ( Amer) >60 Est GFR (Non-Af Amer) >60 BUN/Creatinine Ratio 17.1 Glucose 186 H Calcium 9.4 Discharge Plan Discharge Disposition: Xfer SNF Condition: Good Discharge Medications: New prednisone 20 mg tablet 20 mg PO BID Qty: 10 0RF levofloxacin 750 mg tablet 750 mg PO DAILY 5 Days Qty: 5 0RF Continued donepezil 10 mg tablet 10 mg PO BEDTIME famotidine 20 mg tablet 20 mg PO BEDTIME levothyroxine 50 mcg tablet 50 mcg PO DAILY liothyronine 5 mcg tablet 10 mcg PO DAILY Allergy Relief (loratadine) 10 mg capsule 10 mg PO DAILY melatonin 3 mg capsule 9 mg PO BEDTIME metoprolol tartrate 25 mg tablet 25 mg PO BID albuterol sulfate 0.63 mg/3 mL solution for nebulization 0.63 mg inhalation Q6H PRN (Reason: shortness of breath or wheezing) sucralfate 1 gram tablet 1 g PO BID baclofen 10 mg tablet 10 mg PO TID albuterol sulfate 90 mcg/actuation HFA aerosol inhaler 2 puff INHALATION Q4H PRN (Reason: shortness of breath or wheezing) potassium chloride 10 mEq tablet,ER particles/crystals 10 meq PO BID fluticasone furoate-vilanterol [Breo Ellipta] 200-25 mcg/dose blister with device 1 inh INHALATION Q24H Print Language: [place] [employer] Instructions: Discharge back to [facility] skilled Forms: Portal Instructions Follow Up Appointments: F/u with PCP in one week Discharge Date/Time: 09/22/24 13:31
--- NOTE | 2024-09-24 10:23 | SWNOTE1 ---
SHAYY received a message from Sangita at [facility] and pt voiced she does not have her teeth and she thinks they are here. SHAYY let med/surge director know. Sangita at [facility] also requesting dc med rec and dc summary as it was not sent when pt was discharged. SHAYY faxed over dc med rec and dc summary to Sangita at [facility].
== END 2024-09-22 13:31 | DRG 871 ==
LOC: ER 11:37 → ICU 12:19
PROVIDERS: Admitting Provider Family Medicine; Emergency Provider Emergency Medicine; Visit Provider Family Medicine
DX: A41.9 Sepsis, unspecified organism (principal); J18.9 Pneumonia, unspecified organism; J96.21 Acute and chronic respiratory failure with hypoxia; E87.20 Acidosis, unspecified; J44.0 Chronic obstructive pulmonary disease with (acute) lower respiratory infection; J44.1 Chronic obstructive pulmonary disease with (acute) exacerbation; F03.90 Unspecified dementia, unspecified severity, without behavioral disturbance, psychotic disturbance, mood disturbance, and anxiety; F05 Delirium due to known physiological condition; R65.20 Severe sepsis without septic shock; E03.9 Hypothyroidism, unspecified; I10 Essential (primary) hypertension; R73.9 Hyperglycemia, unspecified; K21.9 Gastro-esophageal reflux disease without esophagitis; G47.00 Insomnia, unspecified; Y95 Nosocomial condition; Y92.129 Unspecified place in nursing home as the place of occurrence of the external cause; Z79.51 Long term (current) use of inhaled steroids; Z79.890 Hormone replacement therapy; Z79.899 Other long term (current) drug therapy
CPT/HCPCS: 36415; 36600; 71045; 71275; 80048; 80053; 81001; 82805; 83605; 83880; 84436; 84443; 84484; 85007; 85025; 85027; 85610; 87040; 87070; 93005; 94640; 94660; 94667; 94668; 94761; 96365; 96367; 97110; 97161; 97165; 97530; 99285; J2060; J2359; J2543; J2919; J3475; J3486; Q9967